=== PATIENT | male | born 1965 | race Caucasian/White ===

== ENCOUNTER 2017-04-30 08:36 | Emergency (ER) | payer BC ==
[2017-04-30] MEDS ORDERED: HYDROmorphone 0.5 MG/0.5 ML SYRINGE IVP STA ×2 (09:04→11:17)
[2017-04-30] MEDS ORDERED: ONDANSETRON 4 MG/2 ML VIAL IVP STA (09:04)
[2017-04-30] MEDS ORDERED: SODIUM CHLORIDE 0.9% 2,000 ML IV STA (09:04)
[2017-04-30] MEDS ORDERED: ACETAMINOPHEN TAB 500 MG TAB PO STA (09:30)
--- NOTE | 2017-04-30 09:31 | ED ---
Abdominal Pain HPI - General Chief Complaint: Abdominal Pain Stated Complaint: Abd Pain, Headache, Weak Time Seen by Provider: 04/30/17 08:49 Source: patient, RN notes reviewed Mode of arrival: wheelchair Limitations: no limitations - History of Present Illness Initial Comments: This a 52-year-old male presents emergency Department chief complaint abdominal pain. Patient states the pressure yesterday as worsen. He states it's in his right lower quadrant states that he's been having nausea, diarrhea throughout the night. Patient states that he just does not feel well he states he aches all over does states that he took ibuprofen for seizure last night. Patient denies any dysuria or hematuria. Patient had a prior hernia repairs no other abdominal surgeries. Patient has no history of diverticulitis, colitis. Patient denies chest pain or shortness of breath denies any URI symptoms. Denies sick contacts no recent traveling - Related Data Home Medications Medication Instructions Recorded Confirmed Ibuprofen [Motrin] 400 - 800 mg PO Q6HR PRN 04/30/17 04/30/17 Previous Rx's Medication Instructions Recorded Dicyclomine [Bentyl] 20 mg PO TID #30 tablet 04/30/17 Ondansetron Odt [Zofran Odt] 4 mg PO Q8HR PRN #10 tab 04/30/17 Allergies Allergy/AdvReac Type Severity Reaction Status Date / Time No Known Allergies Allergy Verified 04/30/17 09:04 Review of Systems ROS Statement: Those systems with pertinent positive or pertinent negative responses have been documented in the HPI. ROS Other: All systems not noted in ROS Statement are negative. Past Medical History Past Medical History: No Reported History History of Any Multi-Drug Resistant Organisms: None Reported Past Surgical History: Adenoidectomy, Hernia Repair, Orthopedic Surgery, Tonsillectomy Additional Past Surgical History / Comment(s): rotator cuff/bicep muscle cyst removed Past Psychological History: No Psychological Hx Reported Smoking Status: Never smoker Past Alcohol Use History: Rare Past Drug Use History: None Reported General Exam Limitations: no limitations General appearance: alert, in no apparent distress Head exam: Present: atraumatic, normocephalic, normal inspection Respiratory exam: Present: normal lung sounds bilaterally. Absent: respiratory distress, wheezes, rales, rhonchi, stridor Cardiovascular Exam: Present: normal rhythm, tachycardia, normal heart sounds. Absent: systolic murmur, diastolic murmur, rubs, gallop, clicks GI/Abdominal exam: Present: soft, tenderness (Mild tenderness right lower quadrant), normal bowel sounds. Absent: distended, guarding, rebound, rigid Back exam: Present: CVA tenderness (R). Absent: CVA tenderness (L) Skin exam: Present: warm, dry, intact, normal color. Absent: rash Course Vital Signs 04/30/17 04/30/17 08:36 11:14 Temperature 100.7 F H 101.2 F H Pulse Rate 107 H 95 Respiratory 18 20 Rate Blood Pressure 113/69 107/74 O2 Sat by Pulse 100 98 Oximetry Medical Decision Making - Medical Decision Making This a 52-year-old male presents emergency Department chief complaint of diarrhea, abdominal pain. Patient has blood work was reviewed shows mild elevation of white count, otherwise within normal limits. Patient CT is is consistent with gastroenteritis. Patient we discharged with denies medication, Bentyl and close follow-up with primary care physician. We discussed controlling fever Tylenol Motrin. - Lab Data Result diagrams: 04/30/17 09:00 04/30/17 09:00 Lab Results 04/30/17 04/30/17 04/30/17 Range/Units 09:00 09:00 09:00 WBC 15.4 H (3.8-10.6) k/uL RBC 5.18 (4.30-5.90) m/uL Hgb 14.7 (13.0-17.5) gm/dL Hct 44.6 (39.0-53.0) % MCV 86.0 (80.0-100.0) fL MCH 28.4 (25.0-35.0) pg MCHC 33.0 (31.0-37.0) g/dL RDW 14.3 (11.5-15.5) % Plt Count 281 (150-450) k/uL Neutrophils % 86 % Lymphocytes % 7 % Monocytes % 5 % Eosinophils % 0 % Basophils % 0 % Neutrophils # 13.3 H (1.3-7.7) k/uL Lymphocytes # 1.1 (1.0-4.8) k/uL Monocytes # 0.8 (0-1.0) k/uL Eosinophils # 0.0 (0-0.7) k/uL Basophils # 0.1 (0-0.2) k/uL PT (9.0-12.0) sec INR (<1.2) APTT (22.0-30.0) sec Sodium 134 L (137-145) mmol/L Potassium 4.4 (3.5-5.1) mmol/L Chloride 99 (98-107) mmol/L Carbon Dioxide 24 (22-30) mmol/L Anion Gap 11 mmol/L BUN 21 H (9-20) mg/dL Creatinine 1.12 (0.66-1.25) mg/dL Est GFR (MDRD) Af Amer >60 (>60 ml/min/1.73 sqM) Est GFR (MDRD) Non-Af >60 (>60 ml/min/1.73 sqM) Glucose 105 H (74-99) mg/dL Plasma Lactic Acid J Luis 2.0 (0.7-2.0) mmol/L Calcium 9.5 (8.4-10.2) mg/dL Total Bilirubin 0.7 (0.2-1.3) mg/dL AST 39 (17-59) U/L ALT 67 (21-72) U/L Alkaline Phosphatase 48 (38-126) U/L Total Protein 7.2 (6.3-8.2) g/dL Albumin 4.5 (3.5-5.0) g/dL Amylase 35 (30-110) U/L Lipase 65 (23-300) U/L Urine Color Urine Appearance (Clear) Urine pH (5.0-8.0) Ur Specific [place] (1.001-1.035) Urine Protein (Negative) Urine Glucose (UA) (Negative) Urine Ketones (Negative) Urine Blood (Negative) Urine Nitrite (Negative) Urine Bilirubin (Negative) Urine Urobilinogen (<2.0) mg/dL Ur Leukocyte Esterase (Negative) 04/30/17 04/30/17 Range/Units 09:00 09:00 WBC (3.8-10.6) k/uL RBC (4.30-5.90) m/uL Hgb (13.0-17.5) gm/dL Hct (39.0-53.0) % MCV (80.0-100.0) fL MCH (25.0-35.0) pg MCHC (31.0-37.0) g/dL RDW (11.5-15.5) % Plt Count (150-450) k/uL Neutrophils % % Lymphocytes % % Monocytes % % Eosinophils % % Basophils % % Neutrophils # (1.3-7.7) k/uL Lymphocytes # (1.0-4.8) k/uL Monocytes # (0-1.0) k/uL Eosinophils # (0-0.7) k/uL Basophils # (0-0.2) k/uL PT 11.1 (9.0-12.0) sec INR 1.1 (<1.2) APTT 25.1 (22.0-30.0) sec Sodium (137-145) mmol/L Potassium (3.5-5.1) mmol/L Chloride (98-107) mmol/L Carbon Dioxide (22-30) mmol/L Anion Gap mmol/L BUN (9-20) mg/dL Creatinine (0.66-1.25) mg/dL Est GFR (MDRD) Af Amer (>60 ml/min/1.73 sqM) Est GFR (MDRD) Non-Af (>60 ml/min/1.73 sqM) Glucose (74-99) mg/dL Plasma Lactic Acid J Luis (0.7-2.0) mmol/L Calcium (8.4-10.2) mg/dL Total Bilirubin (0.2-1.3) mg/dL AST (17-59) U/L ALT (21-72) U/L Alkaline Phosphatase (38-126) U/L Total Protein (6.3-8.2) g/dL Albumin (3.5-5.0) g/dL Amylase (30-110) U/L Lipase (23-300) U/L Urine Color Yellow Urine Appearance Clear (Clear) Urine pH 6.5 (5.0-8.0) Ur Specific [place] 1.017 (1.001-1.035) Urine Protein Negative (Negative) Urine Glucose (UA) Negative (Negative) Urine Ketones Negative (Negative) Urine Blood Negative (Negative) Urine Nitrite Negative (Negative) Urine Bilirubin Negative (Negative) Urine Urobilinogen <2.0 (<2.0) mg/dL Ur Leukocyte Esterase Negative (Negative) Disposition Clinical Impression: Abdominal pain, Gastroenteritis Disposition: HOME SELF-CARE Condition: Stable Instructions: Gastroenteritis (ED) Additional Instructions: Please return to the Emergency Department if symptoms worsen or any other concerns. Prescriptions: Dicyclomine [Bentyl] 20 mg PO TID #30 tablet Ondansetron Odt [Zofran Odt] 4 mg PO Q8HR PRN #10 tab PRN Reason: Nausea Referrals: Armando Smith MD [STAFF PHYSICIAN] - 1-2 days Time of Disposition: 11:18
[2017-04-30 09:52] LABS: Appearance,Urine Clear (Clear); Bilirubin,Urine Negative (Negative); Glucose,Urine (UA) Negative (Negative); Ketones,Urine Negative (Negative); Leukocyte Esterase,Urine Negative (Negative); Nitrite,Urine Negative (Negative); PH, Urine 6.5 (5.0-8.0); Protein,Urine Negative (Negative); Specific Gravity,Urine 1.017 (1.001-1.035); UA Billing (MACRO vs. MICRO) CHEM; Urobilinogen,Urine <2.0 mg/dL (<2.0)
[2017-04-30 09:55] LABS: INR 1.1 (<1.2); Partial Thromboplastin Time 25.1 sec (22.0-30.0); Prothrombin Time 11.1 sec (9.0-12.0)
[2017-04-30 10:03] LABS: ALT 67 U/L (21-72); AST 39 U/L (17-59); Alkaline Phosphatase 48 U/L (38-126); Amylase 35 U/L (30-110); Anion Gap 11 mmol/L; Blood Urea Nitrogen 21 mg/dL (9-20); Calcium 9.5 mg/dL (8.4-10.2); Carbon Dioxide 24 mmol/L (22-30); Chloride 99 mmol/L (98-107); Glucose 105 mg/dL (74-99); Non-African American GFR(MDRD) >60 (>60 ml/min/1.73 sqM); Potassium 4.4 mmol/L (3.5-5.1); Sodium 134 mmol/L (137-145); Total Bilirubin 0.7 mg/dL (0.2-1.3); Total Protein 7.2 g/dL (6.3-8.2)
[2017-04-30] MEDS ORDERED: RX INFO: IV CONTRAST WAS GIVEN 1 EACH MISC MISCELLANE PRN (10:05)
[2017-04-30 10:13] LABS: Basophils # (A) 0.1 k/uL (0-0.2); Basophils % (A) 0 %; CH 28.8; CHCM 33.6; Eosinophils % (A) 0 %; HCT 44.6 % (39.0-53.0); HDW 2.33; HGB 14.7 gm/dL (13.0-17.5); Luc # (Auto) 0.11; Luc % (Auto) 1; Lymphocytes # (A) 1.1 k/uL (1.0-4.8); Lymphocytes % (A) 7 %; MCH 28.4 pg (25.0-35.0); Mean Platelet Volume 8.2; Monocytes # (A) 0.8 k/uL (0-1.0); Monocytes % (A) 5 %; Neutrophils # (A) 13.3 k/uL (1.3-7.7); Neutrophils % (A) 86 %; RBC 5.18 m/uL (4.30-5.90); RDW 14.3 % (11.5-15.5); WBC 15.4 k/uL (3.8-10.6); WBC (Perox) 15.02
--- NOTE | 2017-04-30 11:15 | CT ---
EXAMINATION TYPE: CT abdomen pelvis w con DATE OF EXAM: 04/30/2017 COMPARISON: NONE HISTORY: Abd pain CT DLP: 1263.2 mGycm CONTRAST: CT scan of the abdomen and pelvis is performed without Oral Contrast and with IV Contrast, patient in jected with 100 mL of Omnipaque 300. FINDINGS: LUNG BASES-: No visible nodule. No infiltrate. LIVER/GB: No calcified gallstones. Hepatic steatosis noted. No space occupying hepatic lesion. Wenceslao iary tree is of normal caliber. PANCREAS: No inflammation. No distinct mass. SPLEEN: No splenic enlargement. No lesion seen. ADRENALS: No nodule. No thickening. KIDNEYS/BLADDER: No hydronephrosis. No nephrolithiasis. No disctinct renal mass. Urinary bladder g rossly unremarkable. BOWEL: Normal appendix. Fluid distended small and large bowel may reflect gastroenteritis. Correlate clinically. GENITAL ORGANS: No gross abnormality. LYMPH NODES: No greater than 1cm abdominal or pelvic lymph nodes are appreciated. AORTA: No significant abnormality. OSSEOUS STRUCTURES: No significant abnormality is seen. OTHER: No significant additional abnormality is seen. IMPRESSION: 1. Correlate for gastroenteritis. 2. Normal appendix.
[2017-04-30 11:43] VITALS: RESP 18; TEMP 100.7
[2017-04-30 12:18] VITALS: BP 115/60; PULSE 79
== END 2017-04-30 12:16 | disposition home or self-care (01) ==
LOC: EC 08:36
DX: K52.9 Noninfective gastroenteritis and colitis, unspecified (principal); D72.829 Elevated white blood cell count, unspecified; R00.0 Tachycardia, unspecified
CPT/HCPCS: 36415; 74177; 80053; 81003; 82150; 83605; 83690; 85025; 85610; 85730; 87040; 96361; 96374; 96375; 96376; 99284

== ENCOUNTER → 2017-05-23 | Day surgery (SDC) | payer BC ==
[2017-05-22 09:33] VITALS: BMI 32.3
[~2017-05-23] MED LIST: LACTATED RINGERS 1,000 ML IV ONE; LACTATED RINGERS 1,000 ML IV SCH; LIDOCAINE 1% 20 ML VIAL (10MG/ML) FOR IV START INTRADERMA PRN; LIDOCAINE 1% INJ 10MG/ML (20 ML MDV) ONE; PROPOFOL 10 MG/ML 20 ML VIAL IV ONE
[2017-05-23 22:07] VITALS: BP 128/79; PULSE 58; RESP 18; TEMP 98
--- NOTE | 2017-05-23 22:55 | PCN ---
PROCEDURE NOTE REQUESTING PHYSICIAN: None. BRIEF HISTORY: Patient is a 52-year-old pleasant white male scheduled for a colonoscopy as part of evaluation of abdominal pain and change in bowel habits. He had an episode of severe lower abdominal pain followed by diarrhea and fever for 5 days, went to the emergency room, had a CT of the abdomen done that showed thickening of the right colon. He was treated with antibiotics for 10 days. He still had persistent symptoms. He was given a 2nd course of antibiotics. He is doing much better, but still has some lower abdominal pain and occasional diarrhea. He was then scheduled for a colonoscopy to evaluate further. PROCEDURE PERFORMED: Colonoscopy with snare polypectomy and biopsy. PREOPERATIVE DIAGNOSIS: Lower abdominal pain and diarrhea. IV SEDATION: By anesthesia. PROCEDURE: After informed consent was obtained from the patient, he was brought to the endoscopy unit. IV conscious sedation was administered by Anesthesia under continuous monitoring. Initial digital examination was normal. The Olympus GI 190 video colonoscope was advanced into the rectum and gradually advanced to the cecum without any difficulty. Careful examination was performed as the scope was carefully being withdrawn. The ileocecal valve and appendiceal orifice were visualized and appeared normal. mucosa of the cecum, ascending colon appeared normal. In the ascending colon, there was a 1-cm polyp that was removed by snare polypectomy. The rest of the ascending colon, transverse colon, descending colon, sigmoid colon, and rectum appeared normal. In the rectum, retroflexion was performed. No lesions were noted. Random biopsies were done from the transverse colon and descending colon and the patient tolerated the procedure well. IMPRESSION: 1. 1-cm ascending colon polyp, status post snare polypectomy. 2. Rest of the colon appeared normal. RECOMMENDATIONS: Findings of this examination were discussed with the patient as well as his family. He was advised to follow up wet the biopsy results. If the biopsy shows a tubular adenoma, he can have a repeat colonoscopy in 5 years. MMODL / IJN: [id number] /
== END ==
LOC: ORWHC2ENDO 10:03
PROVIDERS: ATTEND Internal Medicine Gastroenterology
DX: D12.2 Benign neoplasm of ascending colon (principal); R10.30 Lower abdominal pain, unspecified; R19.7 Diarrhea, unspecified; Z79.899 Other long term (current) drug therapy
CPT/HCPCS: 88305; 45380; 45385; J2001; J2704

== ENCOUNTER 2017-08-08 15:27 | Emergency (ER) | payer BC ==
[2017-08-08 15:42] VITALS: TEMP 97.1
--- NOTE | 2017-08-08 16:14 | XR ---
EXAMINATION TYPE: XR chest 2V DATE OF EXAM: 08/08/2017 COMPARISON: 07/07/2014 TECHNIQUE: PA and lateral views submitted. HISTORY: Pain FINDINGS: The lungs are clear and there is no pneumothorax, pleural effusion, or focal pneumonia. Chronic rib cage deformity in the left. The lungs are clear. Hypertrophic and degenerative change of the spine. IMPRESSION: 1. No acute process.
[2017-08-08] MEDS ORDERED: KETOROLAC 30 MG/ML 1 ML VIAL IVP STA (17:20)
[2017-08-08] MEDS ORDERED: RX INFO: IV CONTRAST WAS GIVEN 1 EACH MISC MISCELLANE PRN (17:20)
[2017-08-08] MEDS ORDERED: ONDANSETRON 4 MG/2 ML VIAL IVP STA (17:20)
[2017-08-08] MEDS ORDERED: MORPHINE SULFATE 4 MG/ML SYRINGE IVP STA (17:20)
--- NOTE | 2017-08-08 17:34 | ED ---
General Adult HPI - General Chief complaint: Recheck/Abnormal Lab/Rx Stated complaint: Side pain Time Seen by Provider: 08/08/17 16:57 Source: patient Mode of arrival: wheelchair Limitations: no limitations - History of Present Illness Initial comments: Patient is a 52-year-old male presents with chief complaint of left lower back/ flank pain. The patient states this started about 2 hours ago when he sneezed at home. Patient stays immediately had intense pain to the back. Patient states it's sharp and stabbing in nature. It is aggravated with movement, bending, twisting. Bleeding factors are sitting still. Patient has never had pain like this before. Timing is constant. - Related Data Home Medications Medication Instructions Recorded Confirmed Acetaminophen [Tylenol Extra 1,000 mg PO Q6H PRN 08/08/17 08/08/17 Strength] Previous Rx's Medication Instructions Recorded Acetaminophen Tab [Tylenol Tab] 1,000 mg PO Q6HR #30 tablet 08/08/17 Diazepam [Valium] 5 mg PO TID #10 tab 08/08/17 Ibuprofen [Motrin] 800 mg PO Q8H #20 tab 08/08/17 Allergies Allergy/AdvReac Type Severity Reaction Status Date / Time No Known Allergies Allergy Verified 08/08/17 16:59 Review of Systems ROS Statement: Those systems with pertinent positive or pertinent negative responses have been documented in the HPI. ROS Other: All systems not noted in ROS Statement are negative. Gastrointestinal: Reports: nausea Musculoskeletal: Reports: back pain Past Medical History Past Medical History: No Reported History History of Any Multi-Drug Resistant Organisms: None Reported Past Surgical History: Adenoidectomy, Hernia Repair, Orthopedic Surgery, Tonsillectomy Additional Past Surgical History / Comment(s): rotator cuff/bicep muscle cyst removed Past Anesthesia/Blood Transfusion Reactions: No Reported Reaction Past Psychological History: No Psychological Hx Reported Smoking Status: Never smoker - Past Family History Mother Family Medical History: Cancer General Exam Limitations: no limitations General appearance: alert, in no apparent distress Head exam: Present: atraumatic, normocephalic Eye exam: Present: normal appearance ENT exam: Present: mucous membranes moist Respiratory exam: Present: normal lung sounds bilaterally. Absent: respiratory distress, wheezes Cardiovascular Exam: Present: regular rate, normal rhythm GI/Abdominal exam: Present: soft. Absent: distended, tenderness Rectal exam: Present: deferred Back exam: Present: tenderness, CVA tenderness (L), muscle spasm. Absent: CVA tenderness (R) Neurological exam: Present: alert, oriented X3 Psychiatric exam: Present: normal affect, normal mood Skin exam: Present: warm, dry, intact Course Vital Signs 08/08/17 08/08/17 15:39 18:56 Temperature 97.1 F L Pulse Rate 87 56 L Respiratory 17 16 Rate Blood Pressure 136/77 113/71 O2 Sat by Pulse 97 97 Oximetry Medical Decision Making - Medical Decision Making Patient is a 52-year-old male presents with a chief complaint of left lower back and flank pain after sneezing. Initial evaluation shows stable vital signs , patient is in no acute distress. Patient has significant pain with movement. Patient was given a dose pain medication, he'll be evaluated basic labs and a computed tomography scan of the abdomen and pelvis with contrast. 7:57 PM Lab evaluation of this patient is unremarkable. Computed tomography scan of the abdomen and pelvis with contrast does not show any acute abnormality. Of note, there is colonic diverticula however there is no evidence of diverticulitis. Patient was informed of these findings. At this time, patient' s pain is likely musculoskeletal in nature. Patient was instructed to follow- up with his primary care doctor in 1-2 days or return to the emergency department for reevaluation if symptoms worsen or change. Patient was instructed to take Motrin, Tylenol, and as needed Valium for pain. - Lab Data Result diagrams: 08/08/17 17:35 08/08/17 17:35 Lab Results 08/08/17 08/08/17 08/08/17 Range/Units 17:35 17:35 18:38 WBC 8.8 (3.8-10.6) k/uL RBC 5.22 (4.30-5.90) m/uL Hgb 15.0 (13.0-17.5) gm/dL Hct 44.4 (39.0-53.0) % MCV 85.0 (80.0-100.0) fL MCH 28.7 (25.0-35.0) pg MCHC 33.8 (31.0-37.0) g/dL RDW 13.1 (11.5-15.5) % Plt Count 298 (150-450) k/uL Neutrophils % 57 % Lymphocytes % 29 % Monocytes % 7 % Eosinophils % 3 % Basophils % 1 % Neutrophils # 5.0 (1.3-7.7) k/uL Lymphocytes # 2.6 (1.0-4.8) k/uL Monocytes # 0.7 (0-1.0) k/uL Eosinophils # 0.3 (0-0.7) k/uL Basophils # 0.1 (0-0.2) k/uL Sodium 137 (137-145) mmol/L Potassium 4.7 (3.5-5.1) mmol/L Chloride 102 (98-107) mmol/L Carbon Dioxide 26 (22-30) mmol/L Anion Gap 9 mmol/L BUN 24 H (9-20) mg/dL Creatinine 0.97 (0.66-1.25) mg/dL Est GFR (CKD-EPI)AfAm >90 (>60 ml/min/1.73 sqM) Est GFR (CKD-EPI)NonAf >90 (>60 ml/min/1.73 sqM) Glucose 88 (74-99) mg/dL Calcium 9.7 (8.4-10.2) mg/dL Urine Color Yellow Urine Appearance Clear (Clear) Urine pH 5.5 (5.0-8.0) Ur Specific [place] 1.024 (1.001-1.035) Urine Protein Negative (Negative) Urine Glucose (UA) Negative (Negative) Urine Ketones Negative (Negative) Urine Blood Negative (Negative) Urine Nitrite Negative (Negative) Urine Bilirubin Negative (Negative) Urine Urobilinogen <2.0 (<2.0) mg/dL Ur Leukocyte Esterase Negative (Negative) Disposition Clinical Impression: Low back pain Disposition: HOME SELF-CARE Condition: Good Prescriptions: Acetaminophen Tab [Tylenol Tab] 1,000 mg PO Q6HR #30 tablet Diazepam [Valium] 5 mg PO TID #10 tab Ibuprofen [Motrin] 800 mg PO Q8H #20 tab Referrals: None,Stated [Primary Care Provider] - 1-2 days
[2017-08-08 18:11] LABS: Basophils # (A) 0.1 k/uL (0-0.2); Basophils % (A) 1 %; Eosinophils # (A) 0.3 k/uL (0-0.7); Eosinophils % (A) 3 %; HCT 44.4 % (39.0-53.0); Lymphocytes # (A) 2.6 k/uL (1.0-4.8); Lymphocytes % (A) 29 %; MCH 28.7 pg (25.0-35.0); MCHC 33.8 g/dL (31.0-37.0); Mean Platelet Volume 7.3; Monocytes # (A) 0.7 k/uL (0-1.0); Monocytes % (A) 7 %; Neutrophils % (A) 57 %; Platelet Count 298 k/uL (150-450); RBC 5.22 m/uL (4.30-5.90); RDW 13.1 % (11.5-15.5); WBC 8.8 k/uL (3.8-10.6)
[2017-08-08 18:20] LABS: Anion Gap 9 mmol/L; Blood Urea Nitrogen 24 mg/dL (9-20); Calcium 9.7 mg/dL (8.4-10.2); Carbon Dioxide 26 mmol/L (22-30); Chloride 102 mmol/L (98-107); Glucose 88 mg/dL (74-99); Potassium 4.7 mmol/L (3.5-5.1); Sodium 137 mmol/L (137-145)
[2017-08-08 18:57] VITALS: RESP 16
[2017-08-08 18:57] LABS: Appearance,Urine Clear (Clear); Bilirubin,Urine Negative (Negative); Blood,Urine Negative (Negative); Color,Urine Yellow; Glucose,Urine (UA) Negative (Negative); Ketones,Urine Negative (Negative); Leukocyte Esterase,Urine Negative (Negative); Nitrite,Urine Negative (Negative); PH, Urine 5.5 (5.0-8.0); Protein,Urine Negative (Negative); Specific Gravity,Urine 1.024 (1.001-1.035); Urobilinogen,Urine <2.0 mg/dL (<2.0)
--- NOTE | 2017-08-08 19:06 | CT ---
EXAMINATION TYPE: CT abdomen pelvis w con DATE OF EXAM: 08/08/2017 COMPARISON: 04/30/2017 HISTORY: Right sided pain after sneezing CT DLP: 1112 mGycm Automated exposure control for dose reduction was used. TECHNIQUE: Helical acquisition of images was performed from the lung bases through the pelvis. CONTRAST: Performed without Oral Contrast and with IV Contrast, patient injected with 100 mL of Omnipaque 300. FINDINGS: Lung bases are clear. There is no pleural effusion. Heart size is normal. The liver spleen pancreas gallbladder appear normal. Bile ducts are not dilated. There is no adrenal mass. Kidneys show satisfactory contrast opacification. There is no hydronephrosi s. There is no retroperitoneal adenopathy. Ureters are not dilated. There is no ascites. I see no intestinal wall thickening. There are no dilated loops. Appendix appear s normal. Bladder distends smoothly. There is no sign of a pelvic mass. There is no ascites. There is no sign of free air. There are a few sigmoid diverticula. There is no sign of diverticulitis. I see no bony destructive process. Lumbar spine is intact. IMPRESSION: THERE ARE A FEW SIGMOID DIVERTICULA. OTHERWISE NEGATIVE CT SCAN OF THE ABDOMEN AND PELVIS.
[2017-08-08 20:12] VITALS: BP 117/59; PULSE 59
== END 2017-08-08 20:11 | disposition home or self-care (01) ==
LOC: EC 15:27
DX: M54.5 Low back pain (principal); K57.32 Diverticulitis of large intestine without perforation or abscess without bleeding; R10.9 Unspecified abdominal pain; R06.7 Sneezing
CPT/HCPCS: 96375 ×3; 96374 ×2; 99284 ×2; 36415; 80048; 85025; 81003; 71046; 74177; J2270; J2405; J1885; Q9967

== ENCOUNTER 2018-01-27 17:51 | Observation (INO) | payer BC ==
[2018-01-27] MEDS ORDERED: SODIUM CHLORIDE 0.9% 1,000 ML IV STA (18:23)
[2018-01-27] MEDS ORDERED: MECLIZINE 12.5 MG TAB PO STA (18:24)
[2018-01-27] MEDS ORDERED: METOCLOPRAMIDE 5 MG/ML 2 ML VIAL IVP STA (18:24)
--- NOTE | 2018-01-27 18:27 | ED ---
General Adult HPI - General Chief complaint: Dizziness Stated complaint: Dizzy Time Seen by Provider: 01/27/18 18:18 Source: patient, family, RN notes reviewed Mode of arrival: wheelchair Limitations: no limitations - History of Present Illness Initial comments: Patient is a pleasant 52-year-old male presenting to emergency department with dizziness. Onset was a few hours ago. Fairly sudden onset. Patient feels lightheaded and dizzy. Dizziness is further described as a spinning type sensation. Dizziness is worse with upright position and movement. Dizziness improved with lying down and closing his eyes. No headache at this time. No headache today. Patient has had occasional headaches over the past couple of weeks. Patient has felt nauseated without vomiting. Patient felt if symptoms worsen he could pass out. No confusion or speech problems. No weakness. - Related Data Home Medications Medication Instructions Recorded Confirmed Phentermine HCl [Adipex-P] 37.5 mg PO DAILY 01/27/18 01/27/18 Allergies Allergy/AdvReac Type Severity Reaction Status Date / Time metoclopramide [From Reglan] AdvReac Dyspnea Verified 01/27/18 18:52 Review of Systems ROS Statement: Those systems with pertinent positive or pertinent negative responses have been documented in the HPI. ROS Other: All systems not noted in ROS Statement are negative. Constitutional: Denies: fever Eyes: Denies: eye pain ENT: Denies: ear pain Respiratory: Denies: cough Cardiovascular: Denies: chest pain Endocrine: Denies: fatigue Gastrointestinal: Denies: abdominal pain Genitourinary: Denies: dysuria Musculoskeletal: Denies: back pain Skin: Denies: rash Neurological: Reports: vertigo. Denies: weakness, confusion Past Medical History Past Medical History: No Reported History History of Any Multi-Drug Resistant Organisms: None Reported Past Surgical History: Adenoidectomy, Hernia Repair, Orthopedic Surgery, Tonsillectomy Additional Past Surgical History / Comment(s): rotator cuff/bicep muscle cyst removed Past Anesthesia/Blood Transfusion Reactions: No Reported Reaction Past Psychological History: No Psychological Hx Reported Smoking Status: Never smoker Past Alcohol Use History: None Reported Past Drug Use History: None Reported - Past Family History Mother Family Medical History: Cancer General Exam Limitations: no limitations General appearance: alert, in no apparent distress Head exam: Present: atraumatic Eye exam: Present: normal appearance, PERRL, EOMI. Absent: nystagmus ENT exam: Present: normal oropharynx, TM's normal bilaterally Neck exam: Present: normal inspection Respiratory exam: Present: normal lung sounds bilaterally Cardiovascular Exam: Present: regular rate, normal rhythm GI/Abdominal exam: Present: soft. Absent: tenderness Extremities exam: Present: normal inspection. Absent: pedal edema, calf tenderness Neurological exam: Present: alert, oriented X3, CN II-XII intact. Absent: motor sensory deficit Expanded Neurological exam: Present: protecting the airway Patient oriented to: Present: person, place, time Speech: Present: fluid speech Cranial nerves: EOM's Intact: Normal, Facial Sensation: Normal Cerebellar function: Finger to Nose: Normal Sensory exam: Upper Extremity Light Touch: Normal, Lower Extremity Light Touch: Normal Motor strength exam: RUE: 5, LUE: 5, RLE: 5, LLE: 5 Eye Response: (4) open spontaneously Motor Response: (6) obeys commands Verbal Response: (5) oriented Psychiatric exam: Present: normal affect, normal mood Skin exam: Present: normal color Course Vital Signs 01/27/18 01/27/18 01/27/18 17:53 18:37 18:45 Temperature 97.7 F Pulse Rate 77 64 78 Respiratory 18 18 20 Rate Blood Pressure 127/77 117/70 120/62 O2 Sat by Pulse 95 97 98 Oximetry 01/27/18 01/27/18 19:45 21:34 Temperature Pulse Rate 75 55 L Respiratory 20 18 Rate Blood Pressure 122/58 138/69 O2 Sat by Pulse 96 96 Oximetry EKG Findings - EKG Comments: EKG Findings:: Normal sinus rhythm 63. W[place] 128. QRS 104. QT 382. QTC 390. Normal axis. Normal QRS. No acute ST change. Medical Decision Making - Medical Decision Making Patient reevaluated and is somewhat improved. Patient had difficulty getting up and ambulating. Patient and family updated on results and plan. Case was discussed in detail with Dr. elizalde, who will admit for Dr. bardales. Patient did earlier have restlessness associated following Reglan. Patient was given several medications with only some improvement of the restlessness. - Lab Data Result diagrams: 01/27/18 18:06 01/27/18 18:06 Lab Results 01/27/18 01/27/18 01/27/18 Range/Units 18:06 18:06 18:06 WBC 8.2 (3.8-10.6) k/uL RBC 5.15 (4.30-5.90) m/uL Hgb 14.8 (13.0-17.5) gm/dL Hct 44.7 (39.0-53.0) % MCV 86.8 (80.0-100.0) fL MCH 28.8 (25.0-35.0) pg MCHC 33.2 (31.0-37.0) g/dL RDW 13.2 (11.5-15.5) % Plt Count 278 (150-450) k/uL Neutrophils % 58 % Lymphocytes % 31 % Monocytes % 6 % Eosinophils % 3 % Basophils % 1 % Neutrophils # 4.7 (1.3-7.7) k/uL Lymphocytes # 2.5 (1.0-4.8) k/uL Monocytes # 0.5 (0-1.0) k/uL Eosinophils # 0.3 (0-0.7) k/uL Basophils # 0.1 (0-0.2) k/uL PT 10.2 (9.0-12.0) sec INR 1.0 (<1.2) APTT 24.3 (22.0-30.0) sec Sodium 140 (137-145) mmol/L Potassium 4.2 (3.5-5.1) mmol/L Chloride 105 (98-107) mmol/L Carbon Dioxide 25 (22-30) mmol/L Anion Gap 10 mmol/L BUN 19 (9-20) mg/dL Creatinine 1.12 (0.66-1.25) mg/dL Est GFR (CKD-EPI)AfAm 88 (>60 ml/min/1.73 sqM) Est GFR (CKD-EPI)NonAf 77 (>60 ml/min/1.73 sqM) Glucose 111 H (74-99) mg/dL Calcium 9.5 (8.4-10.2) mg/dL Total Bilirubin 0.5 (0.2-1.3) mg/dL AST 37 (17-59) U/L ALT 59 (21-72) U/L Alkaline Phosphatase 46 (38-126) U/L Total Protein 6.9 (6.3-8.2) g/dL Albumin 4.3 (3.5-5.0) g/dL - Radiology Data Radiology results: report reviewed (Computed tomography scan of the brain shows no acute intercranial abnormality. CT angiogram head and neck shows no large vessel occlusion or aneurysm change. No stenosis.) Disposition Clinical Impression: Vertigo Disposition: ADMITTED IP TO THIS HOSP Is patient prescribed a controlled substance at d/c from ED?: No Referrals: Armando Smith MD [Primary Care Provider] - 1-2 days Decision Time: 22:55
[2018-01-27 18:33] LABS: Basophils # (A) 0.1 k/uL (0-0.2); Basophils % (A) 1 %; Eosinophils # (A) 0.3 k/uL (0-0.7); Eosinophils % (A) 3 %; HCT 44.7 % (39.0-53.0); HGB 14.8 gm/dL (13.0-17.5); Lymphocytes # (A) 2.5 k/uL (1.0-4.8); Lymphocytes % (A) 31 %; MCH 28.8 pg (25.0-35.0); MCHC 33.2 g/dL (31.0-37.0); MCV 86.8 fL (80.0-100.0); Monocytes # (A) 0.5 k/uL (0-1.0); Monocytes % (A) 6 %; Neutrophils # (A) 4.7 k/uL (1.3-7.7); Neutrophils % (A) 58 %; Platelet Count 278 k/uL (150-450); RBC 5.15 m/uL (4.30-5.90); RDW 13.2 % (11.5-15.5); WBC 8.2 k/uL (3.8-10.6)
[2018-01-27 18:42] LABS: Partial Thromboplastin Time 24.3 sec (22.0-30.0); Prothrombin Time 10.2 sec (9.0-12.0)
[2018-01-27 18:44] LABS: Albumin 4.3 g/dL (3.5-5.0); Calcium 9.5 mg/dL (8.4-10.2); Potassium 4.2 mmol/L (3.5-5.1); Total Bilirubin 0.5 mg/dL (0.2-1.3); Total Protein 6.9 g/dL (6.3-8.2)
[2018-01-27] MEDS ORDERED: diphenhydrAMINE 50 MG/ML 1 ML VIAL IVP STA ×2 (18:48→18:54)
[2018-01-27] MEDS ORDERED: LORazepam 2 MG/ML INJ IV STA ×2 (19:11→19:48)
--- NOTE | 2018-01-27 20:32 | CT ---
EXAMINATION TYPE: CT brain wo con DATE OF EXAM: 01/27/2018 COMPARISON: 09/04/2014 HISTORY: 52-year-old male vertical, Dizziness. TECHNIQUE: Examination was done in axial plane without intravenous contrast. Coronal and sagittal r econstructions performed. CT DLP: 1128.48 mGycm Automated exposure control for dose reduction was used. FINDINGS: Prominent calvarial artifact. Within this limitation, there is no convincing evidence of acute intra cranial hemorrhage, acute ischemic changes, mass, mass-effect, or extra-axial fluid collection. Ther e is no effacement of cerebral sulci or basal subarachnoid cisterns. There is no hydrocephalus. The re is no midline shift. Diehl-white matter distinction is preserved. IMPRESSION: Allowing for limitations from prominent calvarial artifact, no acute intracranial abnormality seen.
[2018-01-27] MEDS ORDERED: DIAZEPAM 5 MG/ML 2 ML INJ IVP STA (20:36)
--- NOTE | 2018-01-27 20:43 | CT ---
EXAMINATION TYPE: CT angio head neck DATE OF EXAM: 01/27/2018 COMPARISON: CT brain same date HISTORY: 52-year-old male with vertigo, Dizziness. TECHNIQUE: Contiguous axial scanning of the head and neck performed with IV Contrast, patient injecte d with 65 mL of Isovue 370. Coronal/sagittal MIP reconstructions performed. 3-D reconstructions gener ated on a dedicated independent workstation. CT DLP: 483.64 mGycm Automated exposure control for dose reduction was used. FINDINGS: Brain: The vertebral, basilar, and internal carotid arteries remain patent without significant stenosis or o cclusion. No aneurysmal change is identified. Dural venous sinuses are patent and there is persistent origin of the right posterior cerebral artery incidentally noted. NECK: Conventional arch vessel branching anatomy. The common carotid arteries are patent. The bifurcations appear normal and the internal carotid arter ies are patent without any significant stenosis. Vertebral arteries show normal course and caliber IMPRESSION: 1. HEAD: NO LARGE VESSEL INTRACRANIAL OCCLUSION OR ANEURYSMAL CHANGE. 2. NECK: NO HEMODYNAMICALLY SIGNIFICANT STENOSIS APPRECIATED IN EITHER INTERNAL CAROTID ARTERY.
[2018-01-27] MEDS ORDERED: SODIUM CHLORIDE 0.9% 500 ML IV STA (21:09)
[2018-01-27] MEDS ORDERED: NALOXONE 0.4 MG/ML 1 ML VIAL IV PRN (22:55)
[2018-01-27] MEDS ORDERED: MECLIZINE 25 MG TAB PO PRN (22:56)
[2018-01-27] MEDS ORDERED: SODIUM CHLORIDE 0.9% 1,000 ML IV SCH (23:00)
[2018-01-28] MEDS: ONDANSETRON 4 MG/2 ML VIAL IVP PRN (13:01)
[2018-01-28] MEDS ORDERED: PATIENT'S OWN MED (Phentermine Hcl [Adipex-P] 37.5 MG) PO SCH (13:15)
[2018-01-28] MEDS ORDERED: ACETAMINOPHEN TAB 325 MG TAB PO PRN (15:45)
[2018-01-28] MEDS: ACETAMINOPHEN TAB 325 MG TAB PO PRN (16:18)
[2018-01-28 21:24] LABS: Amylase 45 U/L (30-110); C Reactive Protein <5.0 mg/L (<10.0); Lipase 87 U/L (23-300)
[2018-01-28] MEDS: ENOXAPARIN 40 MG/0.4 ML SYRINGE SQ SCH (21:40)
[2018-01-28] MEDS: IOPAMIDOL-300 CONTRAST 30 ML VIAL (ORAL USE) PO PRN ×2 (22:09→22:58)
[2018-01-28] MEDS: LACTATED RINGERS 1,000 ML IV SCH (22:10)
--- NOTE | 2018-01-28 22:12 | HP ---
HISTORY AND PHYSICAL DATE OF SERVICE: 01/28/2018 PRESENTING COMPLAINT: Dizziness. HISTORY OF PRESENTING COMPLAINT: This is a 52-year-old patient of Dr. Smith out of [place]. History was obtained from the patient and his at the bedside. Patient's chronic stable medical conditions include asthma, hyperlipidemia, irritable bowel syndrome. Patient's symptoms started about a month ago, as patient was becoming more and more tired, sometimes lethargic, dizzy; things were spinning around. Occasional nausea. Symptoms have been becoming more progressive in the last 2 or 3 days. Patient denies any skin rash. [place], but there has been no obvious insect bite. There were 3 kittens they had found. They also have some cats and dogs that are all neutered, with proper immunization. One of their dogs did get sick and was taken to the vet yesterday. Doing well as per the . 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 Patient does feel tired and rundown. The patient was somewhat lethargic after receiving some pain medications and Antivert when I was interviewing the patient. 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 The patient's sleep has been rather disturbed for quite some time and he is oftentimes tired. There is no obvious fever reported. No chills. Patient denies any use of recreational drugs. REVIEW OF SYSTEMS: CONSTITUTIONAL: Tired. No weight loss or loss of appetite. HEENT: None. RESPIRATORY: None. CARDIOVASCULAR: None. GASTROINTESTINAL: One episode of diarrhea yesterday. GENITOURINARY: None. MUSCULOSKELETAL: None. DERMATOLOGICAL: None. HEMATOLOGICAL: None. LYMPHATICS: None. PSYCHIATRY: None. NEUROLOGICAL: thought there may be a bit of slurring of speech. No focal weakness. PAST MEDICAL HISTORY: 1. Asthma. 2. Hyperlipidemia. 3. Irritable bowel syndrome. PAST SURGICAL HISTORY: 1. Adenoidectomy. 2. Hernia repair. 3. Orthopedic surgery. 4. Tonsillectomy. 5. Rotator cuff. 6. Biceps muscle cyst. SOCIAL HISTORY: No smoking. No alcohol. Denies use of recreational drugs. . 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 FAMILY HISTORY: Cancer. HOME MEDICATIONS: Adipex-P 37.5 p.o. daily. ALLERGIES: REGLAN. PHYSICAL EXAMINATION: Temperature 97.7, pulse 97, respiration 18, blood pressure 127/77, pulse ox 95% on room air. GENERAL APPEARANCE: Well built, muscular. Lying in bed. BMI 33.9. Somewhat tired- appearing. EYES: Pupils equal. Conjunctivae normal. HEENT: External appearance of nose and ears normal. Oral cavity normal. NECK: JVD not raised. Mass not palpable. RESPIRATORY: Effort normal. Lungs are clear. CARDIOVASCULAR: First and second sounds normal. No edema. ABDOMEN: Soft, non-tender. Liver and spleen not palpable. LYMPHATIC: No lymph node palpable in neck or axillae. PSYCHIATRY: Patient is somewhat tired but able to answer questions. NEUROLOGICAL: Pupils equal. No facial asymmetry. Power and sensation grossly intact. Slight slurring of the speech. INVESTIGATIONS: White count 8.2, hemoglobin 14.8. No left shift. Potassium 4.2. BUN and creatinine are normal. Liver panels all are normal. CT scan of the brain negative. CT angio of the brain negative. EKG tracing interpreted by me shows normal sinus rhythm. ASSESSMENT: 1. This is a patient who for about a month has been progressively getting more tired, occasionally dizzy, lightheaded. There has been no obvious reported fever, no outward insect bites. Patient's dog did get sick, but that only happened 2 or 3 days ago. He was excessively de-wormed, as per the . Patient has no white count, no left shift. Patient did have abdominal pain yesterday; none today. At this point there is no obvious source for his presentation. Of course, a low-grade encephalitis may present like this. Also patient is significantly sleep-deprived with severely altered sleep cycle and patient is rather exhausted, both working a night job and also attending school at the same time. This itself could explain most of his symptoms. 2. Intermittent asthma, stable. 3. Hyperlipidemia. 4. Irritable bowel syndrome. PLAN: Neurology was consulted from the ER and ordered an EEG. I will also order a CRP to check for further infection, though there is no white count or fever. We will also get an infectious disease opinion. Will also send off a UA. Given abdominal pain yesterday that was somewhat significant, we will also do a CT scan of the abdomen and pelvis with contrast. MRI of the brain will be done with gadolinium. Care was discussed with the patient and his . Questions were answered. MMFRANCISCOL / IJN: [id number] /
--- NOTE | 2018-01-29 00:13 | CT ---
EXAMINATION TYPE: CT abdomen pelvis w con DATE OF EXAM: 01/29/2018 COMPARISON: 08/08/2017 HISTORY: RLQ Pain CT DLP: 1418 mGycm Automated exposure control for dose reduction was used. TECHNIQUE: Helical acquisition of images was performed from the lung bases through the pelvis. CONTRAST: Performed with Oral Contrast and with IV Contrast, patient injected with 100 mL of Isovue 300. FINDINGS: Lung bases are clear. There is no pleural effusion. Heart size is normal. Liver spleen pancreas appear normal. Gallbladder appears normal. Bile ducts are not dilated. There is no adrenal mass. Kidneys show satisfactory contrast opacification. There is [address] on the anterior left kidney. There is no retroperitoneal adenopathy. There is no ascites. Bladder distends smoothly. There is no pelvic mass. Appendix appears normal. There is no intestinal wall thic kening. There are no dilated loops. Lumbar spine is intact. There is no sign of free air. IMPRESSION: NEGATIVE CT SCAN OF THE ABDOMEN AND PELVIS. NORMAL APPENDIX. STABLE LEFT RENAL CORTICAL CYST.
[2018-01-29] MEDS: ONDANSETRON 4 MG/2 ML VIAL IVP PRN (00:17)
[2018-01-29 00:33] LABS: Appearance,Urine Clear (Clear); Bilirubin,Urine Negative (Negative); Blood,Urine Negative (Negative); Color,Urine Yellow; Glucose,Urine (UA) Negative (Negative); Ketones,Urine Negative (Negative); Leukocyte Esterase,Urine Negative (Negative); Nitrite,Urine Negative (Negative); PH, Urine 6.5 (5.0-8.0); Protein,Urine Negative (Negative); Specific Gravity,Urine 1.014 (1.001-1.035); Urobilinogen,Urine <2.0 mg/dL (<2.0)
[2018-01-29] MEDS: ACETAMINOPHEN TAB 325 MG TAB PO PRN (04:49)
[2018-01-29] MEDS: LACTATED RINGERS 1,000 ML IV SCH ×3 (08:01→20:20)
[2018-01-29 08:40] LABS: Basophils # (A) 0.1 k/uL (0-0.2); Basophils % (A) 1 %; Eosinophils # (A) 0.3 k/uL (0-0.7); Eosinophils % (A) 4 %; HCT 46.1 % (39.0-53.0); HGB 14.6 gm/dL (13.0-17.5); Lymphocytes % (A) 42 %; MCHC 31.6 g/dL (31.0-37.0); MCV 88.7 fL (80.0-100.0); Mean Platelet Volume 7.1; Monocytes # (A) 0.5 k/uL (0-1.0); Monocytes % (A) 7 %; Neutrophils % (A) 43 %; Platelet Count 260 k/uL (150-450); RDW 13.2 % (11.5-15.5)
[2018-01-29 08:49] LABS: Albumin 3.7 g/dL (3.5-5.0); Calcium 9.4 mg/dL (8.4-10.2); Potassium 4.6 mmol/L (3.5-5.1); Total Bilirubin 0.5 mg/dL (0.2-1.3); Total Protein 6.3 g/dL (6.3-8.2)
--- NOTE | 2018-01-29 10:22 | CONS ---
CONSULTATION DATE OF CONSULTATION: 01/28/2018 CHIEF COMPLAINT: Vertigo. HISTORY OF PRESENT ILLNESS: Mr. Gleason is a pleasant 52-year-old, male, who is being evaluated today on 01/28/2018 by the Neurology Service per the request of Dr. Moore for vertigo. The patient was brought into [facility] Emergency Room after he had a sudden onset of vertigo and nausea. He states that he has had episodes of lightheadedness in the past but does not recall having any vertigo symptoms. His vertigo was exacerbated by movements, especially going to an upward position and improves when he lied down and closed his eyes. He does report occasional headaches over the past couple of weeks, but denies any fevers or head injury. He denies any lateralizing weakness or numbness. In the emergency room, a CT scan of the brain was done which showed no acute intracranial abnormalities. He did have a CT angiogram of the brain and neck, both of which were normal. His CBC and comprehensive metabolic profile were normal. He was given Antivert and admitted for further workup and management. At the time of my evaluation, he is lying in his bed and appears to be in no acute distress. He is slightly drowsy from the Antivert, but denies any vertigo at this time. PAST MEDICAL HISTORY: None. PAST SURGICAL HISTORY: Appendectomy, tonsillectomy, orthopedic surgeries, hernia repair. SOCIAL HISTORY: He denies any tobacco, alcohol or drug use. FAMILY HISTORY: Positive for cancer. HOME MEDICATIONS: Adipex. ALLERGIES: RAGLAN. REVIEW OF SYSTEM: As mentioned above and otherwise negative. PHYSICAL EXAM: Vital signs show a temperature of 98.7, pulse 64, respirations 16, blood pressure 113/57. GENERAL APPEARANCE: The patient is a well-developed male, who appears to be in no acute distress. HEENT: Normocephalic, atraumatic, no facial asymmetry is seen, no nystagmus is noticed on extraocular muscle testing. NECK: Supple with no masses felt. CARDIOVASCULAR: Regular rate and rhythm. ABDOMEN: Nontender. nondistended. Extremities showed no edema or clubbing. NEUROLOGICAL EXAM: The patient is awake and oriented x3. Speech and language are normal. Strength is full in all 4 extremities. Sensory exam was normal to light touch in all 4 extremities. No pronator drift is seen. Imogxi-eoxa-ycpgiy testing showed no dysmetria. No facial asymmetry is noticed on cranial nerve testing. IMPRESSION: Vertigo, resolved. RECOMMENDATION: The patient did have a sudden onset of vertigo with associated nausea. His symptoms have resolved with the meclizine. His CT scan of the brain was reviewed and it showed no acute intracranial abnormalities. His neurological examination was completely normal. An EEG has been ordered. I doubt any neurological etiology for his vertigo. I do recommend an ENT consultation if symptoms recur. The patient was recently started on Adipex to try to lose weight, this may have contributed to his symptoms. He will follow up with Dr. Smith for this. No further inpatient neurological workup is needed other than what is mentioned above. I will continue to follow with you as needed. Thank you for allowing me to participate in the care of your patient. If you have any questions, please feel free to contact me. MERRITT / KYRA: [id number] /
--- NOTE | 2018-01-29 15:19 | CONS ---
CONSULTATION DATE OF SERVICE: 01/29/2018 REASON FOR CONSULTATION: Rule out infection, dizziness. HISTORY OF PRESENT ILLNESS: The patient is a 52-year-old male presenting to the ER at [facility] on 01/27/2018 with chief complaints of worsening dizziness and vertigo. The patient apparently say his symptom has been going on for about a month being noticed by the that patient is getting a little bit more slower, feeling weak and dizzy. Patient denies significant headache. No photophobia. No pain in the ear, some minimal sore throat, but no other URI symptoms. No chest pain, shortness of breath or cough. He also had some lower abdominal pain yesterday, seemed to have resolved. No diarrhea, no burning or frequency of urine. No joint swelling. No rash. With these symptoms, the patient has been evaluated by the ER physician and patient did have a brain CT that did not show any acute changes. CT abdominal, pelvis was negative for any acute abnormality. Patient with no fever during this admission. His white count has been normal. CRP was less than 5. UA has been negative. Infectious Disease was consulted to rule out any infectious etiology and a question of possible encephalitis. The patient has been evaluated by Neurology and currently an MRI of the brain is pending as well as EEG. REVIEW OF SYSTEMS: CONSTITUTIONAL: Positive for weakness but no fever, EYES: No complaint. ENT: No complaint. RESPIRATORY: No complaint. CARDIOVASCULAR: No complaint. GENITOURINARY No complaint: GASTROINTESTINAL: As per HPI. MUSCULOSKELETAL: No complaint. INTEGUMENTARY: No complaint. PSYCHOLOGICAL: No complaint. ENDOCRINE: No complaint. NEUROLOGICAL: As per HPI. PAST MEDICAL HISTORY: Positive for asthma, hyperlipidemia, irritable bowel syndrome. PAST SURGICAL HISTORY: Rotator cuff repair, tonsillectomy, hernia repair, appendectomy and biceps muscle cyst removal. SOCIAL HISTORY: The patient is . 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 Denies smoking, drinking, or any drug use. FAMILY HISTORY: No pertinent findings noticed. ALLERGIES: To METOCLOPRAMIDE. MEDICATIONS: The patient is currently on Tylenol, Lovenox, lactated Ringer's, Narcan and Zofran. PHYSICAL EXAMINATION: Blood pressure is 113/57 with a pulse of 49, temperature 97.7, he is 97% on room air. General description is a middle-aged male, up in the chair in no distress. No tachypnea or accessory muscle for respiration use. HEENT: Shows no pallor or scleral icterus. Oral mucosa is moist. No pharyngeal erythema or thrush. NECK: Trachea central, no thyromegaly. LUNGS: Unlabored breathing, clear to auscultation anteriorly. No wheeze or crackle. HEART: S1, S2. Regular rate and rhythm. ABDOMEN: Soft, no tenderness. No guarding or rigidity. EXTREMITIES: No edema of the feet. SKIN EXAMINATION: No rash or mass palpable. NEUROLOGICAL: Patient is awake, alert, oriented and affect normal. LABS: Hemoglobin is 14.5, white count of 7, BUN of 11, creatinine 1.17. UA has been negative. CRP was less than 5. Amylase, lipase has been normal. no acute abnormality. DIAGNOSTIC IMPRESSION AND PLAN: Patient admitted to the hospital with vertigo, dizziness, questionable central versus peripheral, clinically doubt secondary infectious etiology. The patient currently with no pain in the ear area or any drainage from them. The patient with no fever or elevated white count. CRP is normal. Clinically doubt encephalitis. PLAN: 1. Clinically doubt any of his symptoms related to any infection whether bacterial or viral. 2. Await further workup by Neurology. There is no need for any systemic antibiotic or antibiotic therapy at this point. MMODL / IJN: [id number] /
[2018-01-29 15:24] VITALS: RESP 18
--- NOTE | 2018-01-29 16:06 | MR ---
EXAMINATION TYPE: MR brain wo/w con DATE OF EXAM: 01/29/2018 COMPARISON: Correlation CT 01/27/2018 HISTORY: 52-year-old male with lethargic, Episode of vertigo, slurred speech TECHNIQUE: Multiplanar, multisequence images of the brain and brainstem were acquired before and aft er administration of 9.5 mL IV Gadavist. Diffusion weighted imaging is performed. FINDINGS: No evidence for acute infarction, hemorrhage, mass, mass effect, midline shift, herniation, effacemen t of basal cisterns, or extra-axial fluid collection. The ventricles and sulci are age-appropriate. Major intracranial flow voids are intact. T2/FLAIR weighted sequences show no white matter signal abnormality. Midline structures demonstrate normal morphology. The craniocervical junction is normal. Post contrast images demonstrate no evidence of pathologic enhancement. Dural venous sinuses are pat ent. Trace mucosal thickening anterior ethmoid air cells. Globes are intact. IMPRESSION: No intracranial abnormality seen.
--- NOTE | 2018-01-29 18:55 | EEG ---
ELECTROENCEPHALOGRAM REPORT DATE OF SERVICE: 01/29/2018 REASON FOR TESTING: Vertigo. DESCRIPTION OF THE PROCEDURE: This EEG was performed using a 21-channel digital electroencephalograph, following international 10-20 system. DESCRIPTION OF THE RECORDING: From the beginning of the tracing, and with the patient's eyes closed, the background rhythm was mostly consisting of 9-10 Hz alpha frequency in the posterior occipital lead. No obvious asymmetry is seen. Photic stimulation was performed with a good driving response seen. No pathological waves were elicited. Hyperventilation was not performed. Later in the tracing, the patient does reach stage II of sleep, and occasional sleep spindles are seen. Rare movement artifacts are seen. No epileptiform discharges were seen. His EKG lead showed a regular rate and rhythm. INTERPRETATION: This asleep and awake EEG can be considered within normal limits. There was no asymmetry seen. No epileptiform discharges were noticed. The absence of epileptiform discharges does not rule out the diagnosis of epilepsy; therefore clinical correlation is recommended. MERRITT / CHANON: [id number] /
[2018-01-29] MEDS: ENOXAPARIN 40 MG/0.4 ML SYRINGE SQ SCH (20:20)
[2018-01-30] MEDS: LACTATED RINGERS 1,000 ML IV SCH ×2 (04:55→13:54)
--- NOTE | 2018-01-30 07:44 | PN ---
PROGRESS NOTE DATE OF SERVICE: 01/29/2018 PRESENTING COMPLAINT: Dizziness. INTERVAL HISTORY: This patient is seen by me yesterday on 01/29/2018. The patient had come in with multitude of symptoms feeling tired and run down. The patient's neurological and infectious all workup is coming back negative. The patient seems to have a diagnosis of severe exhaustion and severe sleep deprivation due to his very hectic schedule. Later this evening, patient's EEG also came back negative. REVIEW OF SYSTEMS: Done for constitutional, cardiovascular, GI, pulmonary; relevant findings as above. CURRENT MEDICATIONS: Current medications are reviewed that include IV fluids. PHYSICAL EXAMINATION: On examination, temperature 97.6, pulse 51, respiration 18, blood pressure 119/64, pulse ox 94% on room air. GENERAL APPEARANCE: Lying in bed, comfortable. EYES: Pupils equal. Conjunctivae normal. HENT: External appearance of nose and ears normal. Oral cavity normal. NECK: JVD not raised. Mass not palpable. RESPIRATORY: Effort Lungs are clear. CARDIOVASCULAR: First and second sounds normal. No edema. ABDOMEN: Soft, nontender. Liver and spleen not palpable. PSYCHIATRY: Alert and oriented x3. Mood and affect normal. INVESTIGATIONS: White count normal. Platelets normal. UA negative. EEG unremarkable. Brain MRI unremarkable. CT scan of abdomen and pelvis negative. ASSESSMENT: 1. Acute mental status changes probably from severe exhaustion and sleep deprivation. The patient's neurological and infectious all workup was coming back negative. 2. Intermittent asthma, stable. 3. Hyperlipidemia. 4. Irritable bowel syndrome. PLAN: Will watch the patient overnight. If remains stable, hopefully can be discharged if okay with both Neurology and ID. MMODL / IJN: [id number] /
[2018-01-30 11:35] VITALS: PULSE 87; TEMP 97.4
--- NOTE | 2018-01-30 13:47 | PN ---
PROGRESS NOTE DATE OF SERVICE: 01/30/2018 REASON FOR FOLLOWUP: Vertigo and a question of possible infection. INTERVAL HISTORY: The patient is afebrile. He is feeling better today. No further dizziness or vertigo has been noticed. Denies any headache. No urinary symptoms. No chest pain, shortness of breath, cough. No abdominal pain, no diarrhea. PHYSICAL EXAMINATION: Blood pressure 122/84 with a pulse of 87, temperature 97.4. He is 97% on room air. General description is a middle-aged male, lying in bed in no distress. RESPIRATORY SYSTEM: Unlabored breathing, clear to auscultation anteriorly. HEART: S1, S2. Regular rate and rhythm. ABDOMEN: Soft, no tenderness. EXTREMITIES: No edema of the feet. LABS: No new lab has been obtained today. DIAGNOSTIC IMPRESSION/PLAN: Patient admitted to the hospital with dizziness and vertigo. Clinically doubt any infectious etiology especially bacteria in a patient with no fever, no white count and normal CRP. Patient seemed to have improved with rest and no specific antibiotic or any antiviral. Hence, no need for any antibiotic on discharge. Plan of care discussed with the patient, as well as with the attending physician. MMODL / IJN: [id number] /
--- NOTE | 2018-01-31 22:27 | DS ---
DISCHARGE SUMMARY DATE OF ADMISSION: 01/27/2018 DATE OF DISCHARGE: January 30, 2018. FINAL DIAGNOSES: 1. Acute severe exhaustion/metabolic encephalopathy from severe sleep deprivation and exhaustion. 2. Intermittent asthma, stable. 3. Hyperlipidemia. 4. Irritable bowel syndrome. 5. Altered sleep cycle. HOSPITAL COURSE: This patient presented with weak, tired and exhausted, dizziness, lightheadedness. The patient had an extensive workup done including CT scan of brain was negative. Angio CT brain was negative. CT scan abdomen and pelvis was negative. MRI of the brain was negative. EEG was negative for seizure activity. 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 Barely gets time to sleep. It was felt that patient was completely exhausted and this was resulting in his symptoms. The patient has no fever, no white count. The patient's CRP was negative. UA was negative. After patient slept in the hospital, the patient recovered rather well. The day of discharge, this was discussed at length with the patient and the after the 2nd session did describe how sleep deprivation and exhaustion can affect people's functioning. PHYSICAL EXAMINATION: Temperature 97.4, blood pressure 122/84. LUNGS: Clear. Cardiovascular: 1st and 2nd sounds normal. CONSULTATIONS: Dr. Kiser from Infectious Disease, Dr. Cunningham from Neurology. Discharge, GA planning more than 35 minutes. DISCHARGE MEDICATIONS: Adipex P 37.5 p.o. daily. FOLLOWUP: Follow up with Dr. Armando Smith in [place] on February 05 2018. MMODL / IJN: [id number] /
== END 2018-01-30 14:09 | disposition home or self-care (01) ==
LOC: EC 17:51 → 4MS4W 22:55
PROVIDERS: ADMIT Hospitalist; ATTEND Hospitalist
DX: R53.83 Other fatigue (principal); G93.41 Metabolic encephalopathy; R10.30 Lower abdominal pain, unspecified; Z72.820 Sleep deprivation; R45.1 Restlessness and agitation; Z79.899 Other long term (current) drug therapy; J45.20 Mild intermittent asthma, uncomplicated; K58.9 Irritable bowel syndrome, unspecified; E78.5 Hyperlipidemia, unspecified; Z88.8 Allergy status to other drugs, medicaments and biological substances; Z80.9 Family history of malignant neoplasm, unspecified; T45.0X5A Adverse effect of antiallergic and antiemetic drugs, initial encounter; Z68.33 Body mass index [BMI] 33.0-33.9, adult
CPT/HCPCS: 99285; 96374 ×2; 96361 ×6; 96375 ×5; 96376 ×4; 96372 ×2; 36415; 95819; 93005; 80053 ×2; 82150; 83690; 85025 ×2; 85610; 85730; 86140; 81003; 70496; 70450; 70498; 74177; 70553; G0378 ×4; J2060; J1200; J2765; J3360; J2405 ×2; J1650 ×2; A9581; Q9967 ×2

== ENCOUNTER 2018-07-21 12:06 | Emergency (ER) | payer BC ==
[2018-07-21 12:10] VITALS: RESP 18
[2018-07-21] MEDS ORDERED: ACETAMINOPHEN IV (For NPO) 1,000 MG in EMPTY BAG 1 BAG IVPB STA (12:22)
[2018-07-21] MEDS ORDERED: ONDANSETRON 4 MG/2 ML VIAL IVP STA (12:22)
--- NOTE | 2018-07-21 12:32 | ED ---
General Adult HPI - General Chief complaint: Abdominal Pain Stated complaint: abdominal pain Time Seen by Provider: 07/21/18 12:14 Source: patient, RN notes reviewed Mode of arrival: ambulatory Limitations: no limitations - History of Present Illness Initial comments: Patient 53-year-old male presented to the emergency room today with a chief complaint of abdominal pain over the last few weeks. Patient does admit that he 's been experiencing a cramping type pain in the lower abdomen both right and left side. Patient states that it seems to come and go. He states that he thought he was constipated to go to the bathroom. States had bowel movements sometimes with relief of the symptoms. States pain seems to be getting worse and increasing. Patient's states last bowel movement was 2 days ago. States that today his dog jumped up and hit him on the abdomen which caused him to double over in pain. Patient currently rates pain 6/10. Patient does admit to feeling nauseated with the pain increases. Patient denies any other complaints or symptoms. Patient denies any recent fever, chills, shortness of breath, chest pain, back pain, testicular pain, swelling, numbness or tingling, dysuria or hematuria, headaches or visual changes, or any other complaints. - Related Data Home Medications Medication Instructions Recorded Confirmed No Known Home Medications 07/21/18 07/21/18 Allergies Allergy/AdvReac Type Severity Reaction Status Date / Time metoclopramide [From Reglan] AdvReac Dyspnea Verified 07/21/18 12:35 Review of Systems ROS Statement: Those systems with pertinent positive or pertinent negative responses have been documented in the HPI. ROS Other: All systems not noted in ROS Statement are negative. Past Medical History Past Medical History: Asthma, Hyperlipidemia Additional Past Medical History / Comment(s): IBS History of Any Multi-Drug Resistant Organisms: None Reported Past Surgical History: Adenoidectomy, Hernia Repair, Orthopedic Surgery, Tonsillectomy Additional Past Surgical History / Comment(s): rotator cuff/bicep muscle cyst removed Past Anesthesia/Blood Transfusion Reactions: Previous Problems w/ Anesthesia Additional Past Anesthesia/Blood Transfusion Reaction / Comment(s): slow to wake Past Psychological History: No Psychological Hx Reported Smoking Status: Never smoker Past Alcohol Use History: None Reported Past Drug Use History: None Reported - Past Family History Mother Family Medical History: Cancer General Exam - General Exam Comments Initial Comments: General: The patient is awake and alert, in no distress, and does not appear acutely ill. Eye: No nystagmus. There is normal conjunctiva bilaterally. No signs of icterus. Ears, nose, mouth and throat: There are moist mucous membranes and no oral lesions. Neck: The neck is supple, there is no tenderness or JVD. Cardiovascular: There is a regular rate and rhythm. No murmur, rub or gallop is appreciated. Respiratory: Lungs are clear to auscultation, respirations are non-labored, breath sounds are equal. No wheezes, stridor, rales, or rhonchi. Gastrointestinal: Abdomen soft on palpation. Patient does have tenderness greatest in left lower quadrant. No rebound, guarding or CVA tenderness. Musculoskeletal: Normal ROM, no tenderness. Neurological: A&O x 3. CN II-XII intact, There are no obvious motor or sensory deficits. Coordination appears grossly intact. Speech is normal. Skin: Skin is warm and dry and no rashes or lesions are noted. Psychiatric: Cooperative, appropriate mood & affect, normal judgment. Limitations: no limitations Course Vital Signs 07/21/18 12:07 Temperature 97.7 F Pulse Rate 65 Respiratory 18 Rate Blood Pressure 137/83 O2 Sat by Pulse 99 Oximetry Medical Decision Making - Medical Decision Making Patient's labs been reviewed. No elevated white count. Patient has no fever here in emergency room. His abdomen is soft on palpation. He does admit to cramping type pain is been off and on over the last few weeks. Patient does admit that he was feeling somewhat constipated. Patient CT the abdomen shows no acute changes no acute findings. Discussed appear to be a stable renal cyst. Results were discussed with the patient in detail. Patient will be given reasons citrate here in the emergency room. Is advised to drink a large glass water with this. Advised that he can use stool softener and laxative over -the-counter if symptoms persist. Is advised follow-up with his family doctor over the next 2 days return here to the emergency room for any other concerns. - Lab Data Result diagrams: 07/21/18 13:12 07/21/18 13:12 Lab Results 07/21/18 07/21/18 07/21/18 Range/Units 13:12 13:12 15:00 WBC 10.9 H (3.8-10.6) k/uL RBC 5.52 (4.30-5.90) m/uL Hgb 15.9 (13.0-17.5) gm/dL Hct 48.5 (39.0-53.0) % MCV 87.9 (80.0-100.0) fL MCH 28.8 (25.0-35.0) pg MCHC 32.8 (31.0-37.0) g/dL RDW 13.5 (11.5-15.5) % Plt Count 296 (150-450) k/uL Neutrophils % 64 % Lymphocytes % 27 % Monocytes % 6 % Eosinophils % 2 % Basophils % 1 % Neutrophils # 6.9 (1.3-7.7) k/uL Lymphocytes # 2.9 (1.0-4.8) k/uL Monocytes # 0.6 (0-1.0) k/uL Eosinophils # 0.2 (0-0.7) k/uL Basophils # 0.1 (0-0.2) k/uL Sodium 139 (137-145) mmol/L Potassium 4.5 (3.5-5.1) mmol/L Chloride 105 (98-107) mmol/L Carbon Dioxide 28 (22-30) mmol/L Anion Gap 6 mmol/L BUN 20 (9-20) mg/dL Creatinine 1.08 (0.66-1.25) mg/dL Est GFR (CKD-EPI)AfAm >90 (>60 ml/min/1.73 sqM) Est GFR (CKD-EPI)NonAf 79 (>60 ml/min/1.73 sqM) Glucose 95 (74-99) mg/dL Calcium 9.8 (8.4-10.2) mg/dL Total Bilirubin 0.8 (0.2-1.3) mg/dL AST 34 (17-59) U/L ALT 63 (21-72) U/L Alkaline Phosphatase 53 (38-126) U/L Total Protein 7.2 (6.3-8.2) g/dL Albumin 4.4 (3.5-5.0) g/dL Amylase 34 (30-110) U/L Lipase 59 (23-300) U/L Urine Color Yellow Urine Appearance Clear (Clear) Urine pH 5.5 (5.0-8.0) Ur Specific [place] 1.043 H (1.001-1.035) Urine Protein Negative (Negative) Urine Glucose (UA) Negative (Negative) Urine Ketones Negative (Negative) Urine Blood Negative (Negative) Urine Nitrite Negative (Negative) Urine Bilirubin Negative (Negative) Urine Urobilinogen <2.0 (<2.0) mg/dL Ur Leukocyte Esterase Negative (Negative) Disposition Clinical Impression: Abdominal pain Disposition: HOME SELF-CARE Condition: Good Instructions (If sedation given, give patient instructions): Abdominal Pain (ED ) Additional Instructions: Please use medication as discussed. Please follow-up with family doctor in the next 2 days of symptoms have not improved. Please return to emergency room if the symptoms increase or worsen or for any other concerns. Is patient prescribed a controlled substance at d/c from ED?: No Referrals: Armando Smith MD [Primary Care Provider] - 1-2 days Time of Disposition: 15:22
[2018-07-21 13:45] LABS: Basophils # (A) 0.1 k/uL (0-0.2); Basophils % (A) 1 %; Eosinophils # (A) 0.2 k/uL (0-0.7); Eosinophils % (A) 2 %; HCT 48.5 % (39.0-53.0); HGB 15.9 gm/dL (13.0-17.5); Lymphocytes # (A) 2.9 k/uL (1.0-4.8); Lymphocytes % (A) 27 %; MCH 28.8 pg (25.0-35.0); MCHC 32.8 g/dL (31.0-37.0); MCV 87.9 fL (80.0-100.0); Mean Platelet Volume 7.2; Monocytes # (A) 0.6 k/uL (0-1.0); Monocytes % (A) 6 %; Neutrophils # (A) 6.9 k/uL (1.3-7.7); Neutrophils % (A) 64 %; Platelet Count 296 k/uL (150-450); RBC 5.52 m/uL (4.30-5.90); RDW 13.5 % (11.5-15.5); WBC 10.9 k/uL (3.8-10.6)
[2018-07-21 13:51] LABS: ALT 63 U/L (21-72); AST 34 U/L (17-59); Albumin 4.4 g/dL (3.5-5.0); Alkaline Phosphatase 53 U/L (38-126); Amylase 34 U/L (30-110); Anion Gap 6 mmol/L; Blood Urea Nitrogen 20 mg/dL (9-20); Calcium 9.8 mg/dL (8.4-10.2); Carbon Dioxide 28 mmol/L (22-30); Chloride 105 mmol/L (98-107); Glucose 95 mg/dL (74-99); Lipase 59 U/L (23-300); Potassium 4.5 mmol/L (3.5-5.1); Sodium 139 mmol/L (137-145); Total Bilirubin 0.8 mg/dL (0.2-1.3); Total Protein 7.2 g/dL (6.3-8.2)
--- NOTE | 2018-07-21 14:35 | CT ---
EXAMINATION TYPE: CT abdomen pelvis w con DATE OF EXAM: 07/21/2018 COMPARISON: 04/30/2017 HISTORY: Abdominal pain CT DLP: 1094.3 mGycm Automated exposure control for dose reduction was used. TECHNIQUE: Helical acquisition of images was performed from the lung bases through the pelvis. CONTRAST: Performed without Oral Contrast and with IV Contrast, patient injected with 100 ml mL of Isovue 300. FINDINGS: LUNG BASES: No significant abnormality is appreciated. LIVER/GB: Hepatic parenchyma is diffusely hypoattenuated in comparison to that of the spleen, most co mmonly seen in hepatic steatosis. This finding limits evaluation for hepatic masses. No gross evidenc e of hepatic mass is seen. No intrahepatic biliary ductal dilatation. No cholelithiasis. PANCREAS: No significant abnormality is seen. SPLEEN: No significant abnormality is seen. ADRENALS: No significant abnormality is seen. KIDNEYS: Approximately 1.0 cm left renal lesion although is not compatible with a simple cyst on toda y's examination appears overall unchanged from the prior of 04/30/2017 and therefore may represent a cyst with pseudoenhancement. No hydronephrosis of either kidney. FREE AIR: No free air is visualized. REPRODUCTIVE ORGANS: Heterogenous prostate gland is noted. Finding is nonspecific on CT. URINARY BLADDER: No significant abnormality is seen. ADENOPATHY: No greater than 1 cm short axis lymph node in the abdomen or pelvis. OSSEOUS STRUCTURES: No significant abnormality is seen. BOWEL: Scattered colonic diverticula are noted without pericolonic fat stranding. Moderate amount re tained colonic stool is seen, somewhat limiting evaluation of the bowel. Appendix is within normal li mits of size. No inflammatory fat stranding surrounds bowel focally. Terminal ileum is decompressed. IMPRESSION: 1. NO ACUTE INTRA-ABDOMINAL PROCESS IDENTIFIED. 2. STABLE POSSIBLE LEFT CORTICAL RENAL CYST WITH PSEUDOENHANCEMENT DATING BACK TO 2016, HEPATIC STEAT OSIS, AND COLONIC DIVERTICULOSIS WITHOUT EVIDENCE OF ACUTE DIVERTICULITIS.
[2018-07-21 15:15] LABS: Appearance,Urine Clear (Clear); Bilirubin,Urine Negative (Negative); Blood,Urine Negative (Negative); Color,Urine Yellow; Glucose,Urine (UA) Negative (Negative); Ketones,Urine Negative (Negative); Leukocyte Esterase,Urine Negative (Negative); Nitrite,Urine Negative (Negative); PH, Urine 5.5 (5.0-8.0); Protein,Urine Negative (Negative); Specific Gravity,Urine 1.043 (1.001-1.035); Urobilinogen,Urine <2.0 mg/dL (<2.0)
[2018-07-21] MEDS ORDERED: MAGNESIUM CITRATE 296 ML BOTTLE PO ONE (15:22)
[2018-07-21 15:45] VITALS: BP 128/74; PULSE 56; TEMP 97
== END 2018-07-21 15:37 | disposition home or self-care (01) ==
LOC: EC 12:06
DX: K59.00 Constipation, unspecified (principal); R11.0 Nausea; Z87.19 Personal history of other diseases of the digestive system; Z88.8 Allergy status to other drugs, medicaments and biological substances; W54.1XXA Struck by dog, initial encounter
CPT/HCPCS: 36415; 80053; 82150; 83690; 85025; 81003; 74177; 99284; 96374; 96375; J2405; J0131; Q9967

== ENCOUNTER 2018-11-18 22:04 | Emergency (ER) | payer BC ==
[2018-11-18 22:22] VITALS: RESP 20
[2018-11-18] MEDS ORDERED: MORPHINE SULFATE 4 MG/ML SYRINGE IVP STA (22:34)
[2018-11-18] MEDS ORDERED: DIAZEPAM 5 MG/ML 2 ML INJ IVP STA (22:34)
[2018-11-18 23:01] LABS: Basophils # (A) 0.1 k/uL (0-0.2); Basophils % (A) 1 %; Eosinophils # (A) 0.2 k/uL (0-0.7); Eosinophils % (A) 3 %; HCT 43.2 % (39.0-53.0); HGB 14.6 gm/dL (13.0-17.5); Lymphocytes # (A) 2.9 k/uL (1.0-4.8); Lymphocytes % (A) 34 %; MCH 28.6 pg (25.0-35.0); MCHC 33.9 g/dL (31.0-37.0); MCV 84.3 fL (80.0-100.0); Mean Platelet Volume 7.4; Monocytes # (A) 0.6 k/uL (0-1.0); Monocytes % (A) 7 %; Neutrophils # (A) 4.4 k/uL (1.3-7.7); Neutrophils % (A) 51 %; Platelet Count 296 k/uL (150-450); RBC 5.12 m/uL (4.30-5.90); RDW 13.7 % (11.5-15.5); WBC 8.5 k/uL (3.8-10.6)
[2018-11-18 23:14] LABS: Partial Thromboplastin Time 25.3 sec (22.0-30.0); Prothrombin Time 10.3 sec (9.0-12.0)
[2018-11-18 23:15] LABS: ALT 52 U/L (21-72); AST 36 U/L (17-59); African American GFR (CKD) >90 (>60 ml/min/1.73 sqM); Albumin 4.1 g/dL (3.5-5.0); Alcohol <10 mg/dL; Alkaline Phosphatase 44 U/L (38-126); Anion Gap 6 mmol/L; Blood Urea Nitrogen 21 mg/dL (9-20); Calcium 9.3 mg/dL (8.4-10.2); Carbon Dioxide 25 mmol/L (22-30); Chloride 105 mmol/L (98-107); Glucose 111 mg/dL (74-99); Potassium 3.6 mmol/L (3.5-5.1); Sodium 136 mmol/L (137-145); Total Bilirubin 0.4 mg/dL (0.2-1.3); Total Protein 6.6 g/dL (6.3-8.2)
[2018-11-18 23:16] LABS: D-Dimer <0.17 mg/L FEU (<0.60)
--- NOTE | 2018-11-19 00:03 | XR ---
EXAM: XR Right Ribs and AP Chest, 3 or More Views CLINICAL HISTORY: ITS.REASON XR Reason: Pain TECHNIQUE: Frontal and oblique views of the right ribs and frontal view of the chest. COMPARISON: Chest radiograph on 08/18/2017 FINDINGS: Hardware: None. Lungs/pleura: Normal. No focal consolidation. No pleural effusion or pneumothorax. Heart/mediastinum: Normal. No cardiomegaly. Soft tissues: Unremarkable. Bones: No displaced fracture. Upper abdomen: Normal. IMPRESSION: 1. No acute cardiopulmonary abnormality identified. 2. No displaced fracture identified.
--- NOTE | 2018-11-19 00:07 | ED ---
General Adult HPI - General Chief complaint: Back Pain/Injury Stated complaint: right side pain Time Seen by Provider: 11/18/18 22:25 Source: patient, family, RN notes reviewed, old records reviewed Mode of arrival: ambulatory Limitations: no limitations - History of Present Illness Initial comments: 53-year-old male with right-sided posterior rib pain which has been present throughout the day today. Patient was wrestling with his son this morning, he had pain in his back predominantly right upper back. He went to sleep, and when he awoke he had worsening right upper back pain. He states the pain is worse with deep inspiration. Worse with movement. He did go to a chiropractor this afternoon with minimal improvement in his symptoms. Denies central chest pain. Denies abdominal pain nausea vomiting. Denies any lower extremity pain or numb ness. - Related Data Previous Rx's Medication Instructions Recorded Ibuprofen [Motrin] 600 mg PO Q8HR PRN #24 tab 11/19/18 Allergies Allergy/AdvReac Type Severity Reaction Status Date / Time metoclopramide [From Reglan] AdvReac Dyspnea Verified 11/18/18 22:39 Review of Systems ROS Statement: Those systems with pertinent positive or pertinent negative responses have been documented in the HPI. ROS Other: All systems not noted in ROS Statement are negative. Past Medical History Past Medical History: Asthma, Hyperlipidemia Additional Past Medical History / Comment(s): IBS History of Any Multi-Drug Resistant Organisms: None Reported Past Surgical History: Adenoidectomy, Hernia Repair, Orthopedic Surgery, Tonsillectomy Additional Past Surgical History / Comment(s): rotator cuff/bicep muscle cyst removed Past Anesthesia/Blood Transfusion Reactions: Previous Problems w/ Anesthesia Additional Past Anesthesia/Blood Transfusion Reaction / Comment(s): slow to wake Past Psychological History: No Psychological Hx Reported Smoking Status: Never smoker Past Alcohol Use History: None Reported Past Drug Use History: None Reported - Past Family History Mother Family Medical History: Cancer General Exam Limitations: no limitations General appearance: alert, in no apparent distress Head exam: Present: atraumatic, normocephalic Eye exam: Present: normal appearance, PERRL ENT exam: Present: normal exam Neck exam: Present: normal inspection. Absent: tenderness, meningismus Respiratory exam: Present: normal lung sounds bilaterally, accessory muscle use (Posterior right chest wall tenderness). Absent: respiratory distress, wheezes Cardiovascular Exam: Present: regular rate, normal rhythm GI/Abdominal exam: Present: soft. Absent: distended, tenderness, guarding Extremities exam: Present: normal inspection, normal capillary refill, other (Pedal pulses 2+). Absent: pedal edema, calf tenderness Back exam: Present: normal inspection, full ROM, paraspinal tenderness. Absent: vertebral tenderness Neurological exam: Present: alert, oriented X3, CN II-XII intact. Absent: motor sensory deficit Psychiatric exam: Present: normal affect, normal mood Skin exam: Present: warm, dry, intact. Absent: cyanosis, diaphoretic Course Vital Signs 11/18/18 11/19/18 22:17 00:21 Temperature 97.6 F Pulse Rate 62 56 L Respiratory 20 20 Rate Blood Pressure 147/88 128/73 O2 Sat by Pulse 98 98 Oximetry Medical Decision Making - Medical Decision Making 53-year-old male with right-sided posterior rib pain after wrestling with his son. No external signs of trauma. Patient has normal vitals, bilateral breath sounds. He is tenderness over the right posterior rib cage. X-rays obtained, negative for displaced fracture, no pneumothorax, no acute cardiopulmonary process. Patient has normal CBC, normal CMP, negative troponin, negative d- dimer. He is feeling better after Toradol, morphine, Valium. He will rest, he will follow-up with his primary care physician. He is given anti-inflammatories. - Lab Data Result diagrams: 11/18/18 22:47 11/18/18 22:47 Lab Results 11/18/18 11/18/18 11/18/18 Range/Units 22:47 22:47 22:47 WBC 8.5 (3.8-10.6) k/uL RBC 5.12 (4.30-5.90) m/uL Hgb 14.6 (13.0-17.5) gm/dL Hct 43.2 (39.0-53.0) % MCV 84.3 (80.0-100.0) fL MCH 28.6 (25.0-35.0) pg MCHC 33.9 (31.0-37.0) g/dL RDW 13.7 (11.5-15.5) % Plt Count 296 (150-450) k/uL Neutrophils % 51 % Lymphocytes % 34 % Monocytes % 7 % Eosinophils % 3 % Basophils % 1 % Neutrophils # 4.4 (1.3-7.7) k/uL Lymphocytes # 2.9 (1.0-4.8) k/uL Monocytes # 0.6 (0-1.0) k/uL Eosinophils # 0.2 (0-0.7) k/uL Basophils # 0.1 (0-0.2) k/uL PT 10.3 (9.0-12.0) sec INR 1.0 (<1.2) APTT 25.3 (22.0-30.0) sec D-Dimer <0.17 (<0.60) mg/L FEU Sodium 136 L (137-145) mmol/L Potassium 3.6 (3.5-5.1) mmol/L Chloride 105 (98-107) mmol/L Carbon Dioxide 25 (22-30) mmol/L Anion Gap 6 mmol/L BUN 21 H (9-20) mg/dL Creatinine 0.90 (0.66-1.25) mg/dL Est GFR (CKD-EPI)AfAm >90 (>60 ml/min/1.73 sqM) Est GFR (CKD-EPI)NonAf >90 (>60 ml/min/1.73 sqM) Glucose 111 H (74-99) mg/dL Calcium 9.3 (8.4-10.2) mg/dL Total Bilirubin 0.4 (0.2-1.3) mg/dL AST 36 (17-59) U/L ALT 52 (21-72) U/L Alkaline Phosphatase 44 (38-126) U/L Troponin I (0.000-0.034) ng/mL Total Protein 6.6 (6.3-8.2) g/dL Albumin 4.1 (3.5-5.0) g/dL Serum Alcohol <10 mg/dL 11/18/18 Range/Units 22:47 WBC (3.8-10.6) k/uL RBC (4.30-5.90) m/uL Hgb (13.0-17.5) gm/dL Hct (39.0-53.0) % MCV (80.0-100.0) fL MCH (25.0-35.0) pg MCHC (31.0-37.0) g/dL RDW (11.5-15.5) % Plt Count (150-450) k/uL Neutrophils % % Lymphocytes % % Monocytes % % Eosinophils % % Basophils % % Neutrophils # (1.3-7.7) k/uL Lymphocytes # (1.0-4.8) k/uL Monocytes # (0-1.0) k/uL Eosinophils # (0-0.7) k/uL Basophils # (0-0.2) k/uL PT (9.0-12.0) sec INR (<1.2) APTT (22.0-30.0) sec D-Dimer (<0.60) mg/L FEU Sodium (137-145) mmol/L Potassium (3.5-5.1) mmol/L Chloride (98-107) mmol/L Carbon Dioxide (22-30) mmol/L Anion Gap mmol/L BUN (9-20) mg/dL Creatinine (0.66-1.25) mg/dL Est GFR (CKD-EPI)AfAm (>60 ml/min/1.73 sqM) Est GFR (CKD-EPI)NonAf (>60 ml/min/1.73 sqM) Glucose (74-99) mg/dL Calcium (8.4-10.2) mg/dL Total Bilirubin (0.2-1.3) mg/dL AST (17-59) U/L ALT (21-72) U/L Alkaline Phosphatase (38-126) U/L Troponin I <0.012 (0.000-0.034) ng/mL Total Protein (6.3-8.2) g/dL Albumin (3.5-5.0) g/dL Serum Alcohol mg/dL Disposition Clinical Impression: Mechanical back pain, Chest wall contusion Disposition: ADMITTED IP TO THIS [facility] Condition: Stable Instructions (If sedation given, give patient instructions): Rib Contusion (ED) Prescriptions: Ibuprofen [Motrin] 600 mg PO Q8HR PRN #24 tab PRN Reason: Pain Is patient prescribed a controlled substance at d/c from ED?: No Referrals: Kaila Engle DO [Primary Care Provider] - 1-2 days Time of Disposition: 00:18
[2018-11-19] MEDS ORDERED: KETOROLAC 30 MG/ML 1 ML VIAL IVP STA (00:12)
[2018-11-19 00:22] VITALS: BP 128/73; PULSE 56
[2018-11-19 00:47] VITALS: TEMP 97.7
== END 2018-11-19 00:46 | disposition other institution (70) ==
LOC: EC 22:04
DX: S20.211A Contusion of right front wall of thorax, initial encounter (principal); Z88.8 Allergy status to other drugs, medicaments and biological substances; X58.XXXA Exposure to other specified factors, initial encounter; Y93.72 Activity, wrestling
CPT/HCPCS: 99285; 96374; 96375 ×2; 36415; 85379; 80053; 84484; 85025; 85610; 85730; 80320; 71101; J2270; J3360; J1885

== ENCOUNTER → 2019-02-02 | Outpatient (CLI) | payer BC ==
--- NOTE | 2019-02-02 23:27 | CONS ---
CONSULTATION REASON FOR CONSULTATION: This is a consultation note for sleep apnea and hypersomnia. HISTORY OF PRESENT ILLNESS: 53-year-old male patient who is coming to see me again for issues related to hypersomnia and sleepiness. I evaluated this patient many years back. Specifically he was seen in my office here in January of 2011. At that time, the patient was referred to me for a 2nd opinion regarding his obstructive sleep apnea. Apparently his earlier sleep evaluation was done at [facility]. He was diagnosed having severe LEIGH and was treated with CPAP at a pressure of 6 cm of water. Unfortunately he did not see any significant improvement. He remained uncomfortable feeling sleepy even while being on the CPAP. He ultimately was given Nuvigil by his primary care physician Dr. Primo Guerrero. His sleep pattern indicated that the patient was having insufficient sleep syndrome. At the same time, no reported history of any parasomnias. No sleep paralysis. No hallucinations. No cataplexy. Back then, he used to weigh around 195 pounds. I repeat this patient's polysomnogram here at the [facility]. The patient was found to have mild LEIGH with an AHI of 5.2, he had moderate to severe periodic limb movements which was causing significant sleep fragmentation arousals. Based on this, I recommended to stop CPAP therapy at that point, and extend sleep hours to an average of 7 half to 8 hours of sleep per night. I also asked him to undergo a workup for restless legs syndrome. Periodic limb movements. Check iron levels and start on Mirapex. None of these interventions were done. Over the years, the patient gained significant amount of weight and currently is up to 220 pounds. 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 He is having significant tiredness and sleepiness during the day. He is arriving home early in the morning. At around 7 o'clock. He goes to bed around 8 o'clock, and he gets out of bed somewhere between 1 and 2 pm. BMP remains tired and sleepy during the day. He may take another nap prior to going to work again. His Raymond score is currently at 19. Along with the weight gain, is stopping breathing he quits he snores and he has a witnessed apneas as reported by his and he continues to have restlessness in lower extremities bilaterally. No history of smoking. No history of alcoholism. No history of substance abuse. No head trauma. No other new complaints otherwise for now. PAST MEDICAL HISTORY: 1. Obstructive sleep apnea. 2. Excessive periodic limb movements. 3. Insufficient sleep syndrome. 4. Degenerative arthritis. PAST SURGICAL HISTORY: Includes hernia repair x3. Tonsillectomy the lobectomy and sore shoulder surgery. DRUG ALLERGIES: Not known. MEDICATIONS ARE: Ibuprofen on a p.r.n. basis. [place] for p.r.n. basis. SOCIAL HISTORY: Nonsmoker no alcohol. No history of IV drugs. FAMILY HISTORY: Family history is negative for sleep apnea. Positive for heart disease and hypertension and CVA. REVIEW OF SYSTEMS: Fourteen-point review of system was done. 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 He has not fallen asleep while driving his car. He should drive short distances. He is not cause any ladders at work. He does not fall asleep at his work environment. No history of grinding of the teeth. No sleepwalking. No anxiety or panic attacks. No palpitations. No heartburn. No chest pain. No shortness of breath. Most of the positive findings was mentioned above in 14-point review of system was done. No history of any depression at this point in time. PHYSICAL EXAMINATION: BP is 133/72, pulse 68, respirations 16, temperature 97.9, saturation 96% on room air. Weight is 220, height is 5 feet 5 inches and BMI 36.6. Neck size 17 0.5 inches. General appearance: Calm and comfortable. HEENT: Head is atraumatic, normocephalic. NECK: Supple. There is no JVD. No goiter or neck masses. Mallampati class IV. LUNGS: Clear to auscultation. HEART: Sounds are regular rate and rhythm. Normal S1, S2. No S3. No murmurs. ABDOMEN: Soft, nontender. No organomegaly. EXTREMITIES: No edema. No cyanosis or clubbing. NEUROLOGICALLY: He is alert x3. There are no focal neurological deficits. PSYCHIATRIC: Negative for anxiety or depression. IMPRESSION: 1. Chronic hypersomnia multifactorial. Based on the previous sleep study, the patient had an insufficient sleep syndrome in addition to excessive periodic limb movements with sleep fragmentation rated to PLMS. The sleep apnea component was mild. Never the less, over the past 7 years, the patient has gained significant amount of weight in the order of 25 pounds. 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 A home sleep study was done on outpatient basis. He was told to have significant amount of sleep apnea and the results are not available to me at this point. He was given an APAP and yet again he is felt to show compliancy and the machine was returned back. The patient is coming in for further advice. 2. Insufficient sleep syndrome. 3. Periodic limb movement possible component of restless legs syndrome. 4. Chronic hypersomnia Raymond score of 19. 5. Loud snoring. 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 PLAN: 1. I am going to extend his sleep hours to an average of 7 half to 8 hours per night per morning if possible. 2. Light breakfast in the internal audit manager hours. 3. Coming to bed early and avoiding light exposure in the more internal audit manager hours to promote sleep. 4. Weight loss. 5. Do a CPAP titration on this patient and this will be a good opportunity to evaluate extent of sleep fragmentation while on CPAP. 6. We will also re-evaluate the severity of his periodic limb movements. 7. Implement good sleep hygiene measures. 8. We will continue to follow the patient. 9. We will see him back after he undergoes his CPAP titration. I am going to retrieve his home sleep study that was done through an outside sleep center also. MERRITT / KYRA: [id number] /
== END ==
LOC: SLEEP 15:31
PROVIDERS: ATTEND Internal Medicine Critical Care Medicine
DX: G47.10 Hypersomnia, unspecified (principal); G47.61 Periodic limb movement disorder
CPT/HCPCS: 99211

== ENCOUNTER 2019-02-08 06:50 | Day surgery (SDC) | payer BC ==
[2019-02-05 08:58] VITALS: BMI 35.3
[~2019-02-08 06:50] MED LIST changes: +DEXAMETHASONE SOD PHOSPHATE 10 MG/ML 1 ML VIAL IV ONE; +HEPARIN SODIUM,PORCINE 5,000 UNIT/ML 1 ML VIAL SQ ONE; -LACTATED RINGERS 1,000 ML IV ONE; -LACTATED RINGERS 1,000 ML IV SCH; -LIDOCAINE 1% 20 ML VIAL (10MG/ML) FOR IV START INTRADERMA PRN; -LIDOCAINE 1% INJ 10MG/ML (20 ML MDV) ONE; +MIDAZOLAM 2 MG/2 ML VIAL IV PRN; +ONDANSETRON 4 MG/2 ML VIAL IVP ONE; -PROPOFOL 10 MG/ML 20 ML VIAL IV ONE; +SCOPOLAMINE 1.5MG/72HR PATCH TRANSDERM ONE
[2019-02-08] MEDS: LACTATED RINGERS 1,000 ML IV SCH ×2 (07:13→10:45)
[2019-02-08] MEDS ORDERED: BUPIVACAIN-EPI 0.25%-1:200,000 30 ML VIAL SQ ONE ×2 (07:37→08:22)
[2019-02-08] MEDS ORDERED: HYDROmorphone (PF) 1 MG/ML ONE (07:56)
[2019-02-08] MEDS ORDERED: SUCCINYLCHOLINE CHLORIDE 100 MG/5 ML SYR IV ONE (07:56)
[2019-02-08] MEDS ORDERED: NEOSTIGMINE 1 MG/ML 10 ML VIAL ONE (07:56)
[2019-02-08] MEDS ORDERED: GLYCOPYRROLATE 0.2 MG/ML 2 ML VIAL ONE (07:56)
[2019-02-08] MEDS ORDERED: PROPOFOL 10 MG/ML 20 ML VIAL IV ONE (07:56)
[2019-02-08] MEDS ORDERED: ROCURONIUM BROMIDE 10 MG/ML 10 ML VIAL IV ONE (07:56)
[2019-02-08] MEDS ORDERED: fentaNYL (PF) 50 MCG/ML 2 ML AMP ONE (07:56)
[2019-02-08] MEDS ORDERED: MIDAZOLAM 2 MG/2 ML VIAL ONE (07:56)
[2019-02-08] MEDS ORDERED: LIDOCAINE 1% INJ 10MG/ML (20 ML MDV) ONE (07:56)
[2019-02-08] MEDS ORDERED: KETOROLAC 30 MG/ML 1 ML VIAL ONE (07:56)
--- NOTE | 2019-02-08 08:06 | P.GSHP ---
History of Present Illness H&P Date: 02/08/19 Chief Complaint: Right quadrant pain This a 53-year-old male who's had issues were quadrant pain. Patient's found have gallstones on ultrasound. He presents today for laparoscopic cholecystectomy. Past Medical History Past Medical History: Hyperlipidemia Additional Past Medical History / Comment(s): asthma (child), RLS, back pain - sees chiropractor, cysts on kidneys., states he will be retested for sleep apnea., abdominal pain History of Any Multi-Drug Resistant Organisms: None Reported Past Surgical History: Adenoidectomy, Hernia Repair, Orthopedic Surgery, Tonsillectomy Additional Past Surgical History / Comment(s): rotator cuff/bicep muscle cyst removed Past Anesthesia/Blood Transfusion Reactions: Previous Problems w/ Anesthesia Additional Past Anesthesia/Blood Transfusion Reaction / Comment(s): slow to wake Past Psychological History: No Psychological Hx Reported Smoking Status: Never smoker Past Alcohol Use History: Rare Past Drug Use History: None Reported - Past Family History Mother Family Medical History: Cancer Medications and Allergies Home Medications Medication Instructions Recorded Confirmed Type Ibuprofen [Motrin] 600 mg PO Q8HR PRN #24 tab 11/19/18 02/05/19 Rx HYDROcodone/APAP 5-325MG [[place] 1 tab PO Q6HR PRN 02/05/19 02/08/19 History 5-325] Harrison-3 Fatty Acids/Fish Oil [Fish 1 each PO DAILY 02/05/19 02/05/19 History Oil 1,000 mg Softgel] Allergies Allergy/AdvReac Type Severity Reaction Status Date / Time metoclopramide [From Reglan] AdvReac Dyspnea Verified 02/08/19 07:01 Surgical - Exam Vital Signs Temp Pulse Resp BP Pulse Ox 97.3 F L 58 L 16 152/96 97 02/08/19 07:03 02/08/19 07:03 02/08/19 07:03 02/08/19 07:03 02/08/19 07:03 - General well developed, well nourished, no distress - Eyes PERRL - ENT normal pinna - Neck no masses - Respiratory normal expansion - Cardiovascular Rhythm: regular - Abdomen Abdomen: soft, non tender Assessment and Plan Assessment: Cholecystitis Cholelithiasis We'll perform laparoscopic cholecystectomy.
[2019-02-08 09:01] VITALS: TEMP 97
--- NOTE | 2019-02-08 09:04 | P.OP ---
Date of Procedure: 02/08/19 Preoperative Diagnosis: Cholecystitis Postoperative Diagnosis: Cholecystitis Adhesions Procedure(s) Performed: Laparoscopic cholecystectomy Laparoscopic lysis of adhesions Anesthesia: DAMARI Surgeon: Max German Estimated Blood Loss (ml): 5 Pathology: other (Gallbladder) Condition: stable Disposition: PACU Description of Procedure: The patient was placed on the operating table. The patient received a general endotracheal tube anesthesia. The patients abdomen was prepped and draped in the usual sterile fashion. Through an infraumbilical stab incision, the fascia of the anterior abdominal wall was grasped with a pair of Kochers and then the Veress needle was placed in the peritoneal cavity. Position of the Veress needle was confirmed with positive drop test. The abdomen was then insufflated. After adequate insufflation, the 10 mm trocar was placed in the peritoneal cavity. Following this the laparoscope was placed in the peritoneal cavity. The patient was placed in the head-up, right side up position and then a 5 mm trocar was placed in the right lateral and right subcostal position under direct visualization. A 8 mm trocar was placed in the epigastric position. The patient had a significant amount of adhesions related to previous umbilical hernia repair at the umbilicus. Using the Harmonic scissors the adhesions were lysed. Care was taken to identify and preserve the bowel wall. The gallbladder was grasped in the fundus and infundibulum. Traction on the gallbladder was placed in the lateral and the cephalad positions. The triangle of Calot was visualized.. The cystic duct was bluntly dissected until the union of the cystic duct and common bile duct was seen. A critical view of safety was achieved. The cystic duct was then divided and sealed with the Harmonic scissors. A PDS Endoloop was then placed throughout the cystic duct stump. The cystic artery divided and sealed with the Harmonic scissors. The gallbladder was then removed from the liver bed using Harmonic scissors. The gallbladder was then extracted through the epigastric port site. Operative field was checked for any bleeding spots and Harmonic scissors was used to coagulate the liver bed. The abdomen was irrigated. The trocars were removed. The skin was closed using interrupted 3-0 Vicryl suture. Dermabond dressing were applied. The patient tolerated the procedure well.
[2019-02-08] MEDS: HYDROmorphone 0.5 MG/0.5 ML SYRINGE IVP PRN ×2 (09:31→09:52)
[2019-02-08] MEDS ORDERED: MEPERIDINE 50 MG/ML SYRINGE IVP ONE (10:01)
[2019-02-08] MEDS ORDERED: HYDROcodone/APAP 5-325MG 1 EACH TAB PO ONE (11:13)
[2019-02-08 14:00] VITALS: RESP 18
[2019-02-08 14:45] VITALS: BP 106/65; PULSE 65
[2019-02-08] MEDS ORDERED: IBUPROFEN 200 MG TAB PO ONE (15:00)
== END 2019-02-08 15:35 | disposition home or self-care (01) ==
LOC: OR 06:50
PROVIDERS: ATTEND Surgery
DX: K80.10 Calculus of gallbladder with chronic cholecystitis without obstruction (principal); K66.0 Peritoneal adhesions (postprocedural) (postinfection); E78.5 Hyperlipidemia, unspecified; J45.909 Unspecified asthma, uncomplicated; G25.81 Restless legs syndrome; G47.30 Sleep apnea, unspecified; G89.29 Other chronic pain; M54.9 Dorsalgia, unspecified; Z87.448 Personal history of other diseases of urinary system; Z90.89 Acquired absence of other organs; Z87.19 Personal history of other diseases of the digestive system; Z98.890 Other specified postprocedural states; Z80.9 Family history of malignant neoplasm, unspecified; Z88.8 Allergy status to other drugs, medicaments and biological substances; Z79.899 Other long term (current) drug therapy; Z79.1 Long term (current) use of non-steroidal anti-inflammatories (NSAID); Z79.891 Long term (current) use of opiate analgesic
CPT/HCPCS: 88304; 47562; J2250; J1644; J1100; J2710; J2175; J0690; J2405; J2001; J3010; J1885; J1170 ×2; J0330; J2704

== ENCOUNTER 2019-02-21 11:14 | Emergency (ER) | payer BC ==
[2019-02-21 11:33] VITALS: RESP 16; TEMP 97.6
[2019-02-21] MEDS ORDERED: SODIUM CHLORIDE 0.9% 2,000 ML IV STA (11:53)
[2019-02-21] MEDS ORDERED: KETOROLAC 30 MG/ML 1 ML VIAL IVP STA (11:53)
[2019-02-21] MEDS ORDERED: SIMETHICONE 80 MG CHEWABLE PO STA (11:54)
[2019-02-21] MEDS ORDERED: ONDANSETRON 4 MG/2 ML VIAL IVP STA (11:54)
[2019-02-21 12:30] LABS: Basophils # (A) 0.1 k/uL (0-0.2); Basophils % (A) 1 %; Eosinophils # (A) 0.2 k/uL (0-0.7); Eosinophils % (A) 3 %; HCT 42.6 % (39.0-53.0); HGB 14.4 gm/dL (13.0-17.5); Lymphocytes # (A) 2.3 k/uL (1.0-4.8); Lymphocytes % (A) 32 %; MCH 28.6 pg (25.0-35.0); MCHC 33.9 g/dL (31.0-37.0); MCV 84.3 fL (80.0-100.0); Mean Platelet Volume 7.1; Monocytes # (A) 0.4 k/uL (0-1.0); Monocytes % (A) 6 %; Neutrophils # (A) 3.9 k/uL (1.3-7.7); Neutrophils % (A) 54 %; Platelet Count 285 k/uL (150-450); RBC 5.05 m/uL (4.30-5.90); RDW 13.2 % (11.5-15.5); WBC 7.1 k/uL (3.8-10.6)
[2019-02-21 12:38] LABS: ALT 43 U/L (21-72); AST 30 U/L (17-59); African American GFR (CKD) >90 (>60 ml/min/1.73 sqM); Albumin 4.2 g/dL (3.5-5.0); Alkaline Phosphatase 44 U/L (38-126); Anion Gap 8 mmol/L; Blood Urea Nitrogen 17 mg/dL (9-20); Calcium 9.5 mg/dL (8.4-10.2); Carbon Dioxide 26 mmol/L (22-30); Chloride 105 mmol/L (98-107); Glucose 89 mg/dL (74-99); Potassium 4.4 mmol/L (3.5-5.1); Sodium 139 mmol/L (137-145); Total Bilirubin 0.5 mg/dL (0.2-1.3); Total Protein 6.8 g/dL (6.3-8.2)
--- NOTE | 2019-02-21 12:48 | XR ---
EXAMINATION TYPE: XR KUB , 2 VIEWS DATE OF EXAM ORDERED: 02/21/2019 HISTORY: abdominal pain. COMPARISON: None. FINDINGS: The lung bases are clear. Within the abdomen, the abdominal gas pattern is normal. There is no evidence of obstruction or free air. There are phleboliths within the pelvis. IMPRESSION: NO ACUTE INTRA-ABDOMINAL ABNORMALITY.
--- NOTE | 2019-02-21 12:57 | ED ---
Abdominal Pain HPI - General Chief Complaint: Abdominal Pain Stated Complaint: Nausea, abd pain-Post op Time Seen by Provider: 02/21/19 11:41 Source: patient, RN notes reviewed Mode of arrival: ambulatory Limitations: no limitations - History of Present Illness Initial Comments: This a 53-year-old male presents emergency Department chief complaint persistent abdominal pain. Patient states that he status post cholecystectomy by Dr. German 13 days ago. Patient states that he has followed up several times for this and advised to increase going to normal healing process. Patient has no localized pain. He states he just feels gassy. Patient states his reading of intermittent 30 may have some complication. He reports no noted fevers he states he had some chills earlier today. Denies any current chest pain or shortness breath. He has no change in bowel habits states she's having daily TIME. Denies any melena or hematochezia no dysuria no hematuria. Patient states she just feels very gassy, distended. - Related Data Home Medications Medication Instructions Recorded Confirmed HYDROcodone/APAP 5-325MG [[place] 1 tab PO Q6HR PRN 02/05/19 02/21/19 5-325] Previous Rx's Medication Instructions Recorded Ibuprofen [Motrin] 600 mg PO Q8HR PRN #24 tab 11/19/18 Allergies Allergy/AdvReac Type Severity Reaction Status Date / Time metoclopramide [From Reglan] AdvReac Dyspnea Verified 02/21/19 11:58 Review of Systems ROS Statement: Those systems with pertinent positive or pertinent negative responses have been documented in the HPI. ROS Other: All systems not noted in ROS Statement are negative. Past Medical History Past Medical History: Hyperlipidemia Additional Past Medical History / Comment(s): asthma (child), RLS, back pain - sees chiropractor, cysts on kidneys., states he will be retested for sleep apnea., abdominal pain History of Any Multi-Drug Resistant Organisms: None Reported Past Surgical History: Adenoidectomy, Cholecystectomy, Hernia Repair, Orthopedic Surgery, Tonsillectomy Additional Past Surgical History / Comment(s): rotator cuff/bicep muscle cyst removed Past Anesthesia/Blood Transfusion Reactions: Previous Problems w/ Anesthesia Additional Past Anesthesia/Blood Transfusion Reaction / Comment(s): slow to wake Past Psychological History: No Psychological Hx Reported Smoking Status: Never smoker Past Alcohol Use History: Rare Past Drug Use History: None Reported - Past Family History Mother Family Medical History: Cancer General Exam Limitations: no limitations General appearance: alert, in no apparent distress Head exam: Present: atraumatic, normocephalic, normal inspection Eye exam: Present: normal appearance, PERRL, EOMI. Absent: scleral icterus, conjunctival injection, periorbital swelling ENT exam: Present: normal exam, normal oropharynx, mucous membranes moist Neck exam: Present: normal inspection, full ROM. Absent: tenderness, meningismus, lymphadenopathy Respiratory exam: Present: normal lung sounds bilaterally. Absent: respiratory distress, wheezes, rales, rhonchi, stridor Cardiovascular Exam: Present: regular rate, normal rhythm, normal heart sounds. Absent: systolic murmur, diastolic murmur, rubs, gallop, clicks GI/Abdominal exam: Present: soft, tenderness (Minimal diffuse), normal bowel sounds. Absent: distended, guarding, rebound, rigid Back exam: Absent: CVA tenderness (R), CVA tenderness (L) Neurological exam: Present: alert Skin exam: Present: warm, dry, intact, normal color. Absent: rash Course Vital Signs 02/21/19 11:30 Temperature 97.6 F Pulse Rate 88 Respiratory 16 Rate Blood Pressure 134/90 O2 Sat by Pulse 97 Oximetry Medical Decision Making - Medical Decision Making 53-year-old presented for abdominal discomfort gas issues after postcholecystectomy. Patient's labs unremarkable x-ray unremarkable. Patient discharged advised follow-up with surgeon. Return parameters were discussed. - Lab Data Result diagrams: 02/21/19 12:19 02/21/19 12:19 Lab Results 02/21/19 02/21/19 02/21/19 Range/Units 12:19 12:19 12:19 WBC 7.1 (3.8-10.6) k/uL RBC 5.05 (4.30-5.90) m/uL Hgb 14.4 (13.0-17.5) gm/dL Hct 42.6 (39.0-53.0) % MCV 84.3 (80.0-100.0) fL MCH 28.6 (25.0-35.0) pg MCHC 33.9 (31.0-37.0) g/dL RDW 13.2 (11.5-15.5) % Plt Count 285 (150-450) k/uL Neutrophils % 54 % Lymphocytes % 32 % Monocytes % 6 % Eosinophils % 3 % Basophils % 1 % Neutrophils # 3.9 (1.3-7.7) k/uL Lymphocytes # 2.3 (1.0-4.8) k/uL Monocytes # 0.4 (0-1.0) k/uL Eosinophils # 0.2 (0-0.7) k/uL Basophils # 0.1 (0-0.2) k/uL Sodium 139 (137-145) mmol/L Potassium 4.4 (3.5-5.1) mmol/L Chloride 105 (98-107) mmol/L Carbon Dioxide 26 (22-30) mmol/L Anion Gap 8 mmol/L BUN 17 (9-20) mg/dL Creatinine 0.94 (0.66-1.25) mg/dL Est GFR (CKD-EPI)AfAm >90 (>60 ml/min/1.73 sqM) Est GFR (CKD-EPI)NonAf >90 (>60 ml/min/1.73 sqM) Glucose 89 (74-99) mg/dL Plasma Lactic Acid J Luis 1.6 (0.7-2.0) mmol/L Calcium 9.5 (8.4-10.2) mg/dL Total Bilirubin 0.5 (0.2-1.3) mg/dL AST 30 (17-59) U/L ALT 43 (21-72) U/L Alkaline Phosphatase 44 (38-126) U/L Total Protein 6.8 (6.3-8.2) g/dL Albumin 4.2 (3.5-5.0) g/dL Lipase 43 (23-300) U/L Urine Color Urine Appearance (Clear) Urine pH (5.0-8.0) Ur Specific [place] (1.001-1.035) Urine Protein (Negative) Urine Glucose (UA) (Negative) Urine Ketones (Negative) Urine Blood (Negative) Urine Nitrite (Negative) Urine Bilirubin (Negative) Urine Urobilinogen (<2.0) mg/dL Ur Leukocyte Esterase (Negative) 02/21/19 Range/Units 13:30 WBC (3.8-10.6) k/uL RBC (4.30-5.90) m/uL Hgb (13.0-17.5) gm/dL Hct (39.0-53.0) % MCV (80.0-100.0) fL MCH (25.0-35.0) pg MCHC (31.0-37.0) g/dL RDW (11.5-15.5) % Plt Count (150-450) k/uL Neutrophils % % Lymphocytes % % Monocytes % % Eosinophils % % Basophils % % Neutrophils # (1.3-7.7) k/uL Lymphocytes # (1.0-4.8) k/uL Monocytes # (0-1.0) k/uL Eosinophils # (0-0.7) k/uL Basophils # (0-0.2) k/uL Sodium (137-145) mmol/L Potassium (3.5-5.1) mmol/L Chloride (98-107) mmol/L Carbon Dioxide (22-30) mmol/L Anion Gap mmol/L BUN (9-20) mg/dL Creatinine (0.66-1.25) mg/dL Est GFR (CKD-EPI)AfAm (>60 ml/min/1.73 sqM) Est GFR (CKD-EPI)NonAf (>60 ml/min/1.73 sqM) Glucose (74-99) mg/dL Plasma Lactic Acid J Luis (0.7-2.0) mmol/L Calcium (8.4-10.2) mg/dL Total Bilirubin (0.2-1.3) mg/dL AST (17-59) U/L ALT (21-72) U/L Alkaline Phosphatase (38-126) U/L Total Protein (6.3-8.2) g/dL Albumin (3.5-5.0) g/dL Lipase (23-300) U/L Urine Color Yellow Urine Appearance Clear (Clear) Urine pH 6.0 (5.0-8.0) Ur Specific [place] 1.021 (1.001-1.035) Urine Protein Negative (Negative) Urine Glucose (UA) Negative (Negative) Urine Ketones Negative (Negative) Urine Blood Negative (Negative) Urine Nitrite Negative (Negative) Urine Bilirubin Negative (Negative) Urine Urobilinogen <2.0 (<2.0) mg/dL Ur Leukocyte Esterase Negative (Negative) Disposition Clinical Impression: Abdominal pain Disposition: HOME SELF-CARE Condition: Stable Instructions (If sedation given, give patient instructions): Abdominal Pain (ED) Additional Instructions: Please return to the Emergency Department if symptoms worsen or any other concerns. Is patient prescribed a controlled substance at d/c from ED?: No Referrals: Kaila Engle DO [Primary Care Provider] - 1-2 days Time of Disposition: 14:36
[2019-02-21 13:40] LABS: Appearance,Urine Clear (Clear); Bilirubin,Urine Negative (Negative); Blood,Urine Negative (Negative); Color,Urine Yellow; Glucose,Urine (UA) Negative (Negative); Ketones,Urine Negative (Negative); Leukocyte Esterase,Urine Negative (Negative); Nitrite,Urine Negative (Negative); Protein,Urine Negative (Negative); Specific Gravity,Urine 1.021 (1.001-1.035); Urobilinogen,Urine <2.0 mg/dL (<2.0)
[2019-02-21] MEDS ORDERED: DICYCLOMINE 20 MG TAB PO STA (14:41)
[2019-02-21 14:55] VITALS: BP 130/81; PULSE 67
== END 2019-02-21 14:51 | disposition home or self-care (01) ==
LOC: EC 11:14
DX: R10.9 Unspecified abdominal pain (principal); R11.0 Nausea; G89.18 Other acute postprocedural pain; R10.817 Generalized abdominal tenderness; Z88.8 Allergy status to other drugs, medicaments and biological substances; Z90.49 Acquired absence of other specified parts of digestive tract
CPT/HCPCS: 36415; 80053; 83605; 83690; 85025; 81003; 74018; 99284; 96374; 96375; 96361 ×2; J2405; J1885

== ENCOUNTER → 2019-03-15 | Outpatient (CLI) | payer BC ==
--- NOTE | 2019-03-15 16:57 | CT ---
EXAMINATION TYPE: CT sinus wo con DATE OF EXAM: 03/15/2019 COMPARISON: None HISTORY: Sinus infections CT DLP: 618.1 mGycm CONTRAST: None The paranasal sinuses are examined in the axial plane at 2 mm thick sections. Reconstructed images i n the coronal plane were obtained. There is dental amalgam scatter artifact Right maxillary sinus may have some minimal mucosal thickening along the orbital floor approaching th e hiatus; naris. Left maxillary sinus is patent. The ethmoid air cells are clear. The sphenoid sinu ses are clear. The frontal sinuses are clear. The septum is evaluated. There is septal deviation to the right. The ostiomeatal units are patent. There is some mucosal thickening along the right orbital floor with out obstruction of the ostiomeatal unit. IMPRESSIONS: 1. Mild mucosal thickening within the right maxillary sinus. 2. Ostiomeatal units are patent. 3. Right septal deviation
== END | disposition home or self-care (01) ==
LOC: RADCTMAIN 15:35
PROVIDERS: ATTEND Otolaryngology
DX: J34.2 Deviated nasal septum (principal); J34.89 Other specified disorders of nose and nasal sinuses
CPT/HCPCS: 70486

== ENCOUNTER → 2019-04-30 | Outpatient (CLI) | payer BC ==
[2019-04-30 18:05] LABS: African American GFR (CKD) >90 (>60 ml/min/1.73 sqM); Anion Gap 8 mmol/L; Blood Urea Nitrogen 19 mg/dL (9-20); Calcium 9.8 mg/dL (8.4-10.2); Carbon Dioxide 29 mmol/L (22-30); Chloride 101 mmol/L (98-107); Glucose 91 mg/dL (74-99); Non-African American GFR(CKD) 80 (>60 ml/min/1.73 sqM); Potassium 4.3 mmol/L (3.5-5.1); Sodium 138 mmol/L (137-145)
--- NOTE | 2019-04-30 21:05 | CT ---
EXAMINATION TYPE: CT abdomen pelvis wo/w con DATE OF EXAM: 04/30/2019 COMPARISON: CT abdomen and pelvis July 21, 2018 in the older studies back to April 30, 2017.. HISTORY: Kidney cysts, abdominal pain CT DLP: 2314 mGycm, Automated Exposure Control for Dose Reduction was Utilized. CONTRAST: CT scan of the abdomen and pelvis is performed with oral and without and with IV Contrast, patient in jected with 100 mL of Isovue 300. FINDINGS: LUNG BASES: No significant abnormality is appreciated. LIVER/GB: Liver is diffusely low dense relative to spleen on noncontrast CT consistent with diffuse f atty infiltration. PANCREAS: No significant abnormality is seen. SPLEEN: No significant abnormality is seen. ADRENALS: No significant abnormality is seen. KIDNEYS: No renal calculi identified on noncontrast CT. There is symmetric cortical medullary uptake and excretion from both kidneys without hydronephrosis seen bilaterally. There is persistent exophyt ic low dense lesion anteriorly midpole of the left kidney measuring 1.1 cm on current study with prog ressive slight interval progression in size from 2017. Hounsfield units average between 26 and 20 wit hout postcontrast enhancement suggesting proteinaceous cyst. No new solid or cystic masses are presen t. BOWEL: Oral contrast reaches level of the terminal ileum. No suspicious small or large bowel dilatati on. A few scattered diverticula in the sigmoid colon. No CT evidence for acute diverticulitis. PROSTATE/SEMINAL VESICLES: Prostate gland is mildly enlarged bulging on bladder base, correlate for u nderlying BPH. LYMPH NODES: No greater than 1cm abdominal or pelvic lymph nodes are appreciated. OSSEOUS STRUCTURES: No significant abnormality is seen. OTHER: Small fat-containing umbilical hernia axial image 50 redemonstrated. IMPRESSION: Slightly enlarging left renal lesion without enhancement favors a Bosniak 2 lesion or pro teinaceous cyst. No new renal lesions are evident.
== END | disposition home or self-care (01) ==
LOC: RADCTMAIN 15:39
PROVIDERS: ATTEND Urology
DX: N28.1 Cyst of kidney, acquired (principal)
CPT/HCPCS: 36415; 74178; 80048

== ENCOUNTER → 2019-05-06 | Outpatient (CLI) | payer BC ==
--- NOTE | 2019-05-06 12:52 | XR ---
EXAMINATION TYPE: XR chest 2V DATE OF EXAM: 05/06/2019 COMPARISON: 08/08/2017 TECHNIQUE: PA and lateral views submitted. HISTORY: Cough FINDINGS: Chronic appearing deformity of the left thoracic cage stable. No acute infiltrate or pleural effusion . No pneumothorax. Heart size normal. Hypertrophic and degenerative change of the spine. IMPRESSION: 1. No acute infiltrate.
== END | disposition home or self-care (01) ==
LOC: RADXRMAIN 12:31
PROVIDERS: ATTEND Otolaryngology
DX: R05 Cough (principal)
CPT/HCPCS: 71046

== ENCOUNTER 2019-06-09 08:29 | Outpatient (CLI) | payer BC ==
--- NOTE | 2019-06-16 05:25 | SLS ---
SLEEP STUDY POLYSOMNOGRAM DATE OF SERVICE: 06/09/2019. This patient has chronic hypersomnia. He has had a previous sleep evaluation in the past and the patient was found to have mild obstructive sleep apnea, insufficient sleep syndrome and excessive periodic limb movement activity. He has gained significant amount of weight and he came in for reevaluation. 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 Based on his previous sleep evaluation, the patient was given an APAP and the patient failed to show adequate compliance to the machine and the machine was returned back. He is coming in for reevaluation. For now he is suspected to have insufficient sleep syndrome. In addition, the periodic limb movement activity, possible restless leg syndrome. 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 PERTINENT PHYSICAL FINDINGS: Height is 5 feet 5 inches. Weight 220 pounds and BMI 36.7. TECHNICAL DESCRIPTION: The sleep evaluation of the patient consisted of clinical polysomnography, nocturnal respiratory battery, left and right anterior tibialis surface electromyography. The standard montage for the clinical polysomnography included the EEG, EOG, EMG, and EKG. Respiratory battery included measurements of nasal/buccal airflow, thoracic, and/or abdominal effort and intercostal surface EMG. Nocturnal oxyhemoglobin saturations were obtained by finger oximetry. Digital video and audio monitoring were done throughout the entire night to check or parasomnias. Note: This is a day time study. STUDY OVERVIEW: Total time in bed 6 hours and 9 minutes. Total sleep time is 3 hours and 24 minutes. Sleep efficiency was 55.3%. Latency to sleep onset was 7.9 minutes. Latency to REM sleep is 224.5 minutes. The sleep architecture was characterized by 27.1% stage I, 56.7% stage II, 7.1% stage III, and 9% REM sleep. SLEEP CONTINUITY SUMMARY: A total of 124 arousals, index of 36.4. RESPIRATORY SUMMARY: There were a total of 4 obstructive apneas, 3 mixed apneas, 37 central apneas, and 15 obstructive hypopneas resulting apnea-hypopnea index was 15.7, worse in the supine body position. Note that the predominant respiratory events were central majority occurring in non-REM sleep. OXYGENATION ANALYSIS: The patient has a total of 48 oxygen desaturations with a minimum pulse ox of 86%. He spent approximately 1-1/2 minutes of sleep time with a pulse of less than 90%. CARDIAC SUMMARY: Average heart rate was 56. Minimum heart rate was 42. Maximum heart rate was 86. Rhythm was sinus. PERIODIC LIMB MOVEMENT ACTIVITY: Total of 322 periodic limb movements with an index of 94.5. There were 23 periodic limb movement activity with arousals with an index of 6.7. IMPRESSION: 1. Sleep apnea moderately severe AHI of 17.3, predominantly central with some obstructive events. 2. Mild nocturnal oxygen desaturation. 3. Excessive sleep fragmentation. 4. Diminished sleep efficiency with difficulties in sleep maintenance. Overall sleep efficiency was 55%. Overall latency to sleep onset was quite short less than 10 minutes. 5. Excessive periodic limb movements with a PLMS index of 94, not causing any significant sleep fragmentation. PLAN: As mentioned earlier, this patient's hypersomnia is multifactorial. 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 He also has a moderate component of sleep apnea which is a combination of obstructive and central. He has periodic limb movement activity in addition to poor sleep hygiene and insufficient sleep syndrome. He may be considered for CPAP therapy if he is willing to undertake the treatment. He needs optimize sleep hygiene measures. For increase functionality at his working hours, he may benefit from a stimulant such as modafinil. All of these instructions were given to him at length during his last evaluation. The patient will be coming in to undergo a CPAP titration to see if there is going to be any benefit in improving sleep quality with CPAP. I am going to bring him in for a CPAP titration. Will make further recommendations based on his progress. I think his treatment is going to be CPAP in addition to improving sleep hygiene measures and extending sleep hours and stimulant at night time during working hours. MMODL / IJN: [id number] /
== END 2019-06-09 17:30 | disposition home or self-care (01) ==
LOC: SLEEP 08:29
PROVIDERS: ATTEND Internal Medicine Critical Care Medicine
DX: G47.33 Obstructive sleep apnea (adult) (pediatric) (principal); G47.61 Periodic limb movement disorder; G47.19 Other hypersomnia; G47.8 Other sleep disorders
CPT/HCPCS: 95810

== ENCOUNTER → 2019-08-13 | Outpatient (CLI) | payer BC ==
--- NOTE | 2019-08-13 20:15 | MR ---
EXAMINATION TYPE: MR shoulder RT wo con DATE OF EXAM: 08/13/2019 COMPARISON: X-ray 08/10/2019 HISTORY: Rt shoulder pain, hx surgery TECHNIQUE: Multiplanar, multisequence imaging of the right shoulder is performed without contrast. FINDINGS: Rotator Cuff: There is diffuse abnormal signal involving the conjoined portion of the supraspinatus a nd infraspinatus tendons measuring approximately 1.5 cm. Extends a length of 2 cm to the insertion co mpatible with diffuse tendinopathy and partial tears. No through thickness tear or retraction. Subsca pularis tendon is intact. Acromioclavicular Joint: Hypertrophic change of the AC joint is noted. There is edema signal within t he AC joint. There is no elevation clavicle. Glenohumeral Joint: No sizable joint effusion. Small spur along the lower margin of humeral head. Gle nohumeral joints are intact. Labrum: Poor definition of the anterior labrum suspicious for tear. Biceps Tendon: The long head of biceps is in normal location within bicipital groove. However, the bi ceps tendon is not seen within the rotator interval. Bone marrow signal: Nonspecific marrow signal involving the humeral head with benign cystic appearing changes. Other: No additional significant abnormality is appreciated. IMPRESSION: 1. Diffuse tendinopathy of the distal 2 cm of the supraspinatus and infraspinatus tendons involving t he conjoined portion of the tendon to the level of insertion. Partial intrasubstance tears involving both tendons with no through thickness tear or retraction. 2. Nonvisualization of the biceps tendon and the biceps interval. Bicipital tendon tear is in the dif ferential diagnosis correlate clinically. 3. Anterior labral tear suspected 4. Edema within the AC joint which demonstrates arthropathy. There is no elevation of the clavicle. C orrelate for AC ligament strain.
== END | disposition home or self-care (01) ==
LOC: RADMRIMAIN 18:25
PROVIDERS: ATTEND Orthopaedic Surgery
DX: S46.911A Strain of unspecified muscle, fascia and tendon at shoulder and upper arm level, right arm, initial encounter (principal); M12.811 Other specific arthropathies, not elsewhere classified, right shoulder; M75.81 Other shoulder lesions, right shoulder

== ENCOUNTER 2019-08-23 10:05 | Emergency (ER) | payer BC ==
[2019-08-23 10:13] VITALS: BP 144/89; PULSE 54; RESP 18; TEMP 97.4
[2019-08-23] MEDS ORDERED: ONDANSETRON ODT 4 MG TAB PO STA (10:41)
[2019-08-23] MEDS ORDERED: HYDROmorphone 1 MG/ML 1 ML SYRINGE IM STA (10:41)
--- NOTE | 2019-08-23 10:45 | ED ---
Back Pain HPI - General Chief Complaint: Back Pain/Injury Stated Complaint: Back Pain Time Seen by Provider: 08/23/19 10:26 Source: patient, RN notes reviewed Limitations: no limitations - History of Present Illness Initial Comments: This a 54-year-old male presents emergency Department chief complaint of low back pain. Patient states she's lifting some boxes and felt a pop in his low back. He states that the pain has been unbearable. He states never had pain to this extent in his low back. Denies any bowel, bladder incontinence or retention. Denies any abdominal pain. He states it hurts with any movement. Patient has no dysuria no hematuria. Patient states that he took some meds from for exam with extension no relief. Patient offers no other complaints. - Related Data Home Medications Medication Instructions Recorded Confirmed Cholecalciferol (Vitamin D3) 2,000 unit PO DAILY 04/12/19 [Vitamin D3] Cyanocobalamin (Vitamin B-12) 1,000 mcg PO DAILY 04/12/19 [Vitamin B-12] Previous Rx's Medication Instructions Recorded Cyclobenzaprine [Flexeril] 10 mg PO TID PRN #15 tab 08/23/19 Ibuprofen [Motrin] 600 mg PO Q8HR PRN #30 tab 08/23/19 Allergies Allergy/AdvReac Type Severity Reaction Status Date / Time metoclopramide [From Reglan] AdvReac Dyspnea Verified 08/23/19 10:10 Review of Systems ROS Statement: Those systems with pertinent positive or pertinent negative responses have been documented in the HPI. ROS Other: All systems not noted in ROS Statement are negative. Past Medical History Past Medical History: Hyperlipidemia Additional Past Medical History / Comment(s): asthma (child), RLS, back pain - sees chiropractor, cysts on kidneys., states he will be retested for sleep apnea., abdominal pain History of Any Multi-Drug Resistant Organisms: None Reported Past Surgical History: Adenoidectomy, Cholecystectomy, Hernia Repair, Orthopedic Surgery, Tonsillectomy Additional Past Surgical History / Comment(s): rotator cuff/bicep muscle cyst removed Past Anesthesia/Blood Transfusion Reactions: Previous Problems w/ Anesthesia Additional Past Anesthesia/Blood Transfusion Reaction / Comment(s): slow to wake Past Psychological History: No Psychological Hx Reported Smoking Status: Never smoker Past Alcohol Use History: Rare Past Drug Use History: None Reported - Past Family History Mother Family Medical History: Cancer General Exam Limitations: no limitations General appearance: alert, in no apparent distress Head exam: Present: atraumatic, normocephalic, normal inspection Neck exam: Present: normal inspection. Absent: tenderness, meningismus, lymphadenopathy Respiratory exam: Present: normal lung sounds bilaterally. Absent: respiratory distress, wheezes, rales, rhonchi, stridor Cardiovascular Exam: Present: regular rate, normal rhythm, normal heart sounds. Absent: systolic murmur, diastolic murmur, rubs, gallop, clicks GI/Abdominal exam: Present: soft, normal bowel sounds. Absent: distended, tenderness, guarding, rebound, rigid Extremities exam: Present: other (Lower extremity strength equal bilaterally, equal color equal warmth neurovascular intact) Back exam: Present: full ROM, tenderness, muscle spasm, paraspinal tenderness. Absent: CVA tenderness (R), CVA tenderness (L), vertebral tenderness Neurological exam: Present: alert, oriented X3, CN II-XII intact, reflexes normal. Absent: motor sensory deficit Skin exam: Present: warm, dry, intact, normal color. Absent: rash Course Vital Signs 08/23/19 10:10 Temperature 97.4 F L Pulse Rate 54 L Respiratory 18 Rate Blood Pressure 144/89 O2 Sat by Pulse 98 Oximetry Medical Decision Making - Medical Decision Making X-ray shows some slight curvature may be related to muscle spasm. Patient has a lumbar strain with no red flag symptoms we discharged in stable condition return parameters were discussed. Disposition Clinical Impression: Lumbar strain Disposition: HOME SELF-CARE Condition: Stable Instructions (If sedation given, give patient instructions): Acute Low Back Pain (ED) Additional Instructions: Please return to the Emergency Department if symptoms worsen or any other concerns. Prescriptions: Cyclobenzaprine [Flexeril] 10 mg PO TID PRN #15 tab PRN Reason: Muscle Spasm Ibuprofen [Motrin] 600 mg PO Q8HR PRN #30 tab PRN Reason: Pain Is patient prescribed a controlled substance at d/c from ED?: No Referrals: Kaila Engle DO [Primary Care Provider] - 1-2 days Time of Disposition: 11:17
--- NOTE | 2019-08-23 11:01 | XR ---
EXAMINATION TYPE: XR lumbosacral spine min 4V DATE OF EXAM: 08/23/2019 COMPARISON: NONE HISTORY: 54-year-old male low back pain going down the right leg. TECHNIQUE: 5 views FINDINGS: Leftward truncal shift may be positional or due to muscle spasm. 5 lumbar type vertebral bodies. Mild facet arthropathy lower lumbar spine. Mild disc space narrowing L4-L5 and L5-S1. Vertebral body heig hts are preserved and alignment is maintained. IMPRESSION: 1. Leftward truncal shift may be positional or due to muscle spasm. 2. Mild facet arthropathy and degenerative disc disease lower lumbar spine. 3. No vertebral compression collapse or malalignment.
[2019-08-23] MEDS ORDERED: ACET/COD 300 MG/30 MG STARTER PACK 6 TAB BTL PO STA (11:17)
== END 2019-08-23 11:29 | disposition home or self-care (01) ==
LOC: EC 10:05
DX: S39.012A Strain of muscle, fascia and tendon of lower back, initial encounter (principal); X50.0XXA Overexertion from strenuous movement or load, initial encounter; Z88.8 Allergy status to other drugs, medicaments and biological substances; Y93.89 Activity, other specified
CPT/HCPCS: 72110; 99283; 96372; J1170

== ENCOUNTER 2019-09-15 13:47 | Observation (INO) | payer BC ==
--- NOTE | 2019-09-15 14:38 | XR ---
EXAMINATION TYPE: XR chest 1V portable DATE OF EXAM: 09/15/2019 CLINICAL HISTORY: Chest pain TECHNIQUE: Single frontal view of the chest is obtained. COMPARISON: 05/06/2019 FINDINGS: There is no focal air space opacity, pleural effusion, or pneumothorax seen. The cardiac silhouette size is within normal limits. The osseous structures are intact. IMPRESSION: No acute process.
[2019-09-15] MEDS ORDERED: ACETAMINOPHEN TAB 500 MG TAB PO STA (14:51)
[2019-09-15] MEDS ORDERED: SODIUM CHLORIDE 0.9% 1,000 ML IV STA (14:51)
[2019-09-15] MEDS ORDERED: ASPIRIN 81 MG PO STA (14:51)
[2019-09-15] MEDS ORDERED: ONDANSETRON 4 MG/2 ML VIAL IVP STA (14:51)
[2019-09-15] MEDS ORDERED: diphenhydrAMINE 50 MG/ML 1 ML VIAL IVP STA (14:51)
--- NOTE | 2019-09-15 14:55 | ED ---
General Adult HPI - General Source: patient Mode of arrival: ambulatory Limitations: no limitations <Howard Hamilton Fitz - Last Filed: 09/15/19 15:19> <Indu Appiah Leno - Last Filed: 09/18/19 13:08> - General Chief complaint: Chest Pain Stated complaint: chest pain,headache Time Seen by Provider: 09/15/19 13:54 - History of Present Illness Initial comments: Dictation was produced using [employer] dictation software. please excuse any grammatical, word or spelling errors. This patient was cared for during a federal and state declared state of emergency secondary to Covid 19 Chief Complaint: 54-year-old male presents with headache and chest pain. History of Present Illness: 84-year-old male he has past medical history of dyslipidemia. He states that since yesterday's been having chest pain. Patient states that his symptom is to his left anterior chest. He states it's a crushing sensation. He does report some paresthesias to the perioral area. No associated diaphoresis.. At approximately 11 AM he also began having severe headache. She states that he has history of headaches. He states that his headaches. However however this was more severe than usual. Patient has family history of aneurysms. He also has family history of coronary artery disease. Patient is here today because he believes that the chest pain and headache are related. It has a fever, chills or night sweats. No cough. Pain does not radiate to the back. The ROS documented in this emergency department record has been reviewed and confirmed by me. Those systems with pertinent positive or negative responses have been documented in the HPI. All other systems are other negative and/or noncontributory. PHYSICAL EXAM: General Impression: Alert and oriented x3, acute distress secondary to pain HEENT: Normocephalic atraumatic, extra-ocular movements intact, pupils equal and reactive to light bilaterally, mucous membranes moist. Cardiovascular: Heart regular rate and rhythm Chest: Able to complete full sentences, no retractions, no tachypnea Abdomen: Bowel sounds present, abdomen soft, non-tender, non-distended, no organomegaly Musculoskeletal: Pulses present and equal in all extremities, no peripheral edema Motor: no focal deficits noted Neurological: CN II-XII grossly intact, no focal motor or sensory deficits noted Skin: Intact with no visualized rashes Psych: Normal affect and mood ED course: 54-year-old male past medical history dyslipidemia presents with chest pain and headache. His upon arrival are within acceptable limits. Patient's family history of coronary artery disease and intracranial aneurysms. He does say yes when asked if this is the most severe headache he's ever had and thunderclap in nature. Concerning the patient's symptoms began approximately 4 hours prior to arrival. CT will be ordered to rule out bleeding intracranial aneurysm. Patient is signed out to Dr. Appiah EKG interpretation: Ventricular rate 66, normal sinus rhythm, NY interval. No NY prolongation, no QTC prolongation no old EKG for comparison T-wave inversions and ST depressions in lead 3 and slightly and aVF. Overall, this EKG is nonspecific. (Howard Hamilton) - Related Data Home Medications Medication Instructions Recorded Confirmed Acetaminophen Tab [Tylenol] 650 mg PO Q4H PRN 09/15/19 09/15/19 Ibuprofen [Motrin Ib] 400 mg PO Q6H PRN 09/15/19 09/15/19 Allergies Allergy/AdvReac Type Severity Reaction Status Date / Time metoclopramide [From Reglan] AdvReac Dyspnea/anx Verified 09/15/19 14:43 iety Review of Systems ROS Other: All systems not noted in ROS Statement are negative. <Howard Hamilton - Last Filed: 09/15/19 15:19> ROS Other: All systems not noted in ROS Statement are negative. <Indu Appiah - Last Filed: 09/18/19 13:08> ROS Statement: Those systems with pertinent positive or pertinent negative responses have been documented in the HPI. Past Medical History Past Medical History: Hyperlipidemia Additional Past Medical History / Comment(s): asthma (child), RLS, back pain - sees chiropractor, cysts on kidneys., states he will be retested for sleep apnea., abdominal pain, History of Any Multi-Drug Resistant Organisms: None Reported Past Surgical History: Adenoidectomy, Cholecystectomy, Hernia Repair, Orthopedic Surgery, Tonsillectomy Additional Past Surgical History / Comment(s): rotator cuff/bicep muscle cyst removed, Past Anesthesia/Blood Transfusion Reactions: Previous Problems w/ Anesthesia Additional Past Anesthesia/Blood Transfusion Reaction / Comment(s): slow to wake Past Psychological History: No Psychological Hx Reported Smoking Status: Never smoker Past Alcohol Use History: Rare Past Drug Use History: None Reported - Past Family History Mother Family Medical History: Cancer <Howard Hamilton - Last Filed: 09/15/19 15:19> General Exam Limitations: no limitations <Howard Hamilton - Last Filed: 09/15/19 15:19> Course Vital Signs 09/15/19 09/15/19 09/15/19 13:50 14:53 17:31 Temperature 97.6 F Pulse Rate 62 65 Pulse Rate [ 75 Optical Effects Line Up Person ] Respiratory 18 18 Rate Blood Pressure 160/88 116/57 O2 Sat by Pulse 96 98 Oximetry EKG Findings - EKG Comments: EKG Findings:: EKG demonstrates a normal sinus rhythm with a ventricular rate of 61. [place] interval 140. QRS 92. QTC of 392. Inverted T-wave in lead 3. No acute ST segment elevations <Indu Appiah - Last Filed: 09/18/19 13:08> Medical Decision Making - Lab Data Result diagrams: 09/15/19 15:12 09/15/19 15:12 <Indu Appiah - Last Filed: 09/18/19 13:08> - Medical Decision Making The patient was signed out to me from Dr. hamilton. I did review his laboratory studies. First troponin is negative. Chest x-ray demonstrates no acute process. CT of the patient's brain demonstrates age-related atrophic and chronic small vessel ischemic change without acute intracranial process. I reevaluated the patient any reports that his headache has markedly improved. Chest pain is gone at this time. I discussed the diagnosis, differential and treatment options. The patient has not previously had a cardiac evaluation. Because of his concerning history did recommend admission for which the patient did agree. I discussed the case with Dr. Almanza who accepted admission for the patient. I will consult cardiology and trend his troponins. The patient was transferred to floor in stable condition (Indu Appiah) - Lab Data Lab Results 09/15/19 09/15/19 09/15/19 Range/Units 15:12 15:12 15:12 WBC 11.7 H (3.8-10.6) k/uL RBC 5.16 (4.30-5.90) m/uL Hgb 15.0 (13.0-17.5) gm/dL Hct 44.5 (39.0-53.0) % MCV 86.3 (80.0-100.0) fL MCH 29.0 (25.0-35.0) pg MCHC 33.6 (31.0-37.0) g/dL RDW 12.9 (11.5-15.5) % Plt Count 293 (150-450) k/uL Neutrophils % 61 % Lymphocytes % 26 % Monocytes % 7 % Eosinophils % 2 % Basophils % 1 % Neutrophils # 7.2 (1.3-7.7) k/uL Lymphocytes # 3.1 (1.0-4.8) k/uL Monocytes # 0.8 (0-1.0) k/uL Eosinophils # 0.3 (0-0.7) k/uL Basophils # 0.1 (0-0.2) k/uL PT 9.8 (9.0-12.0) sec INR 0.9 (<1.2) APTT 24.2 (22.0-30.0) sec Sodium 136 L (137-145) mmol/L Potassium 3.8 (3.5-5.1) mmol/L Chloride 105 (98-107) mmol/L Carbon Dioxide 26 (22-30) mmol/L Anion Gap 5 mmol/L BUN 25 H (9-20) mg/dL Creatinine 0.87 (0.66-1.25) mg/dL Est GFR (CKD-EPI)AfAm >90 (>60 ml/min/1.73 sqM) Est GFR (CKD-EPI)NonAf >90 (>60 ml/min/1.73 sqM) Glucose 100 H (74-99) mg/dL Calcium 9.1 (8.4-10.2) mg/dL Magnesium 2.4 H (1.6-2.3) mg/dL Total Bilirubin 0.3 (0.2-1.3) mg/dL AST 39 (17-59) U/L ALT 41 (4-49) U/L Alkaline Phosphatase 53 (38-126) U/L Troponin I (0.000-0.034) ng/mL Total Protein 6.8 (6.3-8.2) g/dL Albumin 4.2 (3.5-5.0) g/dL 04/15/20 Range/Units 15:12 WBC (3.8-10.6) k/uL RBC (4.30-5.90) m/uL Hgb (13.0-17.5) gm/dL Hct (39.0-53.0) % MCV (80.0-100.0) fL MCH (25.0-35.0) pg MCHC (31.0-37.0) g/dL RDW (11.5-15.5) % Plt Count (150-450) k/uL Neutrophils % % Lymphocytes % % Monocytes % % Eosinophils % % Basophils % % Neutrophils # (1.3-7.7) k/uL Lymphocytes # (1.0-4.8) k/uL Monocytes # (0-1.0) k/uL Eosinophils # (0-0.7) k/uL Basophils # (0-0.2) k/uL PT (9.0-12.0) sec INR (<1.2) APTT (22.0-30.0) sec Sodium (137-145) mmol/L Potassium (3.5-5.1) mmol/L Chloride (98-107) mmol/L Carbon Dioxide (22-30) mmol/L Anion Gap mmol/L BUN (9-20) mg/dL Creatinine (0.66-1.25) mg/dL Est GFR (CKD-EPI)AfAm (>60 ml/min/1.73 sqM) Est GFR (CKD-EPI)NonAf (>60 ml/min/1.73 sqM) Glucose (74-99) mg/dL Calcium (8.4-10.2) mg/dL Magnesium (1.6-2.3) mg/dL Total Bilirubin (0.2-1.3) mg/dL AST (17-59) U/L ALT (4-49) U/L Alkaline Phosphatase (38-126) U/L Troponin I <0.012 (0.000-0.034) ng/mL Total Protein (6.3-8.2) g/dL Albumin (3.5-5.0) g/dL Disposition <Howard Hamilton - Last Filed: 09/15/19 15:19> Is patient prescribed a controlled substance at d/c from ED?: No Decision to Admit Reason: Admit from EC Decision Date: 09/15/19 Decision Time: 16:35 <Indu Appiah - Last Filed: 09/18/19 13:08> Clinical Impression: Headache, Chest pain Disposition: ADMITTED IP TO THIS HOSP Condition: Stable
--- NOTE | 2019-09-15 15:07 | CT ---
EXAMINATION TYPE: CT brain wo con DATE OF EXAM: 09/15/2019 COMPARISON: January 27, 2018 HISTORY: Headache Unenhanced CT of the brain was performed. The ventricles, basal cisterns and sulci overlying the cerebral convexities demonstrate mild enlargem ent. There is no evidence for intracranial hemorrhage or sulcal effacement. There is decreased attenuation about the periventricular white matter and deep white matter of both c erebral hemispheres, compatible with chronic small vessel ischemia. Differential diagnosis does inclu de demyelination. No mass effects are seen.No midline shift. Osseous calvarium is intact. If symptoms persist consider MRI. IMPRESSION: 1. Age related atrophic and chronic small vessel ischemic change without acute intracranial process s een at this time.
[2019-09-15 15:25] LABS: Basophils # (A) 0.1 k/uL (0-0.2); Basophils % (A) 1 %; Eosinophils # (A) 0.3 k/uL (0-0.7); Eosinophils % (A) 2 %; HCT 44.5 % (39.0-53.0); Lymphocytes # (A) 3.1 k/uL (1.0-4.8); Lymphocytes % (A) 26 %; MCHC 33.6 g/dL (31.0-37.0); MCV 86.3 fL (80.0-100.0); Mean Platelet Volume 7.8; Monocytes # (A) 0.8 k/uL (0-1.0); Monocytes % (A) 7 %; Neutrophils # (A) 7.2 k/uL (1.3-7.7); Neutrophils % (A) 61 %; Platelet Count 293 k/uL (150-450); RBC 5.16 m/uL (4.30-5.90); RDW 12.9 % (11.5-15.5); WBC 11.7 k/uL (3.8-10.6)
[2019-09-15 15:33] LABS: ALT 41 U/L (4-49); AST 39 U/L (17-59); African American GFR (CKD) >90 (>60 ml/min/1.73 sqM); Albumin 4.2 g/dL (3.5-5.0); Alkaline Phosphatase 53 U/L (38-126); Anion Gap 5 mmol/L; Blood Urea Nitrogen 25 mg/dL (9-20); Calcium 9.1 mg/dL (8.4-10.2); Carbon Dioxide 26 mmol/L (22-30); Chloride 105 mmol/L (98-107); Glucose 100 mg/dL (74-99); Magnesium 2.4 mg/dL (1.6-2.3); Non-African American GFR(CKD) >90 (>60 ml/min/1.73 sqM); Potassium 3.8 mmol/L (3.5-5.1); Sodium 136 mmol/L (137-145); Total Bilirubin 0.3 mg/dL (0.2-1.3); Total Protein 6.8 g/dL (6.3-8.2)
[2019-09-15 15:39] LABS: INR 0.9 (<1.2); Partial Thromboplastin Time 24.2 sec (22.0-30.0); Prothrombin Time 9.8 sec (9.0-12.0)
[2019-09-15] MEDS ORDERED: NALOXONE 0.4 MG/ML 1 ML VIAL IV PRN (16:35)
[2019-09-15] MEDS ORDERED: MAGNESIUM SULFATE-D5W PMX 1 GM in DEXTROSE/WATER 1 100ML.BAG IVPB ONE (18:31)
[2019-09-15] MEDS ORDERED: PROCHLORPERAZINE 5 MG TAB PO STA (18:39)
[2019-09-15] MEDS: IBUPROFEN 600 MG TAB PO PRN (19:05)
--- NOTE | 2019-09-16 10:11 | ECHOF ---
Referral Reason:chest pain MEASUREMENTS -------- HEIGHT: 167.6 cm WEIGHT: 98.0 kg BP: 132/45 RVIDd: 3.5 cm (< 3.3) IVSd: 1.3 cm (0.6 - 1.1) LVIDd: 4.4 cm (3.9 - 5.3) LVPWd: 1.2 cm (0.6 - 1.1) IVSs: 2.2 cm LVIDs: 2.6 cm LVPWs: 1.7 cm LA Diam: 3.4 cm (2.7 - 3.8) LAESV Index (A-L): 14.97 ml/m Ao Diam: 3.3 cm (2.0 - 3.7) AV Cusp: 2.0 cm (1.5 - 2.6) MV EXCURSION: 15.279 mm (> 18.000) MV EF SLOPE: 53 mm/s (70 - 150) EPSS: 0.0 cm MV E Gio: 0.74 m/s MV DecT: 254 ms MV A Gio: 0.70 m/s MV E/A Ratio: 1.06 FINDINGS -------- Sinus rhythm. This was a technically adequate study. The left ventricular size is normal. There is mild concentric left ventricular hypertrophy. Overa ll left ventricular systolic function is normal with, an EF between 55 - 60 %. The right ventricle is mildly enlarged. Normal LA size by volume 22+/-6 ml/m2. The right atrial size is normal. Interatrial and interventricular septum intact. The aortic valve is trileaflet, and appears structurally normal. No aortic stenosis or regurgitation. The mitral valve is normal. No mitral regurgitation. Trace tricuspid regurgitation present. The pulmonic valve was not well visualized. There is no pulmonic regurgitation present. The aortic root size is normal. Normal inferior vena cava with normal inspiratory collapse consistent with estimated right atrial pre ssure of 5 mmHg. There is no pericardial effusion. CONCLUSIONS -------- 1. There is mild concentric left ventricular hypertrophy. 2. Overall left ventricular systolic function is normal with, an EF between 55 - 60 %. 3. The right ventricle is mildly enlarged. 4. Normal LA size by volume 22+/-6 ml/m2. 5. The aortic valve is trileaflet, and appears structurally normal. No aortic stenosis or regurgitati on. 6. The mitral valve is normal. 7. Trace tricuspid regurgitation present. CUSTOMER MANAGEMENT SPECIALIST: VALERIE Dueñas
--- NOTE | 2019-09-16 10:41 | ECHOS ---
STRESS ECHOCARDIOGRAM INDICATIONS: Chest pain. MEDICATIONS: BASELINE HEART RATE: 56 BASELINE BLOOD PRESSURE: 132/65 MAXIMUM HEART RATE: 160 MAXIMUM BLOOD PRESSURE: 180/71 85% MPHR: 143 100% MPHR: 168 METS: 11.5 MAXIMUM STAGE REACHED: IV TOTAL EXERCISE TIME: 10 minutes 11 seconds CLINICAL INFORMATION: Baseline rhythm is a sinus mechanism, rate of 56, normal axis, intervals, normal electrocardiogram. Baseline blood pressure 132/65 mmHg. Patient exercise on [place] protocol for all 10 minutes 11 seconds reaching peak rate 160 beats per minute which is equal to 95% maximum predicted heart rate. Peak blood pressure 180/71 mmHg. Test was terminated secondary to fatigue. There was no chest pain. Electrocardiograph monitoring revealed no evidence of diagnostic ischemic ST deviation. Rare PVCs were noted. Baseline echocardiogram revealed normal wall thickening and motion. At peak exercise, there was normal wall motion augmentation with no hypokinesis or dyskinesis. CONCLUSION: 1. Good exercise tolerance with normal electrocardiograph response to exercise. 2. Normal stress echocardiogram with no evidence of stress induced ischemia. MMODL / IJN: [id number] /
--- NOTE | 2019-09-16 11:37 | US ---
EXAMINATION TYPE: US carotid duplex BILAT DATE OF EXAM: 09/16/2019 COMPARISON: NONE CLINICAL HISTORY: facial paresthesia. EXAM MEASUREMENTS: RIGHT: Peak Systolic Velocity (PSV) cm/sec ----- Right CCA: 58.6 ----- Right ICA: 93.2 ----- Right ECA: 95.4 ICA/CCA ratio: 1.6 RIGHT: End Diastole cm/sec ----- Right CCA: 22.2 ----- Right ICA: 43.9 ----- Right ECA: 17.6 LEFT: Peak Systolic Velocity (PSV) cm/sec ----- Left CCA: 67.8 ----- Left ICA: 93.0 ----- Left ECA: 85.1 ICA/CCA ratio: 1.4 LEFT: End Diastole cm/sec ----- Left CCA: 26.2 ----- Left ICA: 45.8 ----- Left ECA: 14.3 VERTEBRALS (direction of flow): Right Vertebral: Antegrade Left Vertebral: Antegrade Rhythm: Normal No elevated velocities, no significant stenosis. IMPRESSION: No evidence for hemodynamically significant stenosis. Criteria for Assigning % of Stenosis / Diameter reduction (Estimation based on the indirect measurements of the internal carotid artery velocities (ICA PSV). 1. Normal (no stenosis)=ICA PSV < 125 cm/s: ratio < 2.0: ICA EDV<40 cm/s. 2. Less than 50% stenosis=ICA PSV < 125 cm/s: ratio < 2.0: ICA EDV<40 cm/s. 3. 50 to 69% stenosis=ICA PSV of 125 to 230 cm/s: ration 2.0 ? 4.0: ICA EDV 40-100 cm/s. 4. Greater than 70% stenosis to near occlusion= ICA PSV > 230 cm/s: ratio > 4.0: ICA EDV > 100 cm/s. 5. Near occlusion= ICA PSV velocities may be low or undetectable: variable ratio and ICA EDV. 6. Total occlusion=unable to detect flow.
[2019-09-16 11:40] VITALS: RESP 18; TEMP 97.7
[2019-09-16] MEDS: IBUPROFEN 600 MG TAB PO PRN (11:44)
--- NOTE | 2019-09-16 12:13 | P.CRDCN ---
History of Present Illness Consult date: 09/16/19 Requesting physician: Marcos Engle Consult reason: chest pain Chief complaint: Chest pain History of present illness: This is a 54-year-old gentleman with no prior documented history of hypertension, no diabetes, hyperlipidemia, he is a nonsmoker. He presents to the hospital with symptoms of chest discomfort, patient also states that he had an episode of numbness and tingling in the left side of his face up into the periorbital area, after that he developed a moderate to severe headache. Because of the symptoms he was advised by his primary care doctor to come to the emergency room for further evaluation and treatment. Laboratory data was reviewed, white blood cell count 11.7, hemoglobin 15, platelet count 293. Sodium 136, potassium 3.8, BUN 25, creatinine 0.8. Troponins were negative 3. Past Medical History Past Medical History: Hyperlipidemia Additional Past Medical History / Comment(s): asthma (child), RLS, back pain - sees chiropractor, cysts on kidneys., states he will be retested for sleep apne a., abdominal pain History of Any Multi-Drug Resistant Organisms: None Reported Past Surgical History: Adenoidectomy, Cholecystectomy, Hernia Repair, Orthopedic Surgery, Tonsillectomy Additional Past Surgical History / Comment(s): rotator cuff/bicep muscle cyst removed, Past Anesthesia/Blood Transfusion Reactions: Previous Problems w/ Anesthesia Additional Past Anesthesia/Blood Transfusion Reaction / Comment(s): slow to wake Past Psychological History: No Psychological Hx Reported Smoking Status: Never smoker Past Alcohol Use History: Rare Past Drug Use History: None Reported - Past Family History Mother Family Medical History: Cancer Father Family Medical History: CVA/TIA Medications and Allergies Home Medications Medication Instructions Recorded Confirmed Type Acetaminophen Tab [Tylenol] 650 mg PO Q4H PRN 09/15/19 09/15/19 History Ibuprofen [Motrin Ib] 400 mg PO Q6H PRN 09/15/19 09/15/19 History Allergies Allergy/AdvReac Type Severity Reaction Status Date / Time metoclopramide [From Reglan] AdvReac Dyspnea/anx Verified 09/15/19 14:43 iety Physical Exam Vitals: Vital Signs Temp Pulse Pulse Resp BP BP Pulse Ox 09/16/19 11:38 97.7 F 61 18 138/83 09/16/19 08:59 97 09/16/19 08:00 55 L 16 09/16/19 07:43 98.2 F 55 L 16 128/73 98 09/16/19 04:00 98.2 F 53 L 18 133/64 98 09/16/19 00:00 98.0 F 61 18 132/77 97 09/15/19 20:00 98.1 F 59 L 16 134/69 96 09/15/19 18:08 59 L 16 09/15/19 17:53 97.9 F 59 L 16 114/68 98 09/15/19 17:31 65 18 116/57 98 09/15/19 14:53 75 09/15/19 13:50 97.6 F 62 18 160/88 96 Intake and Output 09/15/19 09/16/19 09/16/19 22:59 06:59 14:59 Intake Total 780 120 Balance 780 120 Intake: Oral 780 120 Other: # Voids 1 Weight 98.883 kg 98.2 kg 98.2 kg PHYSICAL EXAMINATION: GENERAL: 54-year-old gentleman in no acute distress at the time of my examination HEENT: Head is atraumatic, normocephalic. Pupils equal, round. Sclera anicteric. Conjunctiva are clear. Mucous membranes of the mouth are moist. Neck is supple. There is no elevated jugular venous pressure.No Carotid] bruit is heard. HEART EXAMINATION: Heart S1, S2 normal. No murmur or gallop heard. CHEST EXAMINATION: Lungs are clear to auscultation and precussion. No chest wall tenderness is noted on palpation or with deep breathing. ABDOMEN: Soft, nontender. Bowel sounds are heard. No organomegaly noted. EXTREMITIES: 2+ peripheral pulses with no evidence of peripheral edema and no calf tenderness noted. NEUROLOGIC patient is awake, alert and oriented X3 . Results 09/15/19 15:12 09/15/19 15:12 Cardiac Enzymes 09/15/19 09/15/19 09/15/19 Range/Units 15:12 15:12 20:58 AST 39 (17-59) U/L Troponin I <0.012 <0.012 (0.000-0.034) ng/mL 09/16/19 Range/Units 03:36 AST (17-59) U/L Troponin I <0.012 (0.000-0.034) ng/mL Coagulation 09/15/19 Range/Units 15:12 PT 9.8 (9.0-12.0) sec APTT 24.2 (22.0-30.0) sec CBC 09/15/19 Range/Units 15:12 WBC 11.7 H (3.8-10.6) k/uL RBC 5.16 (4.30-5.90) m/uL Hgb 15.0 (13.0-17.5) gm/dL Hct 44.5 (39.0-53.0) % Plt Count 293 (150-450) k/uL Comprehensive Metabolic Panel 09/15/19 Range/Units 15:12 Sodium 136 L (137-145) mmol/L Potassium 3.8 (3.5-5.1) mmol/L Chloride 105 (98-107) mmol/L Carbon Dioxide 26 (22-30) mmol/L BUN 25 H (9-20) mg/dL Creatinine 0.87 (0.66-1.25) mg/dL Glucose 100 H (74-99) mg/dL Calcium 9.1 (8.4-10.2) mg/dL AST 39 (17-59) U/L ALT 41 (4-49) U/L Alkaline Phosphatase 53 (38-126) U/L Total Protein 6.8 (6.3-8.2) g/dL Albumin 4.2 (3.5-5.0) g/dL Current Medications Generic Name Dose Route Start Last Admin Trade Name Freq PRN Reason Stop Dose Admin Ibuprofen 600 mg 09/15/19 18:32 09/16/19 11:44 Motrin PO 600 mg TID PRN Administration Fever and/ or Pain Naloxone HCl 0.2 mg 09/15/19 16:35 Narcan IV Q2M PRN Opioid Reversal Intake and Output 09/15/19 09/16/19 09/16/19 22:59 06:59 14:59 Intake Total 780 120 Balance 780 120 Intake: Oral 780 120 Other: # Voids 1 Weight 98.883 kg 98.2 kg 98.2 kg Patient Weight 09/17/19 06:59 Weight 98.2 kg 09/15/19 15:12 09/15/19 15:12 EKG Interpretations (text) EKG shows a normal sinus rhythm with no acute changes. Assessment and Plan Plan: Assessment and plan #1 chest pain with atypical features for acute coronary syndrome. Troponins negative 3. EKG shows normal sinus rhythm with no acute changes. #2 hyperlipidemia #3 symptoms of a left facial numbness and tingling with associated headache, neurology consulted Plan We will obtain an echocardiogram with Doppler study as well as a stress echocardiographic study. If the echo and stress echo are normal, then from cardiology's perspective we will follow this patient along with you on an as- needed basis only. Further recommendations to follow. DNP note has been reviewed, I agree with a documented findings and plan of care. Patient was seen and examined.
[2019-09-16 14:59] VITALS: BP 145/70
[2019-09-16 15:03] VITALS: PULSE 75
--- NOTE | 2019-09-19 22:14 | P.HPIM ---
History of Present Illness H&P Date: 09/17/19 Chief Complaint: chest pain Primo Gleason is a 54-year-old gentleman with no significant PMH who presented to the ED complaining of chest discomfort, with an episode of numbness and tingling in the left side of his face up into the periorbital area, after that he developed a moderate to severe headache. Because of the symptoms he was advised by his primary care doctor to come to the emergency room for further evaluation and treatment. On presentation his vitals were stable, WBC 11.7, chemistry wnl, EKG NSR, CXR NAP. He underwent CT head which was wnl. He is a no nsmoker and denies previous history of chest pain or migraine. Past Medical History Past Medical History: Hyperlipidemia Additional Past Medical History / Comment(s): asthma (child), RLS, back pain - sees chiropractor, cysts on kidneys., states he will be retested for sleep apnea., abdominal pain History of Any Multi-Drug Resistant Organisms: None Reported Past Surgical History: Adenoidectomy, Cholecystectomy, Hernia Repair, Orthopedic Surgery, Tonsillectomy Additional Past Surgical History / Comment(s): rotator cuff/bicep muscle cyst removed, Past Anesthesia/Blood Transfusion Reactions: Previous Problems w/ Anesthesia Additional Past Anesthesia/Blood Transfusion Reaction / Comment(s): slow to wake Past Psychological History: No Psychological Hx Reported Smoking Status: Never smoker Past Alcohol Use History: Rare Past Drug Use History: None Reported - Past Family History Mother Family Medical History: Cancer Father Family Medical History: CVA/TIA Medications and Allergies Home Medications Medication Instructions Recorded Confirmed Type Acetaminophen Tab [Tylenol] 650 mg PO Q4H PRN 09/15/19 09/15/19 History Ibuprofen [Motrin Ib] 400 mg PO Q6H PRN 09/15/19 09/15/19 History Allergies Allergy/AdvReac Type Severity Reaction Status Date / Time metoclopramide [From Reglan] AdvReac Dyspnea/anx Verified 09/15/19 14:43 iety Physical Exam General: well nourished, well developed, NAD. Vitals reviewed Eyes: PERRL, EOMI, conjunctiva normal HENT: normocephalic, mucus membranes moist Neck: supple, no JVD Lungs: normal respiratory effort, no wheezes or rales CV: Regular rate and rhythm, no murmur. Peripheral pulses 2+ Abdomen: soft, nondistended, no organomegaly Lymph: no cervical or axillary LAD Skin: warm and dry. Neuro: A&Ox3, normal mood and affect Results CBC & Chem 7: 09/15/19 15:12 09/15/19 15:12 Thrombosis Risk Factor Assmnt - Choose All That Apply Each Factor Represents 1 point: Age 41-60 years Thrombosis Risk Factor Assessment Total Risk Factor Score: 1 Thrombosis Risk Factor Assessment Level: Low Risk Assessment and Plan (1) Migraine headache Status: Acute Code(s): G43.909 - MIGRAINE, UNSP, NOT INTRACTABLE, WITHOUT STATUS MIGRAINOSUS SNOMED Code(s): 44700400 (2) Chest pain Status: Acute Code(s): R07.9 - CHEST PAIN, UNSPECIFIED SNOMED Code(s): 98205297 (3) Headache Status: Acute Code(s): R51 - HEADACHE SNOMED Code(s): 91171671 Plan: 1. Chest pain. ACS ruled out. cardiology consulted, pt for stress echo 2. Headache. Treat with magnesium, tylenol, benadryl
--- NOTE | 2019-09-19 22:15 | P.DS ---
Providers Date of admission: 09/15/19 16:35 Expected date of discharge: 09/17/19 Attending physician: Marcos Engle MD Consults: 09/15/19 16:36 Consult Physician Urgent Consulting Provider: [facility] Consult Reason/Comments: acute chest pain Do you want consulting provider notified?: Yes Primary care physician: Kaila Engle - Discharge Diagnosis(es) (1) Migraine headache Status: Acute (2) Chest pain Status: Acute (3) Headache Status: Acute Hospital Course: Primo Gleason is a 54-year-old gentleman with no significant PMH who presented to the ED complaining of chest discomfort, with an episode of numbness and tingling in the left side of his face up into the periorbital area, after that he developed a moderate to severe headache. Because of the symptoms he was advised by his primary care doctor to come to the emergency room for further evaluation and treatment. On presentation his vitals were stable, WBC 11.7, chemistry wnl, EKG NSR, CXR NAP. He underwent CT head which was wnl. He is a nonsmoker and denies previous history of chest pain or migraine. Pt was admitted to medicine and seen by cardiology. He underwent stress echo which was negative. His migraine resolved after tylenol, magnesium and benadryl. He is discharged in stable condition and recommended to follow up with PCP. Patient Condition at Discharge: Stable Plan - Discharge Summary Discharge Rx Participant: Yes New Discharge Prescriptions: Continue Ibuprofen [Motrin Ib] 400 mg PO Q6H PRN PRN Reason: Headache Acetaminophen Tab [Tylenol] 650 mg PO Q4H PRN PRN Reason: Headache Discharge Medication List Acetaminophen Tab [Tylenol] 650 mg PO Q4H PRN 09/15/19 [History] Ibuprofen [Motrin Ib] 400 mg PO Q6H PRN 09/15/19 [History] Follow up Appointment(s)/Referral(s): Kaila Engle DO [Primary Care Provider] - 3 Days (call for follow up appointment post follow up hospital stay) Patient Instructions/Handouts: Chest Pain (GEN) Activity/Diet/Wound Care/Special Instructions: Confirm cardiology follow-up appointment prior to discharge. Discharge Disposition: HOME SELF-CARE
== END 2019-09-16 17:00 | disposition home or self-care (01) ==
LOC: EC 13:47 → 3SCARD 16:35
PROVIDERS: ADMIT Family Medicine; ATTEND Family Medicine
DX: G43.909 Migraine, unspecified, not intractable, without status migrainosus (principal); R07.89 Other chest pain; E78.5 Hyperlipidemia, unspecified; G25.81 Restless legs syndrome; N28.1 Cyst of kidney, acquired; M54.9 Dorsalgia, unspecified; Z88.8 Allergy status to other drugs, medicaments and biological substances; Z87.09 Personal history of other diseases of the respiratory system; Z90.49 Acquired absence of other specified parts of digestive tract; Z82.3 Family history of stroke; Z82.49 Family history of ischemic heart disease and other diseases of the circulatory system; Z80.9 Family history of malignant neoplasm, unspecified
CPT/HCPCS: 96361; 96374; 96375; 99285; 36415; 93005; 93351; 80053; 83735; 84484 ×2; 85025; 85610; 85730; 71045; 93880; 70450; G0378 ×2; S0183; J1200; J2405; 93306

== ENCOUNTER 2020-02-22 17:12 | Emergency (ER) | payer BC ==
[2020-02-22] MEDS ORDERED: KETOROLAC 15 MG/ML 1 ML VIAL IM STA (17:33)
--- NOTE | 2020-02-22 17:35 | ED ---
General Adult HPI - General Chief complaint: Extremity Problem,Nontraumatic Stated complaint: lt knee pain Time Seen by Provider: 02/22/20 17:29 Source: patient, RN notes reviewed Mode of arrival: wheelchair Limitations: physical limitation - History of Present Illness Initial comments: Patient is a pleasant 54-year-old male presenting to the emergency Department with left knee discomfort. Onset of symptoms was 3 or 4 days ago. Patient states no history of similar symptoms previously. Discomfort is moderate. Discomfort is increased with movement or walking. No trauma. No fever. No redness or swelling. Discomfort is anterior and posterior knee. No other joint is involved. patient did go to chiropractor today without improvement of sympt oms. - Related Data Home Medications Medication Instructions Recorded Confirmed Acetaminophen Tab [Tylenol] 650 mg PO Q4H PRN 09/15/19 09/15/19 Ibuprofen [Motrin Ib] 400 mg PO Q6H PRN 09/15/19 09/15/19 Allergies Allergy/AdvReac Type Severity Reaction Status Date / Time metoclopramide [From Reglan] AdvReac Dyspnea/anx Verified 02/22/20 17:27 iety Review of Systems ROS Statement: Those systems with pertinent positive or pertinent negative responses have been documented in the HPI. ROS Other: All systems not noted in ROS Statement are negative. Constitutional: Denies: fever Eyes: Denies: eye pain ENT: Denies: ear pain Respiratory: Denies: cough, dyspnea Cardiovascular: Denies: chest pain Endocrine: Denies: fatigue Gastrointestinal: Denies: abdominal pain Genitourinary: Denies: dysuria Musculoskeletal: Reports: as per HPI, arthralgia. Denies: back pain Skin: Denies: rash Past Medical History Past Medical History: Hyperlipidemia Additional Past Medical History / Comment(s): asthma (child), RLS, back pain - sees chiropractor, cysts on kidneys History of Any Multi-Drug Resistant Organisms: None Reported Past Surgical History: Adenoidectomy, Cholecystectomy, Hernia Repair, Orthopedic Surgery, Tonsillectomy Additional Past Surgical History / Comment(s): rotator cuff/bicep muscle cyst removed, Past Anesthesia/Blood Transfusion Reactions: Previous Problems w/ Anesthesia Additional Past Anesthesia/Blood Transfusion Reaction / Comment(s): slow to wake Past Psychological History: No Psychological Hx Reported Smoking Status: Never smoker Past Alcohol Use History: None Reported Past Drug Use History: None Reported - Past Family History Mother Family Medical History: Cancer Father Family Medical History: CVA/TIA General Exam Limitations: physical limitation General appearance: alert, in no apparent distress Head exam: Present: normocephalic Eye exam: Present: normal appearance Neck exam: Present: normal inspection Respiratory exam: Present: normal lung sounds bilaterally Cardiovascular Exam: Present: regular rate, normal rhythm GI/Abdominal exam: Present: soft. Absent: tenderness Extremities exam: Present: tenderness (Mild tenderness medial meniscus left knee. There is also some tenderness left popliteal and calf), calf tenderness, other (Knee is stable. No effusion. No erythema or warmth or swelling) Neurological exam: Present: alert Psychiatric exam: Present: normal affect, normal mood Skin exam: Present: normal color Course Vital Signs 02/22/20 02/22/20 17:24 18:20 Temperature 97.8 F Pulse Rate 65 64 Respiratory 17 Rate Blood Pressure 129/81 O2 Sat by Pulse 96 99 Oximetry Medical Decision Making - Medical Decision Making Patient reevaluated and improved following Toradol injection. Patient and family updated on results and need for follow-up. - Radiology Data Radiology results: report reviewed (Ultrasound negative for DVT), image reviewed (Left knee x-ray shows mild osteoarthritis) Disposition Clinical Impression: Arthralgia of left knee Disposition: HOME SELF-CARE Condition: Stable Instructions (If sedation given, give patient instructions): Osteoarthritis (ED), Knee Pain (ED) Additional Instructions: Please follow-up with primary care physician and orthopedics in the next couple of days for recheck. Continue Motrin as needed. Ice to affected area. Return for increased pain, redness, swelling, fever, worsening symptoms or other concerns. Use knee immobilizer. Limit walking on the left knee. Is patient prescribed a controlled substance at d/c from ED?: No Referrals: Kaila Engle DO [Primary Care Provider] - 1-2 days Fernandez Stanford MD [STAFF PHYSICIAN] - 1-2 days Time of Disposition: 19:14
--- NOTE | 2020-02-22 18:13 | XR ---
Left knee HISTORY: Left knee pain 3 views of left knee Bone mineralization, joint spaces and alignment are maintained with some mild joint space loss medial ly. No evident joint effusion. Mild marginal spurring in the medial compartment. IMPRESSION: Mild osteoarthritis.
--- NOTE | 2020-02-22 19:01 | US ---
EXAMINATION TYPE: US venous doppler duplex LE LT DATE OF EXAM: 02/22/2020 5:34 PM COMPARISON: NONE CLINICAL HISTORY: pain. Pain in left knee x 4 days. No hx of DVT. Patient does not take blood thinner s. SIDE PERFORMED: Left TECHNIQUE: The lower extremity deep venous system is examined utilizing real time linear array sonog gabino with graded compression, doppler sonography and color-flow sonography. VESSELS IMAGED: External Iliac Vein (EIV) Common Femoral Vein Deep Femoral Vein Greater Saphenous Vein * Femoral Vein Popliteal Vein Small Saphenous Vein * Proximal Calf Veins (* superficial vessels) Left common femoral, superficial femoral, popliteal veins all compress normally and show no abnormal luminal echoes, venous waveforms are normal Left Leg: No evidence of DVT in veins imaged at this time from prox calf veins to EIV. IMPRESSION: No evident deep venous arthrosis at or above the left knee
[2020-02-22] MEDS ORDERED: ACET/COD 300 MG/30 MG STARTER PACK 6 TAB BTL PO STA (19:11)
[2020-02-22 19:39] VITALS: BP 131/75; PULSE 73; RESP 18; TEMP 98.2
== END 2020-02-22 19:39 | disposition home or self-care (01) ==
LOC: EC 17:12
DX: M25.562 Pain in left knee (principal); Z88.8 Allergy status to other drugs, medicaments and biological substances
CPT/HCPCS: 73562; 93971; 99284; 96372; L1830; J1885

== ENCOUNTER 2020-03-13 09:27 | Emergency (ER) | payer BC ==
[2020-03-13] MEDS ORDERED: MORPHINE SULFATE 4 MG/ML SYRINGE IM STA (09:56)
[2020-03-13] MEDS ORDERED: KETOROLAC 15 MG/ML 1 ML VIAL IM STA (09:56)
--- NOTE | 2020-03-13 10:03 | ED ---
General Adult HPI - General Chief complaint: Extremity Injury, Lower Stated complaint: lt knee pain Time Seen by Provider: 03/13/20 09:39 Source: patient, RN notes reviewed Mode of arrival: wheelchair Limitations: physical limitation - History of Present Illness Initial comments: 54-year-old male presents to the emergency room for left knee pain. Patient reports he has had left knee pain for the past several weeks. He had an MRI performed which showed a meniscus tear. States his pain has been persistent and he is out of his pain medication. Patient is scheduled for surgery in [address] Martínez. Patient reports today he was stepping up into a bathtub and felt a pop in the left knee. States it was painful to bear weight on the left k nee now or to bend it. They state they called orthopedics who recommended they come to the emergency room.Patient has no other complaints at this time including shortness of breath, chest pain, abdominal pain, nausea or vomiting, headache, or visual changes. - Related Data Home Medications Medication Instructions Recorded Confirmed Acetaminophen Tab [Tylenol Tab] 1,000 mg PO Q6HR PRN 03/13/20 03/13/20 HYDROcodone/APAP 5-325MG [[place] 1 tab PO TID PRN 03/13/20 03/13/20 5-325] Previous Rx's Medication Instructions Recorded HYDROcodone/APAP 5-325MG [[place] 1 tab PO Q6HR PRN #10 tab 03/13/20 5-325] Allergies Allergy/AdvReac Type Severity Reaction Status Date / Time metoclopramide [From Reglan] AdvReac Dyspnea/anx Verified 03/13/20 10:10 iety Review of Systems ROS Statement: Those systems with pertinent positive or pertinent negative responses have been documented in the HPI. ROS Other: All systems not noted in ROS Statement are negative. Past Medical History Past Medical History: Hyperlipidemia Additional Past Medical History / Comment(s): asthma (child), RLS, back pain - sees chiropractor, cysts on kidneys History of Any Multi-Drug Resistant Organisms: None Reported Past Surgical History: Adenoidectomy, Cholecystectomy, Hernia Repair, Orthopedic Surgery, Tonsillectomy Additional Past Surgical History / Comment(s): rotator cuff/bicep muscle cyst removed, Past Anesthesia/Blood Transfusion Reactions: Previous Problems w/ Anesthesia Additional Past Anesthesia/Blood Transfusion Reaction / Comment(s): slow to wake Past Psychological History: No Psychological Hx Reported Smoking Status: Never smoker Past Alcohol Use History: None Reported Past Drug Use History: None Reported - Past Family History Mother Family Medical History: Cancer Father Family Medical History: CVA/TIA General Exam Limitations: physical limitation General appearance: alert, in no apparent distress Head exam: Present: atraumatic, normocephalic, normal inspection Eye exam: Present: normal appearance, PERRL, EOMI. Absent: scleral icterus, conjunctival injection, periorbital swelling ENT exam: Present: normal exam, mucous membranes moist Neck exam: Present: normal inspection. Absent: tenderness, meningismus, lymphadenopathy Respiratory exam: Present: normal lung sounds bilaterally. Absent: respiratory distress, wheezes, rales, rhonchi, stridor Cardiovascular Exam: Present: regular rate, normal rhythm, normal heart sounds. Absent: systolic murmur, diastolic murmur, rubs, gallop, clicks Extremities exam: Present: tenderness (Minimal tenderness noted to the anterior aspect of the left knee.), normal capillary refill (Capillary refill less than 2 seconds, DP pulse 2+ in the left lower extremity.). Absent: full ROM (Patient has about 30 flexion of the left knee, full extension.), pedal edema, joint swelling (No appreciable edema of the left knee. No erythema.), calf tenderness (No calf Tenderness, negative Homans sign.), other (Sensation intact left lower extremity.) Course Vital Signs 03/13/20 03/13/20 09:34 12:39 Temperature 97.7 F 97.8 F Pulse Rate 77 62 Respiratory 18 12 Rate Blood Pressure 136/96 107/86 O2 Sat by Pulse 98 96 Oximetry Medical Decision Making - Medical Decision Making Vitals are stable. Patient does have decreased range of motion in the left knee. No erythema or edema. No evidence of infection. Neurovascular status intact. X-ray of the left knee shows mild degenerative spurring without acute osseous abnormality. I did discuss this case with brayan umana who does not recommend any further imaging as they will be doing surgery on regardless. Patient was given several different pain medication. He did have some improvement in pain however continued to have pain with movement of the left knee. Patient refused knee immobilizer. I did write a prescription for crutches. Patient will follow-up on for his surgery and will be given [place] until that time. Disposition Clinical Impression: Knee pain, left Disposition: HOME SELF-CARE Condition: Good Instructions (If sedation given, give patient instructions): Knee Pain (ED) Additional Instructions: Please take [place] for pain. You can take 1 extra strength Tylenol between dosing. Please rest ice and elevate the left knee. Use Gabe wrap. Follow-up with orthopedics for your scheduled surgery on . If pain is worsening he can return to the emergency room. Prescriptions: HYDROcodone/APAP 5-325MG [[place] 5-325] 1 tab PO Q6HR PRN #10 tab PRN Reason: Pain Is patient prescribed a controlled substance at d/c from ED?: No Referrals: Kaila Engle DO [Primary Care Provider] - 1-2 days Time of Disposition: 12:06
[2020-03-13] MEDS ORDERED: HYDROmorphone 0.5 MG/0.5 ML SYRINGE IM STA (10:58)
--- NOTE | 2020-03-13 11:04 | XR ---
EXAMINATION TYPE: XR knee complete LT DATE OF EXAM: 03/13/2020 COMPARISON: 02/22/2020 HISTORY: 54-year-old male pain after fall today TECHNIQUE: 3 views FINDINGS: Mild marginal spurring within the medial and patellofemoral compartments. No acute fracture, subluxat ion, or dislocation. Extensor mechanism is intact. No knee joint effusion or lipohemarthrosis. IMPRESSION: Mild degenerative spurring in the medial and patellofemoral compartments. No acute osseous abnormalit y otherwise seen.
[2020-03-13 12:41] VITALS: BP 107/86; PULSE 62; RESP 12; TEMP 97.8
== END 2020-03-13 12:50 | disposition home or self-care (01) ==
LOC: EC 09:27
DX: S83.207A Unspecified tear of unspecified meniscus, current injury, left knee, initial encounter (principal); M76.892 Other specified enthesopathies of left lower limb, excluding foot; M54.9 Dorsalgia, unspecified; Z88.8 Allergy status to other drugs, medicaments and biological substances; Z98.890 Other specified postprocedural states; X58.XXXA Exposure to other specified factors, initial encounter
CPT/HCPCS: 73562; 99284; 96372 ×3; J2270; J1885; J1170

== ENCOUNTER 2020-03-16 08:00 | Day surgery (SDC) | payer BC ==
[2020-03-14 10:42] VITALS: BMI 35.5
--- NOTE | 2020-03-15 16:08 | CA ---
CARDIOLOGY REPORT DATE OF SURGERY: 03/16/2020 Primo Gleason is a 54-year-old gentleman seen with progressive left knee pain. After we discussed options for treatment, he elected to proceed with arthroscopy. Consent was obtained. PAST MEDICAL HISTORY: Asthma. PAST SURGICAL HISTORY: Herniorrhaphy, tonsillectomy. DAILY MEDICATIONS: [place]. ALLERGIES: NONE. SOCIAL HISTORY: He denies tobacco use. PHYSICAL EVALUATION OF THE LEFT KNEE: Range of motion is zero to 125. Mild effusion. Tenderness, medial joint line. Positive medial Dominic's. Ligaments stable. Hip rotation without pain. Distal neurovascular exam intact. RADIOGRAPHS: Radiographs of the left knee revealed mild osteoarthritic changes. An MRI of the left knee revealed medial meniscal tear and osteoarthritic changes. IMPRESSION: 1. Internal derangement of left knee with medial meniscal tear. 2. Left knee osteoarthritis. 3. Asthma. PLAN: Left knee arthroscopy with partial meniscectomy, partial synovectomy and debridement. MMODL / IJN: [id number] /
[~2020-03-16 08:00] MED LIST changes: -HEPARIN SODIUM,PORCINE 5,000 UNIT/ML 1 ML VIAL SQ ONE; -MIDAZOLAM 2 MG/2 ML VIAL IV PRN; -SCOPOLAMINE 1.5MG/72HR PATCH TRANSDERM ONE
[2020-03-16] MEDS ORDERED: LIDOCAINE 1% (10MG/ML) FOR IV START INTRADERMA ONE (08:29)
[2020-03-16] MEDS: LACTATED RINGERS 1,000 ML IV SCH ×3 (08:30→13:55)
[2020-03-16] MEDS ORDERED: fentaNYL (PF) 50 MCG/ML 2 ML AMP IV ONE (08:57)
[2020-03-16] MEDS ORDERED: PROPOFOL 10 MG/ML 20 ML VIAL IV ONE (09:14)
[2020-03-16] MEDS ORDERED: fentaNYL (PF) 50 MCG/ML 2 ML AMP ONE (09:14)
[2020-03-16] MEDS ORDERED: LIDOCAINE 1% INJ 10MG/ML (20 ML MDV) ONE (09:14)
[2020-03-16] MEDS ORDERED: MIDAZOLAM 2 MG/2 ML VIAL ONE (09:14)
[2020-03-16] MEDS ORDERED: BUPIVACAINE (PF) 0.25% 30 ML VIAL SQ ONE ×2 (09:36→09:54)
--- NOTE | 2020-03-16 10:09 | P.OP ---
Date of Procedure: 03/16/20 Preoperative Diagnosis: Internal derangement left knee Postoperative Diagnosis: 1. Tear medial meniscus left knee 2. Grade 3 chondromalacia medial femoral condyle left knee 3. Reactive synovitis medial, lateral and suprapatellar compartments left knee Procedure(s) Performed: 1. Arthroscopic partial medial meniscectomy left knee 2. Arthroscopic chondroplasty medial femoral condyle left knee 3. Arthroscopic partial synovectomy medial, lateral and suprapatellar compartments left knee Anesthesia: GETA, local Surgeon: Andre Martínez Estimated Blood Loss (ml): 4 Pathology: none sent Condition: stable Disposition: PACU Indications for Procedure: 54-year-old patient seen with progressive left knee pain. After treatment options were discussed, he elected to proceed with arthroscopy. Operative Findings: see description of procedure Description of Procedure: Patient was taken to the operative suite. Patient underwent a general anesthetic by the department of anesthesia. Patient was given preoperative antibiotics. The left lower extremity was placed in a well-padded arthroscopic leg [place]. The left leg was prepped and draped in the normal sterile orthopedic fashion. A lateral parapatellar and suprapatellar incision was made. Trochars were inserted. Arthroscopy was initiated. Suprapatellar pouch revealed diffuse thick reactive synovitis. The patellofemoral joint appeared articulate congruently. There was grade 1 chondromalacia. The scope was guided into the medial gutter. No loose bodies or plica were identified. The scope was then guided into the medial compartment. A medial parapatellar incision was made. Trocar inserted followed by probe. There was a complex tear posterior medial meniscus. There were grade 3 chondromalacia changes of medial femoral condyle with diffuse osteochondral flap tears present. There was thick reactive synovitis anteriorly. I performed a partial medial meniscectomy getting down to stable meniscal tissue. I performed a chondroplasty of the medial femoral condyle getting down to stable osteochondral tissue. I performed a partial synovectomy reactive synovitis. Scope and probe were then guided into the intercondylar notch. Cruciates were identified, probed and found to be stable. The scope and probe were then guided into lateral compartment. Lateral meniscus was probed and found be stable. There was no significant chondromalacia prese nt. There was some reactive synovitis anteriorly. I introduced a motorized shaver and performed a partial synovectomy decompressing the thick reactive synovitis. The shaver was removed. There was good decompression of the synovitis. The scope was in guided back into the suprapatellar compartment. I introduced a motorized shaver into the super patellar compartment. I debrided some piecemeal fragments of meniscus I encountered. I performed a partial synovectomy decompressing reactive synovitis. The shaver was removed. I took one more look on the entire knee, no residual debris. Instruments were now removed from the joint. The joint was infiltrated with .25% Marcaine. Steri- Strips were applied to the portal sites. Sterile dressings were applied. The patient was placed into a ELIZABETH hose. No tourniquet was utilized. The patient was awakened, transferred to a bed and taken to recovery stable satisfactory condition.
[2020-03-16 10:16] VITALS: TEMP 98.1
[2020-03-16] MEDS: HYDROmorphone 0.5 MG/0.5 ML SYRINGE IVP PRN ×4 (10:21→10:44)
[2020-03-16] MEDS ORDERED: MEPERIDINE 50 MG/ML SYRINGE IVP ONE (10:56)
[2020-03-16 14:08] VITALS: BP 146/79; PULSE 68; RESP 18
== END 2020-03-16 14:05 | disposition home or self-care (01) ==
LOC: OR 08:00
PROVIDERS: ATTEND Orthopaedic Surgery
DX: M23.222 Derangement of posterior horn of medial meniscus due to old tear or injury, left knee (principal); M94.262 Chondromalacia, left knee; M65.862 Other synovitis and tenosynovitis, left lower leg; M17.12 Unilateral primary osteoarthritis, left knee; G47.33 Obstructive sleep apnea (adult) (pediatric); Z87.09 Personal history of other diseases of the respiratory system; Z87.19 Personal history of other diseases of the digestive system; Z98.890 Other specified postprocedural states; Z90.89 Acquired absence of other organs; Z79.891 Long term (current) use of opiate analgesic; Z88.8 Allergy status to other drugs, medicaments and biological substances
CPT/HCPCS: 29881; 29876; J2250; J1100; J2175; J0690; J2405; J2001; J3010; J2704; J1170

== ENCOUNTER 2020-04-08 19:59 | Inpatient (IN) | payer BC ==
[2020-04-08] MEDS ORDERED: IPRATROPIUM 0.5 MG/2.5 ML NEBU INHALATION STA (20:19)
[2020-04-08] MEDS ORDERED: SODIUM CHLORIDE 0.9% 1,000 ML IV STA (20:19)
[2020-04-08] MEDS ORDERED: ALBUTEROL NEBULIZED 2.5 MG/3 ML INHALATION STA (20:19)
[2020-04-08] MEDS ORDERED: methylPREDNISolone SOD SUCCI 125 MG/2 ML VIAL IV STA (20:19)
--- NOTE | 2020-04-08 20:21 | ED ---
SOB HPI - General Chief Complaint: Shortness of Breath Stated Complaint: SOB Time Seen by Provider: 04/08/20 20:18 Source: patient, RN notes reviewed, old records reviewed Mode of arrival: ambulatory Limitations: no limitations - History of Present Illness Initial Comments: This is a 52-year-old male DF presented for shortness of breath today. Patient has remote history of asthma but he states he grew out of it. Patient states she was exposed to smoke from cooking earlier tonight and shortness of breath cough and chest tightness persisted. Otherwise patient been feeling well with no chest pain shortness of breath fevers, symptoms were sudden onset tonight secondary to exposure. Otherwise no other complaints no other medical history MD Complaint: shortness of breath, cough, "asthma attack" -: hour(s) Severity: moderate Severity scale (1-10): 5 Consistency: constant Improves With: nothing Worsens With: nothing Known History Of: asthma Context: smoke/fume exposure Associated Symptoms: denies other symptoms Treatments Prior to Arrival: none - Related Data Home Medications Medication Instructions Recorded Confirmed D-Methorphan/PE/Acetaminophen 1 cap PO Q4H PRN MDD 8 CAPS 04/08/20 04/08/20 [Vicks Dayquil Liquicaps] Dm/Acetaminophen/Doxylamine [Vicks 1 cap PO Q4H PRN MDD 8 CAPS 04/08/20 04/08/20 Nyquil Liquicaps] L.acidoph,Paracasei, B.lactis 1 cap PO DAILY 04/08/20 04/08/20 [Probiotic] Allergies Allergy/AdvReac Type Severity Reaction Status Date / Time metoclopramide [From Reglan] AdvReac Dyspnea/anx Verified 04/08/20 20:08 iety Review of Systems ROS Statement: Those systems with pertinent positive or pertinent negative responses have been documented in the HPI. ROS Other: All systems not noted in ROS Statement are negative. Past Medical History Past Medical History: Asthma, Hyperlipidemia Additional Past Medical History / Comment(s): asthma (child), RLS, back pain - sees chiropractor, cysts on kidneys History of Any Multi-Drug Resistant Organisms: None Reported Past Surgical History: Orthopedic Surgery Additional Past Surgical History / Comment(s): rotator cuff/bicep muscle cyst removed, Past Anesthesia/Blood Transfusion Reactions: Previous Problems w/ Anesthesia Additional Past Anesthesia/Blood Transfusion Reaction / Comment(s): slow to wake Past Psychological History: No Psychological Hx Reported Smoking Status: Never smoker Past Alcohol Use History: None Reported Past Drug Use History: None Reported - Past Family History Mother Family Medical History: Cancer Father Family Medical History: CVA/TIA General Exam Limitations: no limitations General appearance: alert, in no apparent distress Head exam: Present: atraumatic, normocephalic, normal inspection Eye exam: Present: normal appearance, PERRL, EOMI. Absent: scleral icterus, conjunctival injection, periorbital swelling ENT exam: Present: normal exam, mucous membranes moist Neck exam: Present: normal inspection. Absent: tenderness, meningismus, lymphadenopathy Respiratory exam: Present: normal lung sounds bilaterally. Absent: respiratory distress, wheezes, rales, rhonchi, stridor Cardiovascular Exam: Present: regular rate, normal rhythm, normal heart sounds. Absent: systolic murmur, diastolic murmur, rubs, gallop, clicks GI/Abdominal exam: Present: soft, normal bowel sounds. Absent: distended, tenderness, guarding, rebound, rigid Extremities exam: Present: normal inspection, full ROM, normal capillary refill. Absent: tenderness, pedal edema, joint swelling, calf tenderness Back exam: Present: normal inspection Neurological exam: Present: alert, oriented X3, CN II-XII intact Psychiatric exam: Present: normal affect, normal mood Skin exam: Present: warm, dry, intact, normal color. Absent: rash Course Vital Signs 04/08/20 04/08/20 04/08/20 20:03 20:32 20:41 Temperature 99.8 F H Pulse Rate 96 99 104 H Respiratory 24 Rate Blood Pressure 124/78 O2 Sat by Pulse 96 Oximetry 04/08/20 04/08/20 04/08/20 22:19 22:23 22:43 Temperature 98.2 F Pulse Rate 84 88 89 Respiratory 18 Rate Blood Pressure 125/63 O2 Sat by Pulse 96 Oximetry - Reevaluation(s) Reevaluation #1: 04/08/20 21:21 Records reviewed Reevaluation #2: 04/08/20 21:21 I'll be improved here in the ER Patient found a positive for coronavirus here in the ER Medical Decision Making - Medical Decision Making 54 male positive for coronavirus we will admit for supportive care - Lab Data Result diagrams: 04/08/20 20:51 04/08/20 20:51 Lab Results 04/08/20 04/08/20 04/08/20 Range/Units 20:51 20:51 20:51 WBC 8.7 (3.8-10.6) k/uL RBC 5.13 (4.30-5.90) m/uL Hgb 14.4 (13.0-17.5) gm/dL Hct 44.7 (39.0-53.0) % MCV 87.1 (80.0-100.0) fL MCH 28.0 (25.0-35.0) pg MCHC 32.2 (31.0-37.0) g/dL RDW 13.0 (11.5-15.5) % Plt Count 346 (150-450) k/uL Neutrophils % 76 % Lymphocytes % 15 % Monocytes % 7 % Eosinophils % 1 % Basophils % 1 % Neutrophils # 6.6 (1.3-7.7) k/uL Lymphocytes # 1.3 (1.0-4.8) k/uL Monocytes # 0.6 (0-1.0) k/uL Eosinophils # 0.1 (0-0.7) k/uL Basophils # 0.1 (0-0.2) k/uL PT 10.0 (9.0-12.0) sec INR 1.0 (<1.2) APTT 25.6 (22.0-30.0) sec Sodium 135 L (137-145) mmol/L Potassium 4.3 (3.5-5.1) mmol/L Chloride 104 (98-107) mmol/L Carbon Dioxide 23 (22-30) mmol/L Anion Gap 8 mmol/L BUN 20 (9-20) mg/dL Creatinine 0.77 (0.66-1.25) mg/dL Est GFR (CKD-EPI)AfAm >90 (>60 ml/min/1.73 sqM) Est GFR (CKD-EPI)NonAf >90 (>60 ml/min/1.73 sqM) Glucose 110 H (74-99) mg/dL Plasma Lactic Acid J Luis (0.7-2.0) mmol/L Calcium 9.3 (8.4-10.2) mg/dL Magnesium 2.3 (1.6-2.3) mg/dL Total Bilirubin 0.6 (0.2-1.3) mg/dL AST 32 (17-59) U/L ALT 26 (4-49) U/L Alkaline Phosphatase 64 (38-126) U/L Troponin I (0.000-0.034) ng/mL NT-Pro-B Natriuret Pep pg/mL Total Protein 6.8 (6.3-8.2) g/dL Albumin 3.8 (3.5-5.0) g/dL Coronavirus (PCR) (Not Detectd) 04/08/20 04/08/20 04/08/20 Range/Units 20:51 20:51 20:51 WBC (3.8-10.6) k/uL RBC (4.30-5.90) m/uL Hgb (13.0-17.5) gm/dL Hct (39.0-53.0) % MCV (80.0-100.0) fL MCH (25.0-35.0) pg MCHC (31.0-37.0) g/dL RDW (11.5-15.5) % Plt Count (150-450) k/uL Neutrophils % % Lymphocytes % % Monocytes % % Eosinophils % % Basophils % % Neutrophils # (1.3-7.7) k/uL Lymphocytes # (1.0-4.8) k/uL Monocytes # (0-1.0) k/uL Eosinophils # (0-0.7) k/uL Basophils # (0-0.2) k/uL PT (9.0-12.0) sec INR (<1.2) APTT (22.0-30.0) sec Sodium (137-145) mmol/L Potassium (3.5-5.1) mmol/L Chloride (98-107) mmol/L Carbon Dioxide (22-30) mmol/L Anion Gap mmol/L BUN (9-20) mg/dL Creatinine (0.66-1.25) mg/dL Est GFR (CKD-EPI)AfAm (>60 ml/min/1.73 sqM) Est GFR (CKD-EPI)NonAf (>60 ml/min/1.73 sqM) Glucose (74-99) mg/dL Plasma Lactic Acid J Luis 1.1 (0.7-2.0) mmol/L Calcium (8.4-10.2) mg/dL Magnesium (1.6-2.3) mg/dL Total Bilirubin (0.2-1.3) mg/dL AST (17-59) U/L ALT (4-49) U/L Alkaline Phosphatase (38-126) U/L Troponin I <0.012 (0.000-0.034) ng/mL NT-Pro-B Natriuret Pep 13 pg/mL Total Protein (6.3-8.2) g/dL Albumin (3.5-5.0) g/dL Coronavirus (PCR) (Not Detectd) 04/08/20 Range/Units 21:42 WBC (3.8-10.6) k/uL RBC (4.30-5.90) m/uL Hgb (13.0-17.5) gm/dL Hct (39.0-53.0) % MCV (80.0-100.0) fL MCH (25.0-35.0) pg MCHC (31.0-37.0) g/dL RDW (11.5-15.5) % Plt Count (150-450) k/uL Neutrophils % % Lymphocytes % % Monocytes % % Eosinophils % % Basophils % % Neutrophils # (1.3-7.7) k/uL Lymphocytes # (1.0-4.8) k/uL Monocytes # (0-1.0) k/uL Eosinophils # (0-0.7) k/uL Basophils # (0-0.2) k/uL PT (9.0-12.0) sec INR (<1.2) APTT (22.0-30.0) sec Sodium (137-145) mmol/L Potassium (3.5-5.1) mmol/L Chloride (98-107) mmol/L Carbon Dioxide (22-30) mmol/L Anion Gap mmol/L BUN (9-20) mg/dL Creatinine (0.66-1.25) mg/dL Est GFR (CKD-EPI)AfAm (>60 ml/min/1.73 sqM) Est GFR (CKD-EPI)NonAf (>60 ml/min/1.73 sqM) Glucose (74-99) mg/dL Plasma Lactic Acid J Luis (0.7-2.0) mmol/L Calcium (8.4-10.2) mg/dL Magnesium (1.6-2.3) mg/dL Total Bilirubin (0.2-1.3) mg/dL AST (17-59) U/L ALT (4-49) U/L Alkaline Phosphatase (38-126) U/L Troponin I (0.000-0.034) ng/mL NT-Pro-B Natriuret Pep pg/mL Total Protein (6.3-8.2) g/dL Albumin (3.5-5.0) g/dL Coronavirus (PCR) Detected A (Not Detectd) - EKG Data -: EKG Interpreted by Me (EKG shows sinus rhythm 88 SD 140 QRS 78 QTc 416) - Radiology Data Radiology results: report reviewed (Chest x-rays negative for acute disease), image reviewed Disposition Clinical Impression: COVID-19, Fever Disposition: ADMITTED IP TO THIS HOSP Condition: Fair Is patient prescribed a controlled substance at d/c from ED?: No
[2020-04-08 21:05] LABS: Basophils # (A) 0.1 k/uL (0-0.2); Basophils % (A) 1 %; Eosinophils # (A) 0.1 k/uL (0-0.7); Eosinophils % (A) 1 %; HCT 44.7 % (39.0-53.0); HGB 14.4 gm/dL (13.0-17.5); Lymphocytes # (A) 1.3 k/uL (1.0-4.8); Lymphocytes % (A) 15 %; MCHC 32.2 g/dL (31.0-37.0); MCV 87.1 fL (80.0-100.0); Mean Platelet Volume 7.4; Monocytes # (A) 0.6 k/uL (0-1.0); Monocytes % (A) 7 %; Neutrophils # (A) 6.6 k/uL (1.3-7.7); Neutrophils % (A) 76 %; Platelet Count 346 k/uL (150-450); RBC 5.13 m/uL (4.30-5.90); WBC 8.7 k/uL (3.8-10.6)
[2020-04-08 21:10] LABS: Partial Thromboplastin Time 25.6 sec (22.0-30.0)
[2020-04-08 21:11] LABS: African American GFR (CKD) >90 (>60 ml/min/1.73 sqM); Anion Gap 8 mmol/L; Blood Urea Nitrogen 20 mg/dL (9-20); Calcium 9.3 mg/dL (8.4-10.2); Carbon Dioxide 23 mmol/L (22-30); Chloride 104 mmol/L (98-107); Glucose 110 mg/dL (74-99); Magnesium 2.3 mg/dL (1.6-2.3); Non-African American GFR(CKD) >90 (>60 ml/min/1.73 sqM); Potassium 4.3 mmol/L (3.5-5.1); Sodium 135 mmol/L (137-145)
[2020-04-08 21:12] LABS: ALT 26 U/L (4-49); AST 32 U/L (17-59); Albumin 3.8 g/dL (3.5-5.0); Alkaline Phosphatase 64 U/L (38-126); Total Bilirubin 0.6 mg/dL (0.2-1.3); Total Protein 6.8 g/dL (6.3-8.2)
--- NOTE | 2020-04-08 21:21 | XR ---
EXAMINATION TYPE: XR chest 2V DATE OF EXAM: 04/08/2020 COMPARISON: 09/15/2019 HISTORY: Difficulty breathing TECHNIQUE: FINDINGS: There is some interstitial infiltrates and atelectasis in the mid and lower lung naranjo. He art size is normal. There are no hilar masses. There is no heart failure. Bony thorax is intact. Ther e is deformity of the left first rib that could be developmental. IMPRESSION: There is new mild subsegmental atelectasis and interstitial density compared to old exam. Inspiration decreased.
[2020-04-08] MEDS ORDERED: IPRATROPIUM-ALBUTEROL 3 ML NEB INHALATION STA (22:12)
[2020-04-08] MEDS ORDERED: ACETAMINOPHEN TAB 325 MG TAB PO PRN (22:29)
[2020-04-08] MEDS ORDERED: PNEUMONIA PROTOCOL UTILIZED 1 EACH MISC PO PRN (22:29)
[2020-04-09] MEDS ORDERED: ALBUTEROL HFA INHALER INHALATION SCH (02:00)
--- NOTE | 2020-04-09 07:40 | XR ---
EXAMINATION TYPE: XR chest 1V DATE OF EXAM: 04/09/2020 HISTORY: Shortness of breath. COMPARISON: 04/08/2020 TECHNIQUE: Single view of the chest is submitted. FINDINGS: Demonstrated are scattered senescent parenchymal change. Perihilar infiltrates persist although may be some mildly improved. Correlate clinically and progress studies are advised. The heart is stable. Hilar and mediastinal structures are within normal limits. Degenerative changes are seen of the dorsal spine. IMPRESSION: 1. Perihilar infiltrates persist although may be some mildly improved. Correlate clinically and prog ress studies are advised.
[2020-04-09] MEDS: ALBUTEROL HFA INHALER INHALATION SCH ×3 (08:20→20:50)
[2020-04-09] MEDS: ENOXAPARIN 40 MG/0.4 ML SYRINGE SQ SCH (08:30)
[2020-04-09 11:48] LABS: Ferritin 448.1 ng/mL (22.0-322.0)
--- NOTE | 2020-04-09 14:55 | P.HPIM ---
History of Present Illness patient is a pleasant 54-year-old male came in with complaints of shortness of breath. Patient the is found to have Covid 19. Chest x-ray showing some infiltrate consistent with Covid 19 patient's symptoms started as mild sore thro at lately lower a week ago. Since Friday patient started having shortness of breath much worse yesterday came to ER. Patientheld like he has an asthmatic attack. Patient is still getting short of breath with minimal exertion patient's saturationsare bit low although patient is not requiring any oxygen. Patient will be started on Decadron with consulted infectious disease will be monitored tonight. Review of Systems REVIEW OF SYSTEMS: CONSTITUTIONAL: No fever, no malaise, no fatigue. HEENT: No recent visual problems or hearing problems. Denied any sore throat. CARDIOVASCULAR: No chest pain, orthopnea, PND, no palpitations, no syncope. PULMONARY: as mentioned in HPI GASTROINTESTINAL: No diarrhea, no nausea, no vomiting, no abdominal pain. NEUROLOGICAL: No headaches, no weakness, no numbness. HEMATOLOGICAL: Denies any bleeding or petechiae. GENITOURINARY: Denies any burning micturition, frequency, or urgency. MUSCULOSKELETAL/RHEUMATOLOGICAL: Denies any joint pain, swelling, or any muscle pain. ENDOCRINE: Denies any polyuria or polydipsia. The rest of the 14-point review of systems is negative. Past Medical History Past Medical History: Asthma, Hyperlipidemia Additional Past Medical History / Comment(s): asthma (child), RLS, back pain - sees chiropractor, cysts on kidneys History of Any Multi-Drug Resistant Organisms: None Reported Past Surgical History: Cholecystectomy, Hernia Repair, Orthopedic Surgery Additional Past Surgical History / Comment(s): rt rotator cuff, right hand cyst removed, herniax3 2 inguinal and 1 abdominal. Past Anesthesia/Blood Transfusion Reactions: Previous Problems w/ Anesthesia Additional Past Anesthesia/Blood Transfusion Reaction / Comment(s): slow to wake Past Psychological History: No Psychological Hx Reported Smoking Status: Never smoker Past Alcohol Use History: None Reported Past Drug Use History: None Reported - Past Family History Mother Family Medical History: Cancer Additional Family Medical History / Comment(s): lung cancer mets to brain. Father Family Medical History: CVA/TIA Medications and Allergies Home Medications Medication Instructions Recorded Confirmed Type D-Methorphan/PE/Acetaminophen 1 cap PO Q4H PRN MDD 8 CAPS 04/08/20 04/08/20 History [Vicks Dayquil Liquicaps] Dm/Acetaminophen/Doxylamine [Vicks 1 cap PO Q4H PRN MDD 8 CAPS 04/08/20 04/08/20 History Nyquil Liquicaps] L.acidoph,Paracasei, B.lactis 1 cap PO DAILY 04/08/20 04/08/20 History [Probiotic] Allergies Allergy/AdvReac Type Severity Reaction Status Date / Time metoclopramide [From Reglan] AdvReac Dyspnea/anx Verified 04/08/20 20:08 iety Physical Exam Vitals: Vital Signs Temp Pulse Pulse Resp BP BP Pulse Ox 04/09/20 11:59 97.5 F L 65 17 117/66 94 L 04/09/20 04:14 98.1 F 69 20 128/71 96 04/09/20 00:10 98.6 F 87 18 131/65 95 04/08/20 22:43 98.2 F 89 18 125/63 96 04/08/20 22:23 88 04/08/20 22:19 84 04/08/20 20:41 104 H 04/08/20 20:32 99 04/08/20 20:03 99.8 F H 96 24 124/78 96 Intake and Output 04/08/20 04/09/20 04/09/20 22:59 06:59 14:59 Intake Total 220 Balance 220 Intake: Oral 220 Other: Voiding Method Toilet # Voids 1 Weight 92.533 kg 92.533 kg PHYSICAL EXAMINATION: GENERAL: The patient is alert and oriented x3, not in any acute distress. Well developed, well nourished. HEENT: Pupils are round and equally reacting to light. EOMI. No scleral icterus. No conjunctival pallor. Normocephalic, atraumatic. No pharyngeal erythema. No thyromegaly. CARDIOVASCULAR: S1 and S2 present. No murmurs, rubs, or gallops. PULMONARY: Chest is clear to auscultation, no wheezing or crackles. ABDOMEN: Soft, nontender, nondistended, normoactive bowel sounds. No palpable organomegaly. MUSCULOSKELETAL: No joint swelling or deformity. EXTREMITIES: No cyanosis, clubbing, or pedal edema. NEUROLOGICAL: Gross neurological examination did not reveal any focal deficits. SKIN: No rashes. Note: Because of COVID 19 isolation, some of the history and physical exam findings are indirect and obtained from nursing staff, and other physician examinations to avoid unnecessary contact with the patient. Results CBC & Chem 7: 04/08/20 20:51 04/08/20 20:51 Labs: Abnormal Lab Results - Last 24 Hours (Table) 04/08/20 04/08/20 04/08/20 Range/Units 20:51 21:42 22:51 Sodium 135 L (137-145) mmol/L Glucose 110 H (74-99) mg/dL Ferritin 448.1 H (22.0-322.0) ng/mL Lactate Dehydrogenase 804 H (313-618) U/L C-Reactive Protein 35.0 H (<10.0) mg/L Coronavirus (PCR) Detected A (Not Detectd) Thrombosis Risk Factor Assmnt - Choose All That Apply Any of the Below Risk Factors Present?: Yes Each Factor Represents 1 point: Age 41-60 years, Obesity (BMI >25) Other Risk Factors: No Other congenital or acquired thrombophilia - If yes, enter type in comment: No Thrombosis Risk Factor Assessment Total Risk Factor Score: 2 Thrombosis Risk Factor Assessment Level: Low Risk Assessment and Plan Plan: -shortness of breath: Secondary to Covid 19 infection patient was started on Decadron supportive care, IV fluids. We'll order labs for inflammatory markers. -hyperlipidemia DVT prophylaxis with Lovenox
[2020-04-09] MEDS: dexAMETHasone 2 MG TAB PO SCH (16:50)
--- NOTE | 2020-04-09 22:26 | P.CONS ---
History of Present Illness - Reason for Consult Consult date: 04/09/20 Covid 19 infection Requesting physician: Lili Headley - Chief Complaint Shortness of breath 1 day - History of Present Illness Patient is a 54 year male presenting to the ER which accompanies and increasing shortness of breath, symptom initially started about a week ago and has been mostly with a sore throat patient did have a cough which is dry in nature and mild in intensity denies having any pleuritic chest pain patient started having increasing shortness of breath that is concerned him and see present at the hospital patient denies having any fever or any chills and denies having any sick contacts as the patient is currently on for the last 2 months after his left knee surgery, on arrival to the repeated have low-grade fever of 99.7 she was not hypoxic patient did have a normal white count with no lymphopenia d-dimer is normal, liver enzymes are normal patient did have a CRP of 35 pro-calcitonin is normal, avery PCR was positive, chest x-ray revealed new mild subsegmental atelectasis compared to old exam patient has been admitted to the hospital, patient was started on Lovenox Decadron infectious disease was consulted for further management Review of Systems Positive point has been mentioned in the HPI rest of the systems are negative Past Medical History Past Medical History: Asthma, Hyperlipidemia Additional Past Medical History / Comment(s): asthma (child), RLS, back pain - sees chiropractor, cysts on kidneys History of Any Multi-Drug Resistant Organisms: None Reported Past Surgical History: Orthopedic Surgery Additional Past Surgical History / Comment(s): rotator cuff/bicep muscle cyst removed, Past Anesthesia/Blood Transfusion Reactions: Previous Problems w/ Anesthesia Additional Past Anesthesia/Blood Transfusion Reaction / Comm: slow to wake Past Psychological History: No Psychological Hx Reported Smoking Status: Never smoker Past Alcohol Use History: None Reported Past Drug Use History: None Reported - Past Family History Mother Family Medical History: Cancer Additional Family Medical History / Comment(s): lung cancer mets to brain. Father Family Medical History: CVA/TIA Medications and Allergies Home Medications Medication Instructions Recorded Confirmed Type D-Methorphan/PE/Acetaminophen 1 cap PO Q4H PRN MDD 8 CAPS 04/08/20 04/08/20 History [Vicks Dayquil Liquicaps] Dm/Acetaminophen/Doxylamine [Vicks 1 cap PO Q4H PRN MDD 8 CAPS 04/08/20 04/08/20 History Nyquil Liquicaps] L.acidoph,Paracasei, B.lactis 1 cap PO DAILY 04/08/20 04/08/20 History [Probiotic] Allergies Allergy/AdvReac Type Severity Reaction Status Date / Time metoclopramide [From Reglan] AdvReac Dyspnea/anx Verified 04/08/20 20:08 iety Physical Exam Vitals: Vital Signs Temp Pulse Pulse Resp BP BP Pulse Ox 04/09/20 21:17 98.9 F 63 17 114/65 94 L 04/09/20 20:51 94 L 04/09/20 20:00 16 95 04/09/20 15:29 95 04/09/20 11:59 97.5 F L 65 17 117/66 94 L 04/09/20 04:14 98.1 F 69 20 128/71 96 04/09/20 00:10 98.6 F 87 18 131/65 95 04/08/20 22:43 98.2 F 89 18 125/63 96 Intake and Output 04/09/20 04/09/20 04/09/20 06:59 14:59 22:59 Intake Total 220 Balance 220 Intake: Oral 220 Other: Voiding Method Toilet Toilet # Voids 1 1 Weight 92.533 kg GENERAL DESCRIPTION: Middle-aged male lying in bed, no distress. No tachypnea or accessory muscle of respiration use. HEENT: Shows Pallor , no scleral icterus. Oral mucous membrane is dry. No pharyngeal erythema or thrush NECK: Trachea central, no thyromegaly. LUNGS: Unlabored breathing. Decreased intensity of breath sounds. No wheeze or crackle. HEART: S1, S2, regular rate and rhythm. No loud murmur ABDOMEN: Soft, no tenderness , guarding or rigidity, no organomegaly EXTREMITIES: No edema of feet. SKIN: No rash, no masses palpable. NEUROLOGICAL: The patient is awake, alert, oriented x3, mood and affect normal. Results CBC & Chem 7: 04/08/20 20:51 04/08/20 20:51 Labs: Abnormal Lab Results - Last 24 Hours (Table) 04/08/20 Range/Units 22:51 Ferritin 448.1 H (22.0-322.0) ng/mL Lactate Dehydrogenase 804 H (313-618) U/L C-Reactive Protein 35.0 H (<10.0) mg/L Assessment and Plan Assessment: 1-patient presented to hospital with increasing shortness of breath in this patient did not have any fever hypoxemia no lymphopenia liver enzymes are normal and d-dimer was negative chest x-ray with mostly atelectasis rather than groundglass opacities with a pathognomonic for acute Covid 19 infection (1) COVID-19 Current Visit: Yes Status: Acute Code(s): U07.1 - COVID-19 SNOMED Code(s): 080125257 Plan: 1- repeat chest x-ray in the morning 2-repeat extremity markers 3-continue with the Lovenox Decadron , does not meet criteria for Remdisivir We will follow on clinical condition and cultures to further adjust medication if needed Thank you for this consultation will follow this patient with you Time with Patient: Greater than 30
[2020-04-09] MEDS ORDERED: AZITHROMYCIN 500 MG in SODIUM CHLORIDE 0.9% 250 ML IVPB STA (22:27)
[2020-04-10 06:18] LABS: Basophils # (A) 0.1 k/uL (0-0.2); Basophils % (A) 0 %; Eosinophils % (A) 0 %; HCT 41.4 % (39.0-53.0); HGB 13.7 gm/dL (13.0-17.5); Lymphocytes # (A) 1.1 k/uL (1.0-4.8); Lymphocytes % (A) 7 %; MCH 28.7 pg (25.0-35.0); MCHC 33.2 g/dL (31.0-37.0); MCV 86.6 fL (80.0-100.0); Mean Platelet Volume 7.4; Monocytes # (A) 0.8 k/uL (0-1.0); Monocytes % (A) 5 %; Neutrophils # (A) 12.7 k/uL (1.3-7.7); Neutrophils % (A) 85 %; Platelet Count 423 k/uL (150-450); RBC 4.78 m/uL (4.30-5.90); RDW 12.9 % (11.5-15.5)
[2020-04-10] MEDS: ALBUTEROL HFA INHALER INHALATION SCH ×3 (08:10→19:50)
[2020-04-10] MEDS: dexAMETHasone 2 MG TAB PO SCH (09:10)
[2020-04-10] MEDS: AZITHROMYCIN 500 MG TAB PO SCH (09:10)
[2020-04-10] MEDS: ENOXAPARIN 40 MG/0.4 ML SYRINGE SQ SCH (09:11)
[2020-04-10 10:13] LABS: African American GFR (CKD) 113.4 (60.0-200.0); Albumin 4.4 g/dL (3.80-4.90); Albumin/Globulin Ratio 2.1 (1.60-3.17); Anion Gap 11.7 mmol/L (4.00-12.00); BUN/Creat Ratio 18.89 Ratio (12.00-20.00); C Reactive Protein 2.4 mg/dL (0.0-0.8); Calcium 9.4 mg/dL (8.7-10.3); Carbon Dioxide 22.3 mmol/L (21.6-31.8); Globulin 2.1 g/dL (1.6-3.3); Non-African American GFR(CKD) 97.9 (60.0-200.0); Total Bilirubin 0.2 mg/dL (0.3-1.2); Total Protein 6.5 g/dL (6.2-8.2)
--- NOTE | 2020-04-10 10:26 | XR ---
EXAMINATION TYPE: XR chest 1V portable DATE OF EXAM: 04/10/2020 COMPARISON: Prior chest x-ray 04/09/2020 HISTORY: Pneumonia TECHNIQUE: Single frontal view of the chest is obtained. FINDINGS: There is some patchy areas of increased density bilaterally within the lungs as on prior e xam. No evident pneumothorax or pleural effusion. Right hemidiaphragm remains elevated. Apical pleura l thickening on the left is unchanged. Bones are stable. IMPRESSION: Correlate for pneumonia, atelectasis.
--- NOTE | 2020-04-10 13:08 | P.PN ---
Subjective Progress Note Date: 04/10/20 This is a 54-year-old gentleman admitted with shortness of breath, secondary to acute Covid-19 infection/pneumonia. Maintained on Zithromax, Decadron. Inflammatory markers noted. Continues on Lovenox for DVT prophylaxis. Afebrile. Maintaining O2 sats in the 90s on room air. Reports difficulty with deep breathing. Denies chest pain, palpitations. Chest x-ray today reporting patchy areas of increased density bilaterally within the lungs as seen on prior exam correlate for pneumonia, atelectasis. Objective - Vital Signs Vital signs: Vital Signs Temp 97.9 F 04/10/20 05:00 Pulse 54 L 04/10/20 05:00 Resp 17 04/10/20 05:00 BP 107/56 04/10/20 05:00 Pulse Ox 95 04/10/20 05:00 Intake & Output 04/09/20 04/10/20 04/10/20 18:59 06:59 18:59 Intake Total 220 1150 Balance 220 1150 Intake: Intake, IV Titration 250 Amount Azithromycin 500 mg In 250 Sodium Chloride 0.9% 250 ml @ 250 mls/hr IVPB ONCE STA Rx#:[id number] Oral 220 900 Other: Voiding Method Toilet # Voids 1 0 # Bowel Movements 0 - Exam PHYSICAL EXAM: VITAL SIGNS: [As above] GENERAL: Alert and oriented 3, Sitting up in bed,NAD HEENT: Conjunctivae normal. eyes normal. Oral mucosa moist. NECK: No JVD. No thyroid enlargement. CARDIOVASCULAR: S1, S2 regular.No murmur RESPIRATION: Breath sounds diminished in the bases. No rhonchi or crackles. No wheezing ABDOMEN: Soft, nontender . No guarding. no masses palpable. Bowel sounds heard. LEGS: No edema. no swelling NERVOUS SYSTEM: Cranial N 2-12 grossly normal. Moves all 4 limbs. No focal deficits. Strength and sensation grossly intact. Skin: Warm and dry, no rash - Labs CBC & Chem 7: 04/10/20 05:21 04/10/20 05:21 Labs: Abnormal Lab Results - Last 24 Hours (Table) 04/08/20 04/09/20 04/10/20 Range/Units 22:51 15:42 05:21 WBC 15.0 H (3.8-10.6) k/uL Neutrophils # 12.7 H (1.3-7.7) k/uL Ferritin 448.1 H 467.2 H (22.0-322.0) ng/mL Microbiology - Last 24 Hours (Table) 04/08/20 23:27 Blood Culture - Preliminary Blood No Growth after 24 hours Assessment and Plan Assessment: Shortness of breath secondary to Acute Covid-19 infection Leukocytosis secondary to the above History of asthma as a child Plan: Continue current medication regime ,monitoring and symptomatic treatment. Maintain antibiotics, IV fluid hydration, steroids, Lovenox. Vitamin D, vitamin C and zinc added to med regimen. updated via phone at bedside. Maintain supportive care. The impression and plan of care has been dictated as directed. : I performed a history and examination of this patient, discussed the same with the dictator. I agree with the dictator's note ,documented as a scribe. Any additional findings or plans will be noted.
[2020-04-10] MEDS: ASCORBIC ACID 500 MG TAB PO SCH (13:17)
[2020-04-10] MEDS: ZINC SULFATE 220 MG CAP PO SCH (13:18)
[2020-04-10] MEDS: CHOLECALCIFEROL 1,000 UNIT TAB PO SCH (13:18)
[2020-04-10 13:52] VITALS: RESP 18
--- NOTE | 2020-04-11 04:45 | PN ---
PROGRESS NOTE DATE OF SERVICE: 04/10/2020 REASON FOR FOLLOWUP: COVID-19 infection. INTERVAL HISTORY: The patient is currently afebrile. The patient has been breathing comfortably on room air. Still complaining of unable to take deep breath, but no chest pain. Cough but no worsening. No nausea, no vomiting. No abdominal pain, no diarrhea. PHYSICAL EXAMINATION: Blood pressure 112/57, pulse of 73, temperature 97.9. He is 94% on room air. General description is a middle-aged male lying in bed in no distress. RESPIRATORY SYSTEM: Unlabored breathing with decreased intensity of breath sounds. No wheeze. HEART: S1, S2. Regular rate and rhythm. ABDOMEN: Soft, no tenderness. EXTREMITIES: No edema of feet. LABS: Hemoglobin is 13.7, white count of 15, neutrophil count is elevated. LDH is down. CRP is down. DIAGNOSTIC IMPRESSION AND PLAN: Patient admitted to the hospital with increasing shortness of breath, concern for acute COVID-19 infection in this patient with no significant hypoxemia. The patient seemed to have shown overall clinical improvement with Zithromax, dexamethasone, Lovenox to continue. Will monitor his clinical course closely. MMODL / IJN: [id number] /
[2020-04-11 06:12] VITALS: BP 120/70; PULSE 52; TEMP 97.8
[2020-04-11] MEDS: ALBUTEROL HFA INHALER INHALATION SCH ×2 (07:26→11:16)
[2020-04-11] MEDS: AZITHROMYCIN 500 MG TAB PO SCH (09:36)
[2020-04-11] MEDS: ENOXAPARIN 40 MG/0.4 ML SYRINGE SQ SCH (09:36)
[2020-04-11] MEDS: ASCORBIC ACID 500 MG TAB PO SCH (09:36)
[2020-04-11] MEDS: ZINC SULFATE 220 MG CAP PO SCH (09:36)
[2020-04-11] MEDS: CHOLECALCIFEROL 1,000 UNIT TAB PO SCH (09:36)
[2020-04-11] MEDS: dexAMETHasone 2 MG TAB PO SCH (09:36)
--- NOTE | 2020-04-11 10:14 | P.DS ---
Providers Date of admission: 04/08/20 22:29 Expected date of discharge: 04/11/20 Attending physician: Marcos Engle MD Consults: 04/08/20 22:29 Consult Physician Routine Consulting Provider: Manjula Kiser Consult Reason/Comments: covid Do you want consulting provider notified?: Yes Primary care physician: Kaila Kadie [facility] Course: Final Diagnoses: Shortness of breath secondary to Acute Covid Pneumonitis Leukocytosis secondary to the above History of asthma as a child Hospital course: This is a pleasant 54-year-old male came in with complaints of shortness of breath. Patient the is found to have Covid 19. Chest x-ray showing some infiltrate consistent with Covid 19 patient's symptoms started as mild sore throat lately lower a week ago. Since Friday patient started having shortness of breath much worse yesterday came to ER. Patientheld like he has an asthmatic attack. Patient is still getting short of breath with minimal exertion patient's saturationsare bit low although patient is not requiring any oxygen. Patient will be started on Decadron with consulted infectious disease will be monitored tonight. Maintained on antibiotics, Decadron, vitamin C, vitamin D ,zinc and Lovenox. Significant clinical improvement. Oxygen saturations have continued to improve into the high 90s on room air. Patient is being discharged home in a stable condition with guarded prognosis. Instructed to complete his quarantine period of 2 weeks. The impression and plan of care has been dictated as directed. : I performed a history and examination of this patient, discussed the same with the dictator. I agree with the dictator's note ,documented as a scribe. Any additional findings or plans will be noted. Patient Condition at Discharge: Stable Plan - Discharge Summary New Discharge Prescriptions: New Zinc Sulfate [Orazinc] 220 mg PO DAILY #30 cap dexAMETHasone [Hexadrol] See Taper PO DAILY #12 tab Albuterol Inhaler [Ventolin Hfa Inhaler] 2 puff INHALATION RT-TID #1 inh Azithromycin [Zithromax] 500 mg PO DAILY #2 tab Aspirin EC [Ecotrin Low Dose] 81 mg PO DAILY 30 Days #30 tablet. Ascorbic Acid [Vitamin C] 2,000 mg PO DAILY 30 Days tab Cholecalciferol [Vitamin D3 (25 Mcg = 1000 Iu)] 2,000 unit PO DAILY 30 Days tab Continue L.acidoph,Paracasei, B.lactis [Probiotic] 1 cap PO DAILY Dm/Acetaminophen/Doxylamine [Vicks Nyquil Liquicaps] 1 cap PO Q4H PRN MDD 8 CAPS PRN Reason: Cold Symptoms D-Methorphan/PE/Acetaminophen [Vicks Dayquil Liquicaps] 1 cap PO Q4H PRN MDD 8 CAPS PRN Reason: Cold Symptoms Discharge Medication List D-Methorphan/PE/Acetaminophen [Vicks Dayquil Liquicaps] 1 cap PO Q4H PRN MDD 8 CAPS 04/08/20 [History] Dm/Acetaminophen/Doxylamine [Vicks Nyquil Liquicaps] 1 cap PO Q4H PRN MDD 8 CAPS 04/08/20 [History] L.acidoph,Paracasei, B.lactis [Probiotic] 1 cap PO DAILY 04/08/20 [History] Albuterol Inhaler [Ventolin Hfa Inhaler] 2 puff INHALATION RT-TID #1 inh 04/11/20 [Rx] Ascorbic Acid [Vitamin C] 2,000 mg PO DAILY 30 Days tab 04/11/20 [Rx] Aspirin EC [Ecotrin Low Dose] 81 mg PO DAILY 30 Days #30 tablet. 04/11/20 [Rx] Azithromycin [Zithromax] 500 mg PO DAILY #2 tab 04/11/20 [Rx] Cholecalciferol [Vitamin D3 (25 Mcg = 1000 Iu)] 2,000 unit PO DAILY 30 Days tab 04/11/20 [Rx] Zinc Sulfate [Orazinc] 220 mg PO DAILY #30 cap 04/11/20 [Rx] dexAMETHasone [Hexadrol] See Taper PO DAILY #12 tab 04/11/20 [Rx] Follow up Appointment(s)/Referral(s): Marcos Engle MD [STAFF PHYSICIAN] - 3 Days Activity/Diet/Wound Care/Special Instructions: complete quarantine for total of 2 weeks
== END 2020-04-11 11:59 | disposition home or self-care (01) | DRG 177 ==
LOC: EC 19:59 → 6NMEDSUR 22:29
PROVIDERS: ADMIT Family Medicine; ATTEND Family Medicine
DX: U07.1 COVID-19 (principal); J12.89 Other viral pneumonia; J98.11 Atelectasis; E11.9 Type 2 diabetes mellitus without complications; E78.5 Hyperlipidemia, unspecified; Z80.1 Family history of malignant neoplasm of trachea, bronchus and lung; Z87.09 Personal history of other diseases of the respiratory system; M54.9 Dorsalgia, unspecified; G25.81 Restless legs syndrome; N28.1 Cyst of kidney, acquired; Z82.3 Family history of stroke; Z88.8 Allergy status to other drugs, medicaments and biological substances
CPT/HCPCS: 36415; 71045; 71046; 80053; 82728; 83605; 83615; 83735; 83880; 84145; 84484; 85025; 85379; 85610; 85730; 86140; 87040; 87635; 93005; 94640; 96361; 96374; 99285

== ENCOUNTER → 2020-08-02 | Outpatient (CLI) | payer BC ==
--- NOTE | 2020-08-03 05:45 | CT ---
EXAMINATION TYPE: CT abdomen pelvis wo/w con DATE OF EXAM: 08/02/2020 COMPARISON: 04/30/2019 HISTORY: 55-year-old male N28.89, other specified disorders of kidney/ureter. TECHNIQUE: Contiguous axial scanning of the abdomen and pelvis before and after administration of 100 ml Isovue 300 IV contrast. Delayed images through the kidneys and coronal/sagittal reconstructions performed. CT DLP: 2540.8 mGycm Automated exposure control for dose reduction was used. FINDINGS: Heart normal size without pericardial effusion. Lung bases clear without pleural effusion. Liver borderline in size at 17.0 cm. Portal venous phase images show slightly diminished attenuation of the liver as compared to the spleen suggesting mild fatty infiltration. No focal liver lesion or b iliary ductal dilatation. Portal venous system is patent. Gallbladder surgically absent. Adrenal glands, spleen, and pancreas within normal limits. No nephrolithiasis or hydronephrosis. Symmetric uptake and excretion of contrast from both kidneys. T here appear to be 2 renal veins on the right. There is a 1.3 cm cortical hypodensity anterior left kidney. This is somewhat too small for accurate CT characterization but with Hounsfield unit estimated at around 30 and no appreciable change in dens ities between the different phases of imaging. This previously measured 1.2 cm back in 2019. Otherwis e, no suspicious renal lesion. No dilated small bowel, free fluid, free air. No mesenteric or retroperitoneal lymphadenopathy. Normal appendix. Mild stool wording. Mild diverticular change of the junction of the descending and s igmoid colon. No pericolonic inflammatory change. Suspect previous umbilical abdominal wall mesh repair. Bladder urine distended. Prostate gland measures 3.6 cm wide. No abnormal fluid collection in the pel vis or pelvic lymphadenopathy. Bones: Mild degenerative change of the hips and left SI joint. No osseous destructive process. IMPRESSION: 1. BOSNIAK CATEGORY 2 PROTEINACEOUS/HEMORRHAGIC CYST IN THE ANTERIOR LEFT KIDNEY MEASURING 1.3 CM NOW VERSUS 1.2 CM IN 2019. 2. NO OTHER SUSPICIOUS RENAL LESION. 3. SUSPECT MILD FATTY INFILTRATION OF THE LIVER.
== END ==
LOC: RADCTMAIN 17:06
PROVIDERS: ATTEND Family Medicine
DX: N28.1 Cyst of kidney, acquired (principal)
CPT/HCPCS: 74178; Q9967

== ENCOUNTER 2020-08-23 09:28 | Emergency (ER) | payer BC ==
[2020-08-23 09:36] VITALS: RESP 18
[2020-08-23] MEDS ORDERED: ONDANSETRON ODT 4 MG TAB PO STA (10:18)
[2020-08-23] MEDS ORDERED: MORPHINE SULFATE 4 MG/ML SYRINGE IM STA (10:18)
--- NOTE | 2020-08-23 10:37 | ED ---
Lower Extremity Injury HPI - General Chief Complaint: Extremity Injury, Lower Stated Complaint: Post op 2x days knee pain Time Seen by Provider: 08/23/20 10:06 Source: patient, family Mode of arrival: wheelchair Limitations: physical limitation - History of Present Illness Initial Comments: Patient is a 55-year-old male presenting to the emergency Department with complaints of left knee pain that increased this morning. Patient had a partial knee replacement [address] Mojica through [facility]. Patient states he had a nerve block present for the last few days but at about 6 AM this morning he woke up with severe pain. He denies any falls or trauma. He states he did call the doctor's office who recommended he increase his home pain medication, he did take an additional Percocet this morning but it did not work. Then advised him to go to the nearest ER. He denies any fever or chills. He did have a home care nurse come yesterday and everything was looking appropriate. Denies any chest pain or shortness of breath. He has no further complaints at this time. Upon arrival to the ER his vitals are stable. - Related Data Home Medications Medication Instructions Recorded Confirmed D-Methorphan/PE/Acetaminophen 1 cap PO Q4H PRN MDD 8 CAPS 04/08/20 04/08/20 [Vicks Dayquil Liquicaps] Dm/Acetaminophen/Doxylamine [Vicks 1 cap PO Q4H PRN MDD 8 CAPS 04/08/20 04/08/20 Nyquil Liquicaps] L.acidoph,Paracasei, B.lactis 1 cap PO DAILY 04/08/20 04/08/20 [Probiotic] Previous Rx's Medication Instructions Recorded Albuterol Inhaler [Ventolin Hfa 2 puff INHALATION RT-TID #1 inh 04/11/20 Inhaler] Ascorbic Acid [Vitamin C] 2,000 mg PO DAILY 30 Days tab 04/11/20 Aspirin EC [Ecotrin Low Dose] 81 mg PO DAILY 30 Days #30 04/11/20 tablet. Azithromycin [Zithromax] 500 mg PO DAILY #2 tab 04/11/20 Cholecalciferol [Vitamin D3 (25 2,000 unit PO DAILY 30 Days tab 04/11/20 Mcg = 1000 Iu)] Famotidine [Pepcid] 20 mg PO BID #60 tablet 04/11/20 Zinc Sulfate [Orazinc] 220 mg PO DAILY #30 cap 04/11/20 dexAMETHasone [Hexadrol] See Taper PO DAILY #12 tab 04/11/20 Allergies Allergy/AdvReac Type Severity Reaction Status Date / Time metoclopramide [From Reglan] AdvReac Dyspnea/anx Verified 04/08/20 20:08 iety Review of Systems ROS Statement: Those systems with pertinent positive or pertinent negative responses have been documented in the HPI. ROS Other: All systems not noted in ROS Statement are negative. Past Medical History Past Medical History: Asthma, Hyperlipidemia Additional Past Medical History / Comment(s): asthma (child), RLS, back pain, cysts on kidneys History of Any Multi-Drug Resistant Organisms: None Reported Past Surgical History: Orthopedic Surgery Additional Past Surgical History / Comment(s): rotator cuff/bicep muscle cyst removed, left knee Past Anesthesia/Blood Transfusion Reactions: Previous Problems w/ Anesthesia Additional Past Anesthesia/Blood Transfusion Reaction / Comment(s): slow to wake Past Psychological History: No Psychological Hx Reported Smoking Status: Never smoker Past Alcohol Use History: Occasional Past Drug Use History: None Reported - Past Family History Mother Family Medical History: Cancer Additional Family Medical History / Comment(s): lung cancer mets to brain. Father Family Medical History: CVA/TIA General Exam - General Exam Comments Initial Comments: GENERAL: Patient is well-developed and well-nourished. Patient is nontoxic and in moderate distress. HEAD: Atraumatic, normocephalic. EYES: Pupils equal round and reactive to light, extraocular movements intact, sclera anicteric, conjunctiva are normal. Eyelids were unremarkable. ENT: TMs normal, nares patent, oropharynx clear without exudates. Moist mucous membranes. NECK: Normal range of motion, supple without lymphadenopathy or JVD. LUNGS: Unlabored respirations. Breath sounds clear to auscultation bilaterally and equal. No wheezes rales or rhonchi. HEART: Regular rate and rhythm without murmurs, rubs or gallops. ABDOMEN: Soft, nontender, normoactive bowel sounds. No guarding, no rebound. No masses appreciated. : Deferred MUSCULOSKELETAL: Patient has recent surgical incision on the left knee, partial knee replacement. Wound looks clean, dry and intact, no surrounding erythema, limited range of motion. He is neurovascular intact. Rest of extremities with adequate strength and normal range of motion, no pitting or edema. No clubbing or cyanosis. NEUROLOGICAL: Patient is alert and oriented x 3. Motor and sensory are also intact. Cranial nerves II through XII grossly intact. Symmetrical smile. Normal speech. PSYCH: Normal mood, normal affect. SKIN: Warm, Dry, normal turgor, no rashes or lesions noted, except above. Limitations: physical limitation Course Vital Signs 08/23/20 09:33 Temperature 98.6 F Pulse Rate 81 Respiratory 18 Rate Blood Pressure 150/104 O2 Sat by Pulse 98 Oximetry Medical Decision Making - Medical Decision Making Patient is a 55-year-old male here for increasing left knee pain, he is 2 days postop from partial knee replacement by Dr. Mojica from [place]. He does have pain medicine at home including tramadol, oxycodone, ibuprofen. Patient states he talked to his surgeon today and they are starting a new pain regimen however he is in severe pain today. No fevers. His wound looks intact, no signs of infection. Patient was given IM pain medication as well as Zofran. He does report improvement in his symptoms and feels well enough to go home. I discussed with patient and his to continue to follow-up with her surgeon regarding pain control. They are in agreement with this plan of care. Return parameters were discussed with him and he verbalized understanding. Case discussed with Dr. Hagen. Disposition Clinical Impression: Post-op pain, Left anterior knee pain Disposition: HOME SELF-CARE Condition: Stable Instructions (If sedation given, give patient instructions): Knee Pain (ED) Additional Instructions: Please return to the Emergency Department if symptoms worsen or any other concerns. Continue to follow-up with your surgeon, as discussed regarding pain control. Is patient prescribed a controlled substance at d/c from ED?: No Referrals: Kaila Engle DO [Primary Care Provider] - 1-2 days Time of Disposition: 11:18
[2020-08-23] MEDS ORDERED: MORPHINE SULFATE 2 MG/ML SYRINGE IM STA (11:15)
[2020-08-23 11:37] VITALS: BP 149/95; PULSE 82
[2020-08-23 11:46] VITALS: TEMP 96.8
== END 2020-08-23 12:00 | disposition home or self-care (01) ==
LOC: EC 09:28
DX: G89.18 Other acute postprocedural pain (principal); M25.562 Pain in left knee; J45.909 Unspecified asthma, uncomplicated; E78.5 Hyperlipidemia, unspecified; Z96.652 Presence of left artificial knee joint
CPT/HCPCS: 99283; 96372 ×2; J2270 ×2

== ENCOUNTER 2021-02-21 04:08 | Observation (INO) | payer BC ==
[2021-02-21] MEDS ORDERED: SODIUM CHLORIDE 0.9% 500 ML 500 ML IV STA (04:37)
[2021-02-21] MEDS ORDERED: MORPHINE SULFATE 4 MG/ML SYRINGE IV STA (04:37)
[2021-02-21 05:19] LABS: Basophils # (A) 0.1 k/uL (0-0.2); Basophils % (A) 1 %; Eosinophils # (A) 0.3 k/uL (0-0.7); Eosinophils % (A) 3 %; HCT 46.4 % (39.0-53.0); HGB 15.5 gm/dL (13.0-17.5); Lymphocytes # (A) 3.4 k/uL (1.0-4.8); Lymphocytes % (A) 37 %; MCH 28.9 pg (25.0-35.0); MCHC 33.4 g/dL (31.0-37.0); MCV 86.7 fL (80.0-100.0); Mean Platelet Volume 7.8; Monocytes # (A) 0.5 k/uL (0-1.0); Monocytes % (A) 6 %; Neutrophils # (A) 4.8 k/uL (1.3-7.7); Neutrophils % (A) 52 %; Platelet Count 290 k/uL (150-450); RBC 5.36 m/uL (4.30-5.90); RDW 12.4 % (11.5-15.5); WBC 9.3 k/uL (3.8-10.6)
[2021-02-21 05:20] LABS: Appearance,Urine Clear (Clear); Bilirubin,Urine Negative (Negative); Blood,Urine Negative (Negative); Color,Urine Yellow; Glucose,Urine (UA) Negative (Negative); Ketones,Urine Negative (Negative); Leukocyte Esterase,Urine Negative (Negative); Nitrite,Urine Negative (Negative); Protein,Urine Negative (Negative); Specific Gravity,Urine 1.016 (1.001-1.035); Urobilinogen,Urine <2.0 mg/dL (<2.0)
[2021-02-21 05:35] LABS: ALT 46 U/L (4-49); AST 35 U/L (17-59); African American GFR (CKD) >90 (>60 ml/min/1.73 sqM); Albumin 4.4 g/dL (3.5-5.0); Alkaline Phosphatase 58 U/L (38-126); Amylase 45 U/L (30-110); Anion Gap 7 mmol/L; Blood Urea Nitrogen 17 mg/dL (9-20); C Reactive Protein 0.7 mg/dL (<1.0); Calcium 9.6 mg/dL (8.4-10.2); Carbon Dioxide 26 mmol/L (22-30); Chloride 103 mmol/L (98-107); Glucose 91 mg/dL (74-99); Lipase 47 U/L (23-300); Non-African American GFR(CKD) >90 (>60 ml/min/1.73 sqM); Potassium 4.3 mmol/L (3.5-5.1); Sodium 136 mmol/L (137-145); Total Bilirubin 0.9 mg/dL (0.2-1.3); Total Protein 7.2 g/dL (6.3-8.2)
--- NOTE | 2021-02-21 07:55 | ED ---
Abdominal Pain HPI <Tariq Hagen - Last Filed: 02/21/21 09:44> - General Source: patient Mode of arrival: ambulatory Limitations: no limitations - History of Present Illness MD Complaint: abdominal pain Onset/Timin -: days(s) <Alexander Marquez - Last Filed: 02/27/21 22:08> - General Chief Complaint: Abdominal Pain Stated Complaint: Abd Pain Time Seen by Provider: 02/21/21 04:17 - History of Present Illness Initial Comments: 's patient is a 55-year-old man who presents to be evaluated for right lower maynor drant abdominal pain. He states that the pain has been going on for 5-6 days now. On the second of pain he was seen at [facility] where he had labs and computed tomography scan performed. The patient states that they could not provide a diagnosis at that time. He went home but the pain had continued. It was a little worse over the course of tonight so he presents here for reevaluation. No fever or chills. Patient states he has had a couple of bowel movements. (Alexander Marquez) - Related Data Previous Rx's Medication Instructions Recorded HYDROcodone/APAP 10-325MG [[place] 1 tab PO Q6HR PRN #12 tab 02/24/21 10-325] Ibuprofen [Motrin] 800 mg PO Q6H PRN #30 tab 02/24/21 Allergies Allergy/AdvReac Type Severity Reaction Status Date / Time metoclopramide [From Reglan] AdvReac Dyspnea/anx Verified 02/21/21 09:39 iety Review of Systems ROS Other: All systems not noted in ROS Statement are negative. <Tariq Hagen - Last Filed: 02/21/21 09:44> ROS Other: All systems not noted in ROS Statement are negative. Constitutional: Denies: fever, chills Respiratory: Denies: cough, dyspnea Cardiovascular: Denies: chest pain, palpitations, edema Gastrointestinal: Reports: abdominal pain, diarrhea. Denies: nausea, vomiting, constipation, melena, hematochezia Genitourinary: Denies: dysuria, frequency, hematuria, testicular pain Musculoskeletal: Denies: back pain Skin: Denies: rash Neurological: Denies: headache, weakness, numbness <Alexander Marquez - Last Filed: 02/27/21 22:08> ROS Statement: Those systems with pertinent positive or pertinent negative responses have been documented in the HPI. Past Medical History Past Medical History: Asthma, Hyperlipidemia Additional Past Medical History / Comment(s): asthma (child), RLS, back pain, cysts on kidneys History of Any Multi-Drug Resistant Organisms: None Reported Past Surgical History: Joint Replacement, Orthopedic Surgery Additional Past Surgical History / Comment(s): rotator cuff/bicep muscle cyst removed, left knee- partial knee replacement Past Anesthesia/Blood Transfusion Reactions: Previous Problems w/ Anesthesia Additional Past Anesthesia/Blood Transfusion Reaction / Comment(s): slow to wake Past Psychological History: No Psychological Hx Reported Smoking Status: Never smoker Past Alcohol Use History: Occasional Past Drug Use History: None Reported - Past Family History Mother Family Medical History: Cancer Additional Family Medical History / Comment(s): lung cancer mets to brain. Father Family Medical History: CVA/TIA <Alexander Marquez - Last Filed: 02/27/21 22:08> General Exam Limitations: no limitations General appearance: alert, in no apparent distress Head exam: Present: atraumatic, normocephalic Eye exam: Present: normal appearance. Absent: scleral icterus, conjunctival injection Respiratory exam: Present: normal lung sounds bilaterally. Absent: respiratory distress, wheezes, rales, rhonchi, stridor Cardiovascular Exam: Present: regular rate, normal rhythm, normal heart sounds. Absent: systolic murmur, diastolic murmur, rubs, gallop GI/Abdominal exam: Present: soft, tenderness (mild right lower quadrant tenderness without rebound or guarding), normal bowel sounds. Absent: distended, guarding, rebound, rigid, mass, pulsatile mass, hernia Extremities exam: Present: normal inspection, normal capillary refill. Absent: pedal edema, calf tenderness Back exam: Present: normal inspection. Absent: CVA tenderness (R), CVA tenderness (L) Neurological exam: Present: alert Skin exam: Present: warm, dry, intact, normal color. Absent: rash <Alexander Marquez - Last Filed: 02/27/21 22:08> Course Vital Signs 02/21/21 02/21/21 02/21/21 04:09 06:59 09:55 Temperature 98.2 F 97.7 F 97.7 F Pulse Rate 61 56 L 53 L Respiratory 20 18 17 Rate Blood Pressure 145/79 135/90 112/81 O2 Sat by Pulse 99 97 97 Oximetry Medical Decision Making - Lab Data Result diagrams: 02/21/21 04:36 02/21/21 04:36 <Tariq Hagen - Last Filed: 02/21/21 09:44> - Lab Data Result diagrams: 02/21/21 04:36 02/21/21 04:36 <FabianasirenaAlexander - Last Filed: 02/27/21 22:08> - Medical Decision Making Patient's CAT scan showed no etiology for the abdominal pain. Patient was still mildly tender to palpation. Patient states he did not want to go home because his been 5 days for doctor visits with 2 ER visits and 2 CAT scans and he still in pain. I spoke with Dr. Nelson he agreed to admit the patient admitted the patient I consulted Dr. Miguel. (Tariq Hagen) - Lab Data Lab Results 02/21/21 02/21/21 02/21/21 Range/Units 04:36 04:36 04:36 WBC 9.3 (3.8-10.6) k/uL RBC 5.36 (4.30-5.90) m/uL Hgb 15.5 (13.0-17.5) gm/dL Hct 46.4 (39.0-53.0) % MCV 86.7 (80.0-100.0) fL MCH 28.9 (25.0-35.0) pg MCHC 33.4 (31.0-37.0) g/dL RDW 12.4 (11.5-15.5) % Plt Count 290 (150-450) k/uL MPV 7.8 Neutrophils % 52 % Lymphocytes % 37 % Monocytes % 6 % Eosinophils % 3 % Basophils % 1 % Neutrophils # 4.8 (1.3-7.7) k/uL Lymphocytes # 3.4 (1.0-4.8) k/uL Monocytes # 0.5 (0-1.0) k/uL Eosinophils # 0.3 (0-0.7) k/uL Basophils # 0.1 (0-0.2) k/uL Sodium 136 L (137-145) mmol/L Potassium 4.3 (3.5-5.1) mmol/L Chloride 103 (98-107) mmol/L Carbon Dioxide 26 (22-30) mmol/L Anion Gap 7 mmol/L BUN 17 (9-20) mg/dL Creatinine 0.92 (0.66-1.25) mg/dL Est GFR (CKD-EPI)AfAm >90 (>60 ml/min/1.73 sqM) Est GFR (CKD-EPI)NonAf >90 (>60 ml/min/1.73 sqM) Glucose 91 (74-99) mg/dL Calcium 9.6 (8.4-10.2) mg/dL Total Bilirubin 0.9 (0.2-1.3) mg/dL AST 35 (17-59) U/L ALT 46 (4-49) U/L Alkaline Phosphatase 58 (38-126) U/L C-Reactive Protein 0.7 (<1.0) mg/dL Total Protein 7.2 (6.3-8.2) g/dL Albumin 4.4 (3.5-5.0) g/dL Amylase 45 (30-110) U/L Lipase 47 (23-300) U/L Urine Color Yellow Urine Appearance Clear (Clear) Urine pH 6.0 (5.0-8.0) Ur Specific [place] 1.016 (1.001-1.035) Urine Protein Negative (Negative) Urine Glucose (UA) Negative (Negative) Urine Ketones Negative (Negative) Urine Blood Negative (Negative) Urine Nitrite Negative (Negative) Urine Bilirubin Negative (Negative) Urine Urobilinogen <2.0 (<2.0) mg/dL Ur Leukocyte Esterase Negative (Negative) Disposition Time of Disposition: 09:45 <Tariq Hagen - Last Filed: 02/21/21 09:44> <Alexander Marquez - Last Filed: 02/27/21 22:08> Clinical Impression: Abdominal pain Disposition: ADMITTED IP TO THIS HOSP
[2021-02-21] MEDS ORDERED: HYDROmorphone 0.5 MG/0.5 ML SYRINGE IVP STA (08:09)
--- NOTE | 2021-02-21 08:15 | CT ---
EXAMINATION TYPE: CT abdomen pelvis w con DATE OF EXAM: 02/21/2021 COMPARISON: 08/22/2020 HISTORY: 55 year-old male abdominal pain, right lower quadrant pain. TECHNIQUE: Contiguous axial scanning of the abdomen and pelvis following administration of 100 ml Iso cheo 300 IV contrast. Delayed images through the kidneys and coronal/sagittal reconstructions perform ed. CT DLP: 1344.8 mGycm Automated exposure control for dose reduction was used. FINDINGS: Heart normal size without pericardial effusion. Lung bases clear without pleural effusion. Small hiatal hernia. No focal liver lesion or biliary ductal dilatation. Portal venous system is patent. Nonvisualization of the gallbladder, probably surgically absent. Adrenal glands, right kidney, spleen, pancreas within normal limits. There is a 1.4 cm cortical cyst anterior left kidney increased from 1.0 cm, previously. No dilated small bowel, free fluid, or free air. No mesenteric or retroperitoneal lymphadenopathy. Normal appendix. Minimal scattered stool. There is sigmoid diverticulosis, proximally. Mildly redundant sigmoid colon. No pericolonic inflammatory change. Bladder is urine distended. Prostate gland measures borderline in size at 3.9 cm wide. No abnormal fl uid collection in the pelvis or pelvic lymphadenopathy. Bones: Mild degenerative change pubic symphysis. Mild degenerative change of the hips. Mild degenerat yue changes left SI joint. Mild facet arthropathy lower lumbar spine and L5-S1. IMPRESSION: 1. Small hiatal hernia. 2. Proximal sigmoid diverticulosis. No evidence for acute diverticulitis. 3. Normal appendix.
[2021-02-21] MEDS ORDERED: SODIUM CHLORIDE 0.9% 1,000 ML IV ONE (09:45)
--- NOTE | 2021-02-21 16:08 | P.GSCN ---
<Ellie Malagon - Last Filed: 02/21/21 15:55> History of Present Illness Consult date: 02/21/21 History of present illness: CHIEF COMPLAINT: Abdominal pain HISTORY OF PRESENT ILLNESS: This is a 55-year-old male with known history of asthma, hyperlipidemia, back pain and cysts on his kidneys. His surgical history consists of A cholecystectomy, umbilical hernia repair and bilateral inguinal hernia repair. Patient presents to the hospital with complaints of right sided lower abdominal pain. He reports that the pain radiated from the right lower abdomen up into the right flank. He has been having vomiting and diarrhea. His symptoms started 5 days ago. He initially presented to [facility] ER due to concerns for a possible appendicitis. He had a computed tomography scan of the abdomen completed and laboratory results that were negative per patient. Except per patient they did report blood in his urine test. Patient was discharged from the ER and he was told to follow-up with PCP or return to ER. Yesterday, patient reports an increase in his right-sided abdominal pain. He describes the pain now is dull and achy. He reports his pain is better after taking pain medication. He denies any urinary symptoms. He denies any blood in his stools. Patient reports having a prior colonoscopy which was negative. Patient is frustrated that his pain continues. He denies any recent traveling. He denies any fever or chills. Surgical service was consulted for abdominal pain. PAST MEDICAL HISTORY: See list. PAST SURGICAL HISTORY: See list. MEDICATIONS: See list. ALLERGIES: See list. SOCIAL HISTORY: No illicit drug use. REVIEW OF SYSTEMS: CONSTITUTIONAL: Denies fever or chills. HEENT: Denies blurred vision, vision changes, or eye pain. Denies hemoptysis ENDOCRINE: Denies heat or cold intolerance. CARDIOVASCULAR: Denies chest pain or pressure. RESPIRATORY: No shortness of breath. GASTROINTESTINAL: Please per HPI NEURO: Denies history of seizures. PSYCH: No depression or suicidal ideation HEMATOLOGIC: Denies bleeding disorders. LYMPHATIC: The patient denies any lumps and bumps around the neck. GENITOURINARY: Denies any blood in urine or increased urinary frequency. MUSCULOSKELETAL: Denies myalgias. Denies joint swelling. Denies decreased range of motion beyond patients baseline. SKIN: Denies pruitis. Denies rash. PHYSICAL EXAM: VITAL SIGNS: Reviewed GENERAL: Well-developed in no acute distress. HEENT: No sclera icterus. Extraocular movements grossly intact. Moist buccal mucosa. Head is atraumatic, normocephalic. Hears conversational speech. No nasal drainage. NECK: Supple without lymphadenopathy. CHEST: Non-labored respirations and equal bilateral excursions. CARDIOVASCULAR: Palpable 2+ radial pulses. ABDOMEN: Soft. Nondistended. Minimal tenderness right lower abdomen MUSCULOSKELETAL: No clubbing or cyanosis. NEUROLOGIC: No focal or lateralizing signs. Cranial nerves II through XII grossly intact. PSYCH: Appropriate affect. Alert and oriented to person, place and time. SKIN: Well perfused. Good skin turgor. LABORATORY DATA: WBC 9.3 hemoglobin 15.5 platelets 290 sodium 136 potassium 4.3 BUN 17 creatinine 0.92 LFTs normal CRP 0.7 Lipase 47 Urinalysis negative for infection or blood IMAGING: Computed tomography scan abdomen shows small hiatal hernia, proximal sigmoid diverticulosis. No evidence for acute diverticulitis. Normal appendix ASSESSMENT: 1. Right lower abdominal pain with vomiting and diarrhea 2. History of hyperlipidemia 3. History of asthma PLAN: -Further recommendations forthcoming per surgeon -Continue supportive care -Continue IV fluids -Start clear liquid -Continue pain medication as needed Thank you for this consultation Physician Bisque Grader note has been reviewed by physician. Signing provider agrees with the documented findings, assessment, and plan of care. Past Medical History Past Medical History: Asthma, Hyperlipidemia Additional Past Medical History / Comment(s): asthma (child), RLS, back pain, cysts on kidneys. covid in oct. History of Any Multi-Drug Resistant Organisms: None Reported Past Surgical History: Adenoidectomy, Cholecystectomy, Hernia Repair, Joint Replacement, Orthopedic Surgery, Tonsillectomy Additional Past Surgical History / Comment(s): rotator cuff/bicep muscle cyst removed, left knee- partial knee replacement Past Anesthesia/Blood Transfusion Reactions: Previous Problems w/ Anesthesia Additional Past Anesthesia/Blood Transfusion Reaction / Comm: slow to wake Past Psychological History: No Psychological Hx Reported Smoking Status: Never smoker Past Alcohol Use History: Occasional Past Drug Use History: None Reported - Past Family History Mother Family Medical History: Cancer Additional Family Medical History / Comment(s): lung cancer mets to brain. Father Family Medical History: CVA/TIA Medications and Allergies Home Medications Medication Instructions Recorded Confirmed Type HYDROcodone/APAP 10-325MG [[place] 1 tab PO Q6HR PRN 02/21/21 02/21/21 History 10-325] Ibuprofen [Motrin] 800 mg PO Q6H PRN 02/21/21 02/21/21 History Allergies Allergy/AdvReac Type Severity Reaction Status Date / Time metoclopramide [From Reglan] AdvReac Dyspnea/anx Verified 02/21/21 09:39 iety Surgical - Exam Vital Signs Temp Pulse Resp BP Pulse Ox 98.2 F 61 20 145/79 99 02/21/21 04:09 02/21/21 04:09 02/21/21 04:09 02/21/21 04:09 02/21/21 04:09 Results - Labs 02/21/21 04:36 02/21/21 04:36 Abnormal Lab Results - Last 24 Hours (Table) 02/21/21 Range/Units 04:36 Sodium 136 L (137-145) mmol/L Diabetes panel 02/21/21 Range/Units 04:36 Sodium 136 L (137-145) mmol/L Potassium 4.3 (3.5-5.1) mmol/L Chloride 103 (98-107) mmol/L Carbon Dioxide 26 (22-30) mmol/L BUN 17 (9-20) mg/dL Creatinine 0.92 (0.66-1.25) mg/dL Glucose 91 (74-99) mg/dL Calcium 9.6 (8.4-10.2) mg/dL AST 35 (17-59) U/L ALT 46 (4-49) U/L Alkaline Phosphatase 58 (38-126) U/L Total Protein 7.2 (6.3-8.2) g/dL Albumin 4.4 (3.5-5.0) g/dL Calcium panel 02/21/21 Range/Units 04:36 Calcium 9.6 (8.4-10.2) mg/dL Albumin 4.4 (3.5-5.0) g/dL Pituitary panel 02/21/21 Range/Units 04:36 Sodium 136 L (137-145) mmol/L Potassium 4.3 (3.5-5.1) mmol/L Chloride 103 (98-107) mmol/L Carbon Dioxide 26 (22-30) mmol/L BUN 17 (9-20) mg/dL Creatinine 0.92 (0.66-1.25) mg/dL Glucose 91 (74-99) mg/dL Calcium 9.6 (8.4-10.2) mg/dL Adrenal panel 02/21/21 Range/Units 04:36 Sodium 136 L (137-145) mmol/L Potassium 4.3 (3.5-5.1) mmol/L Chloride 103 (98-107) mmol/L Carbon Dioxide 26 (22-30) mmol/L BUN 17 (9-20) mg/dL Creatinine 0.92 (0.66-1.25) mg/dL Glucose 91 (74-99) mg/dL Calcium 9.6 (8.4-10.2) mg/dL Total Bilirubin 0.9 (0.2-1.3) mg/dL AST 35 (17-59) U/L ALT 46 (4-49) U/L Alkaline Phosphatase 58 (38-126) U/L Total Protein 7.2 (6.3-8.2) g/dL Albumin 4.4 (3.5-5.0) g/dL <Kalyn Van - Last Filed: 02/22/21 21:37> History of Present Illness History of present illness: Patient seen and evaluated CHIEF COMPLAINT: Abdominal pain HISTORY OF PRESENT ILLNESS: The patient is a 55 year old male who comes in subacute right lower quadrant abdominal pain for over one week. Patient reports going to work over the weekend and developed right lower quadrant abdominal pain that occurred prior to developing nausea and vomiting. Patient did go to different hospital for similar workup and was discharged home on negative findings. Patient did follow up with primary care provider regarding questionable diverticulitis and abdominal pain. He was redirected to the emergency room. He had been prescribed antibiotics but reports he has not taken any antibiotics. Additional information is obtained by his where his pain has been severe. Since admission, his pain is still present however decreased in severity. He has been able to tolerate liquid diet. He does report intermittent diarrhea. No reports of blood in stools. Prior surgeries include umbilical hernia repair including bilateral inguinal hernia repairs. General surgery is consulted for his abdominal pain. PAST MEDICAL HISTORY: See list and reviewed PAST SURGICAL HISTORY: See list and reviewed MEDICATIONS: See list and reviewed ALLERGIES: See list and reviewed SOCIAL HISTORY: See list and reviewed FAMILY HISTORY: See list and reviewed REVIEW OF ORGAN SYSTEMS: CONSTITUTIONAL: No fevers or chills. No recent weight loss. EYES: Denies any trouble with vision. No glasses. HEENT: No difficulties with hearing. No nosebleeds. No difficulty swallowing. RESPIRATORY: Denies pneumonia. Denies any troubles with breathing or dyspnea on exertion. Has asthma. CARDIOVASCULAR: Denies any chest pain, palpitations, or recent heart attacks. GASTROINTESTINAL: Denies fatty food intolerance. Denies change in bowel habits and gas bloat. GENITOURINARY: Denies any blood in urine or increased urinary frequency. NEUROLOGICAL: Denies any numbness or tingling along the distal extremities. No seizure disorders or headaches. MUSCULOSKELETAL: Has restless leg syndrome. Past knee replacement. SKIN: No current skin cancer. No rash. PSYCHIATRIC: Denies current depression or suicidal thoughts. ENDOCRINE: Denies current thyroid disorders. Denies any blood sugar glucose intolerance. HEME/LYMPHATIC: Denies any lumps and bumps around the neck. No recent deep venous thrombosis. ALLERGY/IMMUNOLOGY: No immunoglobulin therapy. No immune deficiencies. BREAST: Denies current breast lumps, pain or nipple discharge. PHYSICAL EXAM: VITALS: Reviewed CONSTITUTIONAL: Well developed and in no acute distress. EYES: Conjuctivae without sclera icterus. Extraocular movements grossly intact. HEAD, EARS, NOSE, THROAT: Moist buccal mucosa. Head is atraumatic, normocephalic. Hears conversational speech. No nasal drainage. NECK: Suppl No JV distention. No thyroidomegaly. RESPIRATORY: Non-labored respirations and equal bilateral excursions. No gross wheezes. CARDIOVASCULAR: Regular rate and rhythm. Extremities without moderate edema. Palpable 2+ radial pulses. ABDOMEN: Tender right lower quadrant. Prior incision of umbilical hernia nevin ntified. No peritonitis. LYMPH: No neck lymphadenopathy. MUSCULOSKELETAL: No clubbing, cyanosis, edema SKIN: Warm and well perfused with good skin turgor. NEUROLOGIC: Cranial nerves II through XII grossly intact. Sensation upper and extremities intact. No focal or lateralizing signs. PSYCH: Appropriate affect. Alert and oriented to person, place and time. Displays appropriate insight. CLINCAL LABS: Reviewed. WBC within normal limits without left shift or eosinophilia IMAGING: Independently reviewed CT of the abdomen and pelvis demonstrates diverticulosis. No features of small bowel dilatation or bowel obstruction. No inflammatory changes along the colon for colitis. RADIOLOGY: Report reviewed CT of the pelvis with hiatal hernia, sigmoid diverticulosis. ASSESSMENT: 1. Intractable right lower quadrant abdominal pain PLAN: 1. Continue conservative management at this time. Thank you for this kind consultation. Surgical - Exam Vital Signs Temp Pulse Resp BP Pulse Ox 98.2 F 61 20 145/79 99 02/21/21 04:09 02/21/21 04:09 02/21/21 04:09 02/21/21 04:09 02/21/21 04:09 Results - Labs 02/21/21 04:36 02/21/21 04:36 Assessment and Plan (1) Right lower quadrant abdominal pain Current Visit: Yes Status: Acute Code(s): R10.31 - RIGHT LOWER QUADRANT PAIN SNOMED Code(s): 019710657 (2) Diarrhea Current Visit: Yes Status: Acute Code(s): R19.7 - DIARRHEA, UNSPECIFIED SNOMED Code(s): 24453231 (3) Obesity Current Visit: Yes Status: Acute Code(s): E66.9 - OBESITY, UNSPECIFIED SNOMED Code(s): 929167823 (4) BMI 33.0-33.9,adult Current Visit: Yes Status: Acute Code(s): Z68.33 - BODY MASS INDEX [BMI] 33.0-33.9, ADULT SNOMED Code(s): 237281402 (5) Nausea and vomiting Current Visit: Yes Status: Acute Code(s): R11.2 - NAUSEA WITH VOMITING, UNSPECIFIED SNOMED Code(s): 34601210
[2021-02-21] MEDS ORDERED: ACETAMINOPHEN TAB 325 MG TAB PO PRN (16:14)
[2021-02-21] MEDS ORDERED: ONDANSETRON 4 MG/2 ML VIAL IVP PRN (16:20)
[2021-02-21] MEDS: HYDROcodone/APAP 5-325MG 1 EACH TAB PO PRN (19:35)
--- NOTE | 2021-02-22 13:22 | P.PN ---
<Ellie Malagon - Last Filed: 02/22/21 13:19> Subjective Progress Note Date: 02/22/21 CHIEF COMPLAINT: Abdominal pain HISTORY OF PRESENT ILLNESS: Surgical service is following regards to patient's abdominal pain. He still reports some having about the same pain in the right lower abdomen. But the pain is controlled. The right-sided flank pain is resolved. He did have 3 more episodes of diarrhea through the night. No further nausea or vomiting. Currently on a clear liquid diet. Afebrile. PHYSICAL EXAM: VITAL SIGNS: Reviewed GENERAL: Well-developed in no acute distress. HEENT: No sclera icterus. Extraocular movements grossly intact. Moist buccal mucosa. Head is atraumatic, normocephalic. Hears conversational speech. No nasal drainage. NECK: Supple without lymphadenopathy. CHEST: Non-labored respirations and equal bilateral excursions. CARDIOVASCULAR: Palpable 2+ radial pulses. ABDOMEN: Soft. Nondistended. Tenderness with palpation of the right lower abdomen MUSCULOSKELETAL: No clubbing or cyanosis. NEUROLOGIC: No focal or lateralizing signs. Cranial nerves II through XII grossly intact. PSYCH: Appropriate affect. Alert and oriented to person, place and time. SKIN: Well perfused. Good skin turgor. ASSESSMENT: 1. Right lower abdominal pain with vomiting and diarrhea 2. History of hyperlipidemia 3. History of asthma PLAN: -Further recommendations forthcoming per surgeon -Continue supportive care -Continue IV fluids -Continue clear liquid diet -Continue pain medication as needed -Encouraged patient to ambulate Physician Research Project Coordinator note has been reviewed by physician. Signing provider agrees with the documented findings, assessment, and plan of care. Objective - Vital Signs Vital signs: Vital Signs Temp 97.9 F 02/22/21 07:00 Pulse 54 L 02/22/21 07:00 Resp 16 02/22/21 07:00 BP 121/76 02/22/21 07:00 Pulse Ox 96 02/22/21 07:00 Intake & Output 02/21/21 02/22/21 02/22/21 18:59 06:59 18:59 Intake Total 180 Balance 180 Weight 94.347 kg Intake: Oral 180 Other: Voiding Method Toilet Toilet # Voids 1 1 2 # Bowel Movements 1 3 - Labs CBC & Chem 7: 02/21/21 04:36 02/21/21 04:36 <Kalyn Van - Last Filed: 02/22/21 21:45> Subjective Patient seen and evaluated CHIEF COMPLAINT: Abdominal pain HISTORY OF PRESENT ILLNESS: The patient is a 55 year old male who comes in subacute right lower quadrant abdominal pain. He reports his abdominal pain is still present along the right lower quadrant however not as severe. He is passing flatus. He reports diarrhea. Stool cultures have been obtained. REVIEW OF ORGAN SYSTEMS: No fevers or chills. No chest pain. No shortness of breath. PHYSICAL EXAM: VITALS: Reviewed CONSTITUTIONAL: Well developed and in no acute distress. EYES: Conjuctivae without sclera icterus. Extraocular movements grossly intact. HEAD, EARS, NOSE, THROAT: Moist buccal mucosa. Head is atraumatic, normocephalic. Hears conversational speech. No nasal drainage. RESPIRATORY: Non-labored respirations and equal bilateral excursions. No gross wheezes. CARDIOVASCULAR: Regular rate and rhythm. ABDOMEN: Right lower quadrant tenderness. No peritonitis. MUSCULOSKELETAL: No clubbing, cyanosis, edema SKIN: Warm and well perfused with good skin turgor. NEUROLOGIC: Cranial nerves II through XII grossly intact. Sensation upper and extremities intact. No focal or lateralizing signs. PSYCH: Appropriate affect. Alert and oriented to person, place and time. Displays appropriate insight. ASSESSMENT: 1. Intractable right lower quadrant abdominal pain 2. Diarrhea PLAN: 1. He reports persistent right lower quadrant abdominal pain. Surgical options of diagnostic laparoscopy with possible appendectomy described. 2. Alternatively, should abdominal pain improve, potential discharge. Objective - Vital Signs Vital signs: Vital Signs Temp 98.1 F 02/22/21 14:33 Pulse 61 02/22/21 14:33 Resp 18 02/22/21 14:33 BP 127/77 02/22/21 14:33 Pulse Ox 98 02/22/21 14:33 Intake & Output 02/21/21 02/22/21 02/22/21 18:59 06:59 18:59 Intake Total 180 Balance 180 Weight 94.347 kg Intake: Oral 180 Other: Voiding Method Toilet Toilet # Voids 1 1 2 # Bowel Movements 1 3 - Labs CBC & Chem 7: 02/21/21 04:36 02/21/21 04:36 Assessment and Plan (1) Diarrhea Current Visit: Yes Status: Acute Code(s): R19.7 - DIARRHE[place], UNSPECIFIED SNOMED Code(s): 86949120 (2) Nausea and vomiting Current Visit: Yes Status: Acute Code(s): R11.2 - NAUSEA WITH VOMITING, UNSPECIFIED SNOMED Code(s): 76983735 (3) Obesity Current Visit: Yes Status: Acute Code(s): E66.9 - OBESITY, UNSPECIFIED SNOMED Code(s): 056978299 (4) Right lower quadrant abdominal pain Current Visit: Yes Status: Acute Code(s): R10.31 - RIGHT LOWER QUADRANT PAIN SNOMED Code(s): 943599530
[2021-02-22] MEDS: HYDROcodone/APAP 5-325MG 1 EACH TAB PO PRN (18:17)
--- NOTE | 2021-02-22 21:04 | P.HPIM ---
History of Present Illness H&P Date: 02/22/21 Chief Complaint: abdominal pain Primo Gleason is a 55 yo M with history of inguinal hernia repair with mesh, cholecystectomy who presented to the ED complaining of 1 week history of severe RLQ pain, nausea, vomiting and diarrhea. He states his symptoms started relatively suddenly and have persisted since last Friday. He saw his PCP about this and also presented to another ED earlier in the week due to severe pain but had a negative CT scan so was recommended to follow up outpatient. He feels the symptoms worsened yesterday so came back to the ED. He denies fever, chills, night sweats or constipation. He denies any sick contacts, sore throat, cough or shortness of breath. He denies alcohol use. Review of Systems All systems: negative Constitutional: Reports malaise, Denies chills, Denies fever Eyes: denies blurred vision, denies pain Ears, nose, mouth and throat: Denies headache, Denies sore throat Cardiovascular: Denies chest pain, Denies shortness of breath Respiratory: Denies cough Gastrointestinal: Reports abdominal pain, Reports nausea, Reports vomiting, Denies diarrhea Musculoskeletal: Denies myalgias Integumentary: Denies pruritus, Denies rash Neurological: Denies numbness, Denies weakness Psychiatric: Denies anxiety, Denies depression Endocrine: Denies fatigue, Denies weight change Past Medical History Past Medical History: Asthma, Hyperlipidemia Additional Past Medical History / Comment(s): asthma (child), RLS, back pain, cysts on kidneys. covid in mar. History of Any Multi-Drug Resistant Organisms: None Reported Past Surgical History: Adenoidectomy, Cholecystectomy, Hernia Repair, Joint Replacement, Orthopedic Surgery, Tonsillectomy Additional Past Surgical History / Comment(s): rotator cuff/bicep muscle cyst removed, left knee- partial knee replacement Past Anesthesia/Blood Transfusion Reactions: Previous Problems w/ Anesthesia Additional Past Anesthesia/Blood Transfusion Reaction / Comment(s): slow to wake Past Psychological History: No Psychological Hx Reported Smoking Status: Never smoker Past Alcohol Use History: Occasional Past Drug Use History: None Reported - Past Family History Mother Family Medical History: Cancer Additional Family Medical History / Comment(s): lung cancer mets to brain. Father Family Medical History: CVA/TIA Medications and Allergies Home Medications Medication Instructions Recorded Confirmed Type HYDROcodone/APAP 10-325MG [[place] 1 tab PO Q6HR PRN 02/21/21 02/21/21 History 10-325] Ibuprofen [Motrin] 800 mg PO Q6H PRN 02/21/21 02/21/21 History Allergies Allergy/AdvReac Type Severity Reaction Status Date / Time metoclopramide [From Reglan] AdvReac Dyspnea/anx Verified 02/21/21 09:39 iety Physical Exam Vitals: Vital Signs Temp Pulse Resp BP Pulse Ox 02/22/21 19:12 97.9 F 73 16 122/78 97 02/22/21 14:33 98.1 F 61 18 127/77 98 02/22/21 07:00 97.9 F 54 L 16 121/76 96 02/22/21 00:47 97.9 F 57 L 14 112/75 96 Intake and Output 02/22/21 02/22/21 02/22/21 06:59 14:59 22:59 Intake Total 180 Balance 180 Intake: Oral 180 Other: Voiding Method Toilet # Voids 1 2 # Bowel Movements 1 3 General: well nourished, well developed, NAD. Vitals reviewed Eyes: PERRL, EOMI, conjunctiva normal HENT: normocephalic, mucus membranes moist Neck: supple, no JVD Lungs: normal respiratory effort, no wheezes or rales CV: Regular rate and rhythm, no murmur. Peripheral pulses 2+ Abdomen: soft, nondistended, no organomegaly. RLQ tenderness Lymph: no cervical or axillary LAD Skin: warm and dry. Neuro: A&Ox3, normal mood and affect Results CBC & Chem 7: 02/21/21 04:36 02/21/21 04:36 Thrombosis Risk Factor Assmnt - Choose All That Apply Each Factor Represents 1 point: Age 41-60 years Thrombosis Risk Factor Assessment Total Risk Factor Score: 1 Thrombosis Risk Factor Assessment Level: Low Risk Assessment and Plan Plan: 1. Acute RLQ pain, nausea, vomiting. Concern for chronic appendicitis. Surgery consult. Stool studies ordered, enteric pathogen, C diff by PCR. Clear liquid diet and IV fluids
[2021-02-23] MEDS: HYDROcodone/APAP 5-325MG 1 EACH TAB PO PRN ×2 (02:33→09:10)
--- NOTE | 2021-02-23 12:06 | P.PN ---
Subjective Progress Note Date: 02/23/21 CHIEF COMPLAINT: Abdominal pain HISTORY OF PRESENT ILLNESS: The patient is a 55 year old male presented with intractable right lower quadrant abdominal pain. Stool cultures are still pending. Patient is nothing by mouth. REVIEW OF ORGAN SYSTEMS: No fevers or chills. No chest pain. No shortness of breath. PHYSICAL EXAM: VITALS: Reviewed CONSTITUTIONAL: Well developed and in no acute distress. EYES: Conjuctivae without sclera icterus. Extraocular movements grossly intact. HEAD, EARS, NOSE, THROAT: Moist buccal mucosa. Head is atraumatic, normocephalic. Hears conversational speech. No nasal drainage. RESPIRATORY: Non-labored respirations and equal bilateral excursions. No gross wheezes. CARDIOVASCULAR: Regular rate and rhythm. ABDOMEN: Right lower quadrant tenderness. No peritonitis. MUSCULOSKELETAL: No clubbing, cyanosis, edema SKIN: Warm and well perfused with good skin turgor. NEUROLOGIC: Cranial nerves II through XII grossly intact. Sensation upper and extremities intact. No focal or lateralizing signs. PSYCH: Appropriate affect. Alert and oriented to person, place and time. Displays appropriate insight. LABS: Stool culture is pending. ASSESSMENT: 1. Intractable right lower quadrant abdominal pain 2. Diarrhea PLAN: 1. His clinical history including a CT of the abdomen pelvis was reevaluated. Findings are suspicious for epiploic appendagitis for his presentation. 2. Will start scheduled Toradol. 3. Diagnostic laparoscopy may be on hold pending clinical response. Objective - Vital Signs Vital signs: Vital Signs Temp 97.8 F 02/23/21 07:00 Pulse 58 L 02/23/21 07:00 Resp 18 02/23/21 07:00 BP 126/81 02/23/21 07:00 Pulse Ox 97 02/23/21 07:00 Intake & Output 02/22/21 02/23/21 02/23/21 18:59 06:59 18:59 Intake Total 180 180 Balance 180 180 Intake: Oral 180 180 Other: Voiding Method Toilet Toilet Toilet # Voids 2 1 # Bowel Movements 3 - Labs CBC & Chem 7: 02/21/21 04:36 02/21/21 04:36 Labs: Microbiology - Last 24 Hours (Table) 02/22/21 13:50 Stool Culture - Preliminary Stool Assessment and Plan (1) Diarrhea Current Visit: Yes Status: Acute Code(s): R19.7 - DIARRHEA, UNSPECIFIED SNOMED Code(s): 38928486 (2) Nausea and vomiting Current Visit: Yes Status: Acute Code(s): R11.2 - NAUSEA WITH VOMITING, UNSPECIFIED SNOMED Code(s): 53355072 (3) Obesity Current Visit: Yes Status: Acute Code(s): E66.9 - OBESITY, UNSPECIFIED SNOMED Code(s): 475583632 (4) Right lower quadrant abdominal pain Current Visit: Yes Status: Acute Code(s): R10.31 - RIGHT LOWER QUADRANT PAIN SNOMED Code(s): 115681928
[2021-02-23] MEDS ORDERED: KETOROLAC 15 MG/ML 1 ML VIAL IVP SCH (12:15)
--- NOTE | 2021-02-23 14:42 | P.PN ---
Subjective Progress Note Date: 02/23/21 Primo Gleason is a 55 yo M with history of inguinal hernia repair with mesh, cholecystectomy who presented to the ED complaining of 1 week history of severe RLQ pain, nausea, vomiting and diarrhea. He states his symptoms started relatively suddenly and have persisted since last Friday. He saw his PCP about this and also presented to another ED earlier in the week due to severe pain but had a negative CT scan so was recommended to follow up outpatient. He feels the symptoms worsened yesterday so came back to the ED. He denies fever, chills, night sweats or constipation. He denies any sick contacts, sore throat, cough or shortness of breath. He denies alcohol use. 02/23/2021 NPO. Right lower quadrant abdominal achy pain persists. Stool cultures pending. Afebrile, normal WBC. Vital signs stable, maintaining O2 sats in the 90s on room air. Objective - Vital Signs Vital signs: Vital Signs Temp 97.8 F 02/23/21 07:00 Pulse 58 L 02/23/21 07:00 Resp 18 02/23/21 07:00 BP 126/81 02/23/21 07:00 Pulse Ox 97 02/23/21 07:00 Intake & Output 02/22/21 02/23/21 02/23/21 18:59 06:59 18:59 Intake Total 180 180 Balance 180 180 Intake: Oral 180 180 Other: Voiding Method Toilet Toilet Toilet # Voids 2 1 # Bowel Movements 3 - Exam General: well nourished, well developed, NAD. Vitals reviewed Eyes: PERRL, EOMI, conjunctiva normal HENT: normocephalic, mucus membranes moist Neck: supple, no JVD Lungs: normal respiratory effort, no wheezes or rales CV: Regular rate and rhythm, no murmur. Peripheral pulses 2+ Abdomen: soft, nondistended, no organomegaly. RLQ tenderness Skin: warm and dry. Neuro: A&Ox3, normal mood and affect - Labs CBC & Chem 7: 02/21/21 04:36 02/21/21 04:36 Labs: Microbiology - Last 24 Hours (Table) 02/22/21 13:50 Stool Culture - Preliminary Stool Assessment and Plan Assessment: Acute right lower quadrant pain, nausea, vomiting, suspect chronic appendicitis Diarrhea Plan: Continue on current medication regime ,monitoring and symptomatic treatment. Pain management, Toradol initiated. Possible diagnostic laparoscopy as per surgery. Gentle IV fluid hydration. PPI ordered for GI prophylaxis. Increase ambulation as tolerated. The impression and plan of care has been dictated as directed. : I performed a history and examination of this patient, discussed the same with the dictator. I agree with the dictator's note ,documented as a scribe. Any additional findings or plans will be noted.
[2021-02-23] MEDS ORDERED: SODIUM CHLORIDE 0.9% 1,000 ML IV SCH (14:45)
[2021-02-23] MEDS ORDERED: PANTOPRAZOLE 40 MG/10 ML VIAL IVP SCH (14:45)
[2021-02-23 14:46] VITALS: BP 120/73; PULSE 66; RESP 17; TEMP 97.7
--- NOTE | 2021-02-23 16:12 | P.PN ---
Progress Note - Text Progress Note Date: 02/23/21 Patient's at bedside. Patient had tolerated see him which. No further reports of nausea and vomiting. He still reports right lower quadrant abdominal pain. Diagnosis of epiploic appendagitis described consistent with clinical presentation and history. Surgery canceled. at bedside with additional questions regarding treatment plan and pain management. Treatment is supportive with continued pain medications. Length of time of recovery may span several weeks. Extensive time of discussion including management and care plan in presence of nurse practitioner and patient's nurse over 25 minutes additionally performed.
== END 2021-02-23 16:52 | disposition home or self-care (01) ==
LOC: EC 04:08 → 6NMEDSUR 09:53
PROVIDERS: ADMIT Family Medicine; ATTEND Family Medicine
DX: K63.89 Other specified diseases of intestine (principal); K57.30 Diverticulosis of large intestine without perforation or abscess without bleeding; K44.9 Diaphragmatic hernia without obstruction or gangrene; E78.5 Hyperlipidemia, unspecified; J45.909 Unspecified asthma, uncomplicated; G25.81 Restless legs syndrome; N28.1 Cyst of kidney, acquired; M54.9 Dorsalgia, unspecified; E66.9 Obesity, unspecified; Z68.33 Body mass index [BMI] 33.0-33.9, adult; Z20.822 Contact with and (suspected) exposure to COVID-19; Z88.8 Allergy status to other drugs, medicaments and biological substances; Z90.49 Acquired absence of other specified parts of digestive tract; Z96.652 Presence of left artificial knee joint; Z98.890 Other specified postprocedural states; Z80.1 Family history of malignant neoplasm of trachea, bronchus and lung; Z82.3 Family history of stroke
CPT/HCPCS: 96361 ×2; 96375 ×2; 96374; 99285; 36415; 80053; 82150; 83690; 85025; 86140; 81003; 87045; 83630; 87046; 87635; 74177; G0378 ×3; J2270; J1885; J1170; Q9967

== ENCOUNTER 2022-03-30 10:25 | Observation (INO) | payer BC ==
[2022-03-30] MEDS ORDERED: ASPIRIN 81 MG PO STA (10:31)
[2022-03-30 11:00] LABS: Basophils # (A) 0.1 k/uL (0-0.2); Basophils % (A) 1 %; Eosinophils # (A) 0.2 k/uL (0-0.7); Eosinophils % (A) 2 %; HCT 42.9 % (39.0-53.0); HGB 14.8 gm/dL (13.0-17.5); Lymphocytes % (A) 32 %; MCH 29.5 pg (25.0-35.0); MCHC 34.6 g/dL (31.0-37.0); MCV 85.2 fL (80.0-100.0); Mean Platelet Volume 8.7; Monocytes # (A) 0.5 k/uL (0-1.0); Monocytes % (A) 6 %; Neutrophils # (A) 5.4 k/uL (1.3-7.7); Neutrophils % (A) 57 %; Platelet Count 256 k/uL (150-450); RBC 5.04 m/uL (4.30-5.90); RDW 12.7 % (11.5-15.5); WBC 9.5 k/uL (3.8-10.6)
[2022-03-30 11:07] LABS: ALT 47 U/L (4-49); AST 39 U/L (17-59); African American GFR (CKD) >90 (>60 ml/min/1.73 sqM); Albumin 4.6 g/dL (3.5-5.0); Alkaline Phosphatase 55 U/L (38-126); Anion Gap 13 mmol/L; Blood Urea Nitrogen 18 mg/dL (9-20); Calcium 9.7 mg/dL (8.4-10.2); Carbon Dioxide 20 mmol/L (22-30); Chloride 103 mmol/L (98-107); Glucose 119 mg/dL (74-99); Magnesium 2.2 mg/dL (1.6-2.3); Non-African American GFR(CKD) >90 (>60 ml/min/1.73 sqM); Potassium 3.8 mmol/L (3.5-5.1); Sodium 136 mmol/L (137-145); Total Bilirubin 0.5 mg/dL (0.2-1.3); Total Protein 6.9 g/dL (6.3-8.2)
[2022-03-30] MEDS ORDERED: NITROGLYCERIN SL TABS 0.4 MG TAB SUBLINGUAL STA (11:35)
[2022-03-30 11:40] LABS: Partial Thromboplastin Time 25.8 sec (22.0-30.0); Prothrombin Time 10.6 sec (9.0-12.0)
[2022-03-30] MEDS ORDERED: NITROGLYCERIN SL TABS 0.4 MG TAB SUBLINGUAL PRN (12:11)
--- NOTE | 2022-03-30 12:15 | ED ---
Chest Pain HPI - General Chief Complaint: Chest Pain Stated Complaint: Chest Pain Time Seen by Provider: 03/30/22 10:31 Source: patient, RN notes reviewed Mode of arrival: ambulatory Limitations: no limitations - History of Present Illness Initial Comments: 56-year-old male presents emergency Department with chief complaint of chest pain. Patient states thatstarted having some minimal symptoms last night worse this morning last 2 hours. Patient states left-sided radiates up towards of his neck. Patient states his been told that he has high cholesterol, patient has strong family history denies being a smoker. Patient denies leg pain, Swelling, history DVT or PE. - Related Data Previous Rx's Medication Instructions Recorded HYDROcodone/APAP 10-325MG [[place] 1 tab PO Q6HR PRN #12 tab 02/24/21 10-325] Ibuprofen [Motrin] 800 mg PO Q6H PRN #30 tab 02/24/21 Allergies Allergy/AdvReac Type Severity Reaction Status Date / Time metoclopramide [From Reglan] AdvReac Dyspnea/anx Verified 03/30/22 10:28 iety Review of Systems ROS Statement: Those systems with pertinent positive or pertinent negative responses have been documented in the HPI. ROS Other: All systems not noted in ROS Statement are negative. Past Medical History Past Medical History: Asthma, Hyperlipidemia Additional Past Medical History / Comment(s): asthma (child), RLS, back pain, cysts on kidneys History of Any Multi-Drug Resistant Organisms: None Reported Past Surgical History: Joint Replacement, Orthopedic Surgery Additional Past Surgical History / Comment(s): rotator cuff/bicep muscle cyst removed, left knee- partial knee replacement Past Anesthesia/Blood Transfusion Reactions: Previous Problems w/ Anesthesia Additional Past Anesthesia/Blood Transfusion Reaction / Comment(s): slow to wake Past Psychological History: No Psychological Hx Reported Smoking Status: Never smoker Past Alcohol Use History: Occasional Past Drug Use History: None Reported - Past Family History Mother Family Medical History: Cancer Additional Family Medical History / Comment(s): lung cancer mets to brain. Father Family Medical History: CVA/TIA General Exam Limitations: no limitations General appearance: alert, in no apparent distress Head exam: Present: atraumatic, normocephalic, normal inspection Eye exam: Present: normal appearance, PERRL, EOMI. Absent: scleral icterus, conjunctival injection, periorbital swelling ENT exam: Present: normal exam, mucous membranes moist Neck exam: Present: normal inspection. Absent: tenderness, meningismus, lymphadenopathy Respiratory exam: Present: normal lung sounds bilaterally. Absent: respiratory distress, wheezes, rales, rhonchi, stridor Cardiovascular Exam: Present: regular rate, normal rhythm, normal heart sounds. Absent: systolic murmur, diastolic murmur, rubs, gallop, clicks GI/Abdominal exam: Present: soft, normal bowel sounds. Absent: distended, tenderness, guarding, rebound, rigid Course Vital Signs 03/30/22 03/30/22 10:28 11:32 Temperature 97.6 F Pulse Rate 58 L 77 Respiratory 16 20 Rate Blood Pressure 164/89 144/97 O2 Sat by Pulse 97 97 Oximetry Chest Pain MDM - MDM 56-year-old male presented for chest pain and initial workup is negative including negative troponin, d-dimer. Patient admitted for cardiac rule out. Disposition Clinical Impression: Chest pain Disposition: ADMITTED IP TO THIS HOSP Referrals: Marcos Engle MD [Primary Care Provider] - 1-2 days Time of Disposition: 12:15
--- NOTE | 2022-03-30 14:29 | XR ---
EXAMINATION TYPE: TEMPORARY DATE OF EXAM: 03/30/2022 COMPARISON: 04/10/2020 INDICATION: Left upper chest pain TECHNIQUE: Frontal and lateral views of the chest are obtained. FINDINGS: The heart size is normal. The pulmonary vasculature is normal. The lungs are clear. Some chronic left upper rib deformity is evident. IMPRESSION: 1. No acute pulmonary process. 2. Chronic left upper rib changes.
--- NOTE | 2022-03-31 08:44 | P.CRDCN ---
History of Present Illness Consult date: 03/31/22 Chief complaint: Chest discomfort History of present illness: This is a 56-year-old gentleman with a past medical history significant for dyslipidemia currently not on any lipid medication as well as significant family history of coronary artery disease involving multiple family members presented to the hospital complaining of chest discomfort. He came from work yesterday and he was in his usual state of old where he was at home talking to his when he started experiencing discomfort in the middle of the chest as a dull kind of discomfort radiating to his neck as well as to his left arm. No associated symptoms of shortness of breath or sweating or dizziness or lightheadedness or any presyncope or syncope. He underwent further in vestigation including an EKG which showed sinus rhythm with no significant ST or T-wave abnormalities and he also underwent cardiac enzymes came in to be unremarkable with a chest x-ray did not show any acute abnormalities. In 2019 he underwent further investigation with a stress test and echocardiogram and both came to be unremarkable. Currently he is chest pain-free but is quite concerned about every artery disease. Past Medical History Past Medical History: Asthma, Hyperlipidemia Additional Past Medical History / Comment(s): asthma (child), RLS, back pain, cysts on kidneys History of Any Multi-Drug Resistant Organisms: None Reported Past Surgical History: Joint Replacement, Orthopedic Surgery Additional Past Surgical History / Comment(s): rotator cuff/bicep muscle cyst removed, left knee- partial knee replacement Past Anesthesia/Blood Transfusion Reactions: Previous Problems w/ Anesthesia Additional Past Anesthesia/Blood Transfusion Reaction / Comment(s): slow to wake Past Psychological History: No Psychological Hx Reported Smoking Status: Never smoker Past Alcohol Use History: Occasional Past Drug Use History: None Reported - Past Family History Mother Family Medical History: Cancer Additional Family Medical History / Comment(s): lung cancer mets to brain. Father Family Medical History: CVA/TIA Medications and Allergies Home Medications Medication Instructions Recorded Confirmed Type No Known Home Medications 03/30/22 03/30/22 History Allergies Allergy/AdvReac Type Severity Reaction Status Date / Time metoclopramide [From Reglan] AdvReac Dyspnea/anx Verified 03/30/22 10:28 iety Physical Exam Vitals: Vital Signs Temp Pulse Pulse Resp BP BP Pulse Ox 03/31/22 02:47 98.0 F 60 16 109/64 98 03/30/22 19:46 97.7 F 61 17 118/67 98 03/30/22 15:00 97.9 F 65 18 139/86 99 03/30/22 12:51 80 16 145/85 99 03/30/22 11:32 77 20 144/97 97 03/30/22 10:28 97.6 F 58 L 16 164/89 97 Intake and Output 03/30/22 03/31/22 03/31/22 22:59 06:59 14:59 Intake Total 120 Balance 120 Intake: Oral 120 Other: # Voids 1 1 - Constitutional General appearance: no acute distress - Respiratory Respiratory: bilateral: CTA - Cardiovascular Rhythm: regular Heart sounds: normal: S1, S2 Abnormal Heart Sounds: systolic murmur Results 03/30/22 10:45 03/30/22 10:45 Cardiac Enzymes 03/30/22 03/30/22 03/30/22 Range/Units 10:45 10:45 14:19 AST 39 (17-59) U/L Troponin I <0.012 <0.012 (0.000-0.034) ng/mL 03/30/22 Range/Units 16:57 AST (17-59) U/L Troponin I <0.012 (0.000-0.034) ng/mL Coagulation 03/30/22 Range/Units 10:45 PT 10.6 (9.0-12.0) sec APTT 25.8 (22.0-30.0) sec CBC 03/30/22 Range/Units 10:45 WBC 9.5 (3.8-10.6) k/uL RBC 5.04 (4.30-5.90) m/uL Hgb 14.8 (13.0-17.5) gm/dL Hct 42.9 (39.0-53.0) % Plt Count 256 (150-450) k/uL Comprehensive Metabolic Panel 03/30/22 Range/Units 10:45 Sodium 136 L (137-145) mmol/L Potassium 3.8 (3.5-5.1) mmol/L Chloride 103 (98-107) mmol/L Carbon Dioxide 20 L (22-30) mmol/L BUN 18 (9-20) mg/dL Creatinine 0.94 (0.66-1.25) mg/dL Glucose 119 H (74-99) mg/dL Calcium 9.7 (8.4-10.2) mg/dL AST 39 (17-59) U/L ALT 47 (4-49) U/L Alkaline Phosphatase 55 (38-126) U/L Total Protein 6.9 (6.3-8.2) g/dL Albumin 4.6 (3.5-5.0) g/dL Current Medications Generic Name Dose Route Start Last Admin Trade Name Freq PRN Reason Stop Dose Admin Aspirin 325 mg 03/31/22 09:00 03/31/22 08:31 Aspirin 325 Mg Tab PO 325 mg DAILY JAYDEN Administration Nitroglycerin 0.4 mg 03/30/22 12:11 Nitroglycerin Sl Tabs 0.4 Mg Tab SUBLINGUAL Q5M PRN Chest Pain Intake and Output 03/30/22 03/31/22 03/31/22 22:59 06:59 14:59 Intake Total 120 Balance 120 Intake: Oral 120 Other: # Voids 1 1 03/30/22 10:45 03/30/22 10:45 Assessment and Plan Assessment: Assessment Chest discomfort appeared to be atypical Dyslipidemia Significant family history of CAD Plan Acute coronary event was ruled out Rule out severe CAD. Obtain a stress test Follow-up on the echocardiogram Follow-up with the patient
[2022-03-31] MEDS ORDERED: ASPIRIN 325 MG TAB PO SCH (09:00)
[2022-03-31 12:21] LABS: Chol/HDL Ratio 4.86 Ratio; LDL Cholesterol,Calculated 167.1 mg/dL (0.0-131.0); VLDL Calculation 17.16 mg/dL (5.00-40.00)
[2022-03-31 14:21] VITALS: RESP 18
--- NOTE | 2022-03-31 19:34 | P.HPIM ---
History of Present Illness H&P Date: 03/30/22 Chief Complaint: Chest pain 56-year-old male presents emergency Department with chief complaint of chest pain. Patient states thatstarted having some minimal symptoms last night worse this morning last 2 hours. Patient states left-sided radiates up towards of his neck. Patient states his been told that he has high cholesterol, patient has strong family history denies being a smoker. Patient denies leg pain, Swelling, history DVT or PE. EKG which showed sinus rhythm with no significant ST or T-wave abnormalities and he also underwent cardiac enzymes came in to be unremarkable with a chest x-ray did not show any acute abnormalities. In 2019 he underwent further in vestigation with a stress test and echocardiogram and both came to be unremarkable. Currently he is chest pain-free but is quite concerned about every artery disease. Patient is admitted to the hospital for further cardiac evaluation Review of Systems REVIEW OF SYSTEMS: CONSTITUTIONAL: No fever, no malaise, no fatigue. HEENT: No recent visual problems or hearing problems. Denied any sore throat. CARDIOVASCULAR: No chest pain, orthopnea, PND, no palpitations, no syncope. PULMONARY: No shortness of breath, no cough, no hemoptysis. GASTROINTESTINAL: No diarrhea, no nausea, no vomiting, no abdominal pain. NEUROLOGICAL: No headaches, no weakness, no numbness. HEMATOLOGICAL: Denies any bleeding or petechiae. GENITOURINARY: Denies any burning micturition, frequency, or urgency. MUSCULOSKELETAL/RHEUMATOLOGICAL: Denies any joint pain, swelling, or any muscle pain. ENDOCRINE: Denies any polyuria or polydipsia. The rest of the 14-point review of systems is negative. Past Medical History Past Medical History: Asthma, Hyperlipidemia Additional Past Medical History / Comment(s): asthma (child), RLS, back pain, cysts on kidneys History of Any Multi-Drug Resistant Organisms: None Reported Past Surgical History: Joint Replacement, Orthopedic Surgery Additional Past Surgical History / Comment(s): rotator cuff/bicep muscle cyst removed, left knee- partial knee replacement Past Anesthesia/Blood Transfusion Reactions: Previous Problems w/ Anesthesia Additional Past Anesthesia/Blood Transfusion Reaction / Comment(s): slow to wake Past Psychological History: No Psychological Hx Reported Smoking Status: Never smoker Past Alcohol Use History: Occasional Past Drug Use History: None Reported - Past Family History Mother Family Medical History: Cancer Additional Family Medical History / Comment(s): lung cancer mets to brain. Father Family Medical History: CVA/TIA Medications and Allergies Home Medications Medication Instructions Recorded Confirmed Type No Known Home Medications 03/30/22 03/30/22 History Allergies Allergy/AdvReac Type Severity Reaction Status Date / Time metoclopramide [From Reglan] AdvReac Dyspnea/anx Verified 03/30/22 10:28 iety Physical Exam Vitals: Vital Signs Temp Pulse Resp BP Pulse Ox 03/30/22 11:32 77 20 144/97 97 03/30/22 10:28 97.6 F 58 L 16 164/89 97 Intake and Output 03/29/22 03/30/22 03/30/22 22:59 06:59 14:59 Other: Weight 99.79 kg PHYSICAL EXAMINATION: GENERAL: The patient is alert and oriented x3, not in any acute distress. Well developed, well nourished. HEENT: Pupils are round and equally reacting to light. EOMI. No scleral icterus. No conjunctival pallor. Normocephalic, atraumatic. No pharyngeal erythema. No thyromegaly. CARDIOVASCULAR: S1 and S2 present. No murmurs, rubs, or gallops. PULMONARY: Chest is clear to auscultation, no wheezing or crackles. ABDOMEN: Soft, nontender, nondistended, normoactive bowel sounds. No palpable o rganomegaly. MUSCULOSKELETAL: No joint swelling or deformity. EXTREMITIES: No cyanosis, clubbing, or pedal edema. NEUROLOGICAL: Gross neurological examination did not reveal any focal deficits. SKIN: No rashes. Results CBC & Chem 7: 03/30/22 10:45 03/30/22 10:45 Labs: Abnormal Lab Results - Last 24 Hours (Table) 03/30/22 Range/Units 10:45 Sodium 136 L (137-145) mmol/L Carbon Dioxide 20 L (22-30) mmol/L Glucose 119 H (74-99) mg/dL Assessment and Plan Assessment: 1. Chest pain; rule out acute coronary syndrome - We will admit patient to telemetry and monitor EKG; trend troponin - Patient will be placed on aspirin and sublingual nitroglycerin to be used when necessary - 2-D echo is ordered Consult cardiology for further recommendations 2. Hyperlipidemia; patient is not on any statin therapy 3. Obesity; counseling done for need for weight reduction 4. Family history of coronary artery disease DVT prophylaxis; SCDs CODE STATUS; full code
--- NOTE | 2022-03-31 19:35 | P.PN ---
Subjective Progress Note Date: 03/31/22 Principal diagnosis: Chest pain/ unstable angina 56-year-old male presents emergency Department with chief complaint of chest pain. Patient states thatstarted having some minimal symptoms last night worse this morning last 2 hours. Patient states left-sided radiates up towards of his neck. Patient states his been told that he has high cholesterol, patient has strong family history denies being a smoker. Patient denies leg pain, Swelling, history DVT or PE. EKG which showed sinus rhythm with no significant ST or T-wave abnormalities and he also underwent cardiac enzymes came in to be unremarkable with a chest x-ray did not show any acute abnormalities. In 2019 he underwent further investigation with a stress test and echocardiogram and both came to be unremarkable. Currently he is chest pain-free but is quite concerned about every artery disease. Patient is admitted to the hospital for further cardiac evaluation Patient has been evaluated by cardiology and is recommended a nuclear stress test and 2-D echocardiogram to rule out severe coronary artery disease. Strong family history, obesity, hyperlipidemia Objective - Vital Signs Vital signs: Vital Signs Temp 97.4 F L 03/31/22 07:00 Pulse 60 03/31/22 08:00 Resp 16 03/31/22 08:00 BP 116/68 03/31/22 07:00 Pulse Ox 98 03/31/22 07:00 FiO2 Intake & Output 03/30/22 03/31/22 03/31/22 18:59 06:59 18:59 Intake Total 170 Balance 170 Weight 99.79 kg Intake: Oral 170 Other: Voiding Method Toilet # Voids 1 1 1 - Exam PHYSICAL EXAMINATION: GENERAL: The patient is alert and oriented x3, not in any acute distress. Well developed, well nourished. HEENT: Pupils are round and equally reacting to light. EOMI. No scleral icterus. No conjunctival pallor. Normocephalic, atraumatic. No pharyngeal erythema. No thyromegaly. CARDIOVASCULAR: S1 and S2 present. No murmurs, rubs, or gallops. PULMONARY: Chest is clear to auscultation, no wheezing or crackles. ABDOMEN: Soft, nontender, nondistended, normoactive bowel sounds. No palpable organomegaly. MUSCULOSKELETAL: No joint swelling or deformity. EXTREMITIES: No cyanosis, clubbing, or pedal edema. NEUROLOGICAL: Gross neurological examination did not reveal any focal deficits. SKIN: No rashes. - Labs CBC & Chem 7: 03/30/22 10:45 03/30/22 10:45 Labs: Abnormal Lab Results - Last 24 Hours (Table) 03/31/22 Range/Units 07:39 Cholesterol 232.00 H (0.00-200.00) mg/dL LDL Cholesterol, Calc 167.1 H (0.0-131.0) mg/dL Assessment and Plan Assessment: 1. Chest pain; rule out acute coronary syndrome - We will admit patient to telemetry and monitor EKG; trend troponin - Patient will be placed on aspirin and sublingual nitroglycerin to be used when necessary - 2-D echo is ordered Consult cardiology for further recommendations 2. Hyperlipidemia; patient is not on any statin therapy 3. Obesity; counseling done for need for weight reduction 4. Family history of coronary artery disease DVT prophylaxis; SCDs CODE STATUS; full code
[2022-04-01 08:21] VITALS: BP 127/70; PULSE 66; TEMP 97.9
[2022-04-01] MEDS ORDERED: ASPIRIN 81 MG PO SCH (09:00)
--- NOTE | 2022-04-01 09:40 | P.PN ---
Subjective This is a 56-year-old gentleman with a past medical history significant for dyslipidemia, currently not on any lipid medication as well as significant family history of coronary artery disease involving multiple family members. 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 He presented to the hospital complaining of chest discomfort. He came from work yesterday and he was in his usual state of old where he was at home talking to his when he started experiencing discomfort in the middle of the chest as a dull kind of discomfort radiating to his neck as well as to his left arm. No associated symptoms of shortness of breath or sweating or dizziness or lightheadedness or any presyncope or syncope. He underwent further investigation including an EKG which showed sinus rhythm with no significant ST or T-wave abnormalities and he also underwent cardiac enzymes came in to be unremarkable with a chest x-ray did not show any acute abnormalities. In 2019 he underwent further investigation with a stress test and echocardiogram and both came to be unremarkable. 04/01 Patient seen and examined at bedside, no acute distress. Denies any further chest pain. Denies any shortness of breath. Blood pressure 127/70, heart rate 66, afebrile, saturation 99% on room air. Acute coronary syndrome has ruled out. Plan for stress echo test today. GENERAL: Well-appearing, well-nourished and in no acute distress. NECK: Supple without JVD LUNGS: Breath sounds clear to auscultation bilaterally. Respiration equal and unlabored. No wheezes, rales or rhonchi. HEART: Regular rate and rhythm without murmurs, rubs or gallops. S1 and S2 heard. EXTREMITIES: Normal range of motion, no edema. No clubbing or cyanosis. Peripheral pulses intact. ASSESSMENT Chest pain, acute coronary syndrome has been ruled out History of dyslipidemia Family history of coronary artery disease PLAN Plan for stress echo test today. Obtain 2-D echocardiogram If no stress-induced ischemia reported on stress test, no further inpatient workup from a cardiology perspective. Nurse Practitioner note has been reviewed, I agree with a documented findings and plan of care. Patient was seen and examined. Objective - Vital Signs Vital signs: Vital Signs Temp 97.9 F 04/01/22 07:30 Pulse 66 04/01/22 07:30 Resp 18 04/01/22 07:30 BP 127/70 04/01/22 07:30 Pulse Ox 99 04/01/22 07:30 FiO2 Intake & Output 03/31/22 04/01/22 04/01/22 18:59 06:59 18:59 Intake Total 780 Balance 780 Intake: Oral 780 Other: Voiding Method Toilet Toilet # Voids 2 1 - Labs CBC & Chem 7: 03/30/22 10:45 03/30/22 10:45 Labs: Abnormal Lab Results - Last 24 Hours (Table) 03/31/22 Range/Units 07:39 Cholesterol 232.00 H (0.00-200.00) mg/dL LDL Cholesterol, Calc 167.1 H (0.0-131.0) mg/dL
--- NOTE | 2022-04-01 10:43 | CA ---
Transthoracic Echo Report Name: Primo Gleason Age: 56 Gender: M : 1965 Exam Date: 04/01/2022 09:23 Exam Location: [facility] Ht (in): 66 Wt (lb): 220 Ordering Physician: Ra Gonzales Attending/Referring Phys: [id number], Janet Traffic Checker Cherelle Cespedes RDCS Procedure CPT: Indications: Chest Pain Cardiac Hx: Technical Quality: Good Contrast 1: Total Dose (mL): Contrast 2: Total Dose (mL): MEASUREMENTS (Male / Female) Normal Values 2D ECHO LV Diastolic Diameter PLAX 4.2 cm 4.2 - 5.9 / 3.9 - 5.3 cm LV Systolic Diameter PLAX 2.9 cm IVS Diastolic Thickness 1.1 cm 0.6 - 1.0 / 0.6 - 0.9 cm LVPW Diastolic Thickness 1.1 cm 0.6 - 1.0 / 0.6 - 0.9 cm LV Relative Wall Thickness 0.5 RV Internal Dim ED PLAX 3.2 cm LA Systolic Diameter LX 3.1 cm 3.0 - 4.0 / 2.7 - 3.8 cm LA Volume 37.6 cm??? 18 - 58 / 22 - 52 cm??? M-MODE Aortic Root Diameter MM 3.3 cm MV E Point Septal Separation 0.4 cm AV Cusp Separation MM 1.9 cm DOPPLER AV Peak Velocity 129.3 cm/s AV Peak Gradient 6.7 mmHg MV Area PHT 2.7 cm??? Mitral E Point Velocity 56.7 cm/s Mitral A Point Velocity 61.0 cm/s Mitral E to A Ratio 0.9 MV Deceleration Time 285.0 ms MV E' Velocity 7.7 cm/s Mitral E to MV E' Ratio 7.4 FINDINGS Left Ventricle Left ventricular ejection fraction is estimated at 60-65 %. Left ventricular cavity size normal. Borderline left ventricular hypertrophy. Right Ventricle Normal right ventricular size and function. Unable to estimate the right ventricular systolic pressure. Right Atrium Normal right atrial size. Left Atrium Normal left atrial size. No evidence for an atrial septal defect. Mitral Valve Structurally normal mitral valve. No mitral stenosis, regurgitation or prolapse. Aortic Valve Trileaflet aortic valve. No aortic valve stenosis or regurgitation. Tricuspid Valve Structurally normal tricuspid valve. Pulmonic Valve Structurally normal pulmonic valve. Pericardium Normal pericardium. No pericardial effusion. Aorta Normal size aortic root and proximal ascending aorta. CONCLUSIONS Normal LV function Previewed by: Dr. Cayetano Arboleda MD (Electronically Signed) Final Date: 01 April 2022 10:43
--- NOTE | 2022-04-01 10:50 | CA ---
Stress Echo Report Primo Gleason Age: 56 Gender: M : 1965 Exam Date: 04/01/2022 09:07 Exam Location: [facility] Ht (in): 66 Wt (lb): 220 Ordering Physician: Bairon Valentine MD ([id number]) Referring Physician: MARIE, Manager System: Chang Abarca Technologist Procedure CPT: Indication: CP ICD-9 Codes: Rhythm: Patient History: Chest Pain Cardiac Medications: Medications in past 24 hours: Contrast: Stress Results Protocol: [place] Total dose(mL): Exercise Duration (min:sec): Max ST Depression (mm): Angina Score: Sears Score: METS: 11.3 Resting HR: 75 Resting BP: 136 / 102 Peak HR: 149 Peak BP: 192 / 87 Max Predicted HR: 166 90 % Max Predicted HR Target HR: 141 Double Product: [id number] Stress Summary: BP Response: Reason for Termination: Reached target heart rate or work-load Cardiac Symptoms: Dyspnea ECG Analysis Resting ECG: Normal sinus rhythm normal axis normal intervals Stress ECG: No evidence of ST segment depression Arrhythmia: No significant cardiac arrhythmia Echo Analysis Resting Echo: Normal left ventricular size wall motion systolic function Peak Echo Analysis: Normal hyperdynamic response of all segments of myocardium noted MEASUREMENTS (Male/Female) Normal Values CONCLUSIONS Excellent exercise tolerance Negative stress test by EKG criteria Negative stress echo Dr. Cayetano Arboleda MD (Electronically Signed) Final Date: 01 April 2022 10:49
--- NOTE | 2022-04-01 11:51 | P.DS ---
Providers Date of admission: 03/30/22 12:28 Expected date of discharge: 04/01/22 Attending physician: Marcos Engle MD Consults: 03/30/22 12:11 Consult Physician Urgent Consulting Provider: Bairon Valentine Consult Reason/Comments: chest pain Do you want consulting provider notified?: Yes Primary care physician: Marcos Engle MD Hospital Course: Final Diagnoses: Chest pain, acute coronary syndrome ruled out, stress test pending Family history of CAD Hyperlipidemia Obesity, BMI 35.5 Hospital course: This a 56-year-old gentleman admitted with complaints of chest pain, unremarkable cardiac enzymes, evaluated by cardiology. Scheduled for a stress test this morning. Significant clinical improvement. Reports throughout the weekend has had fluctuating mild left chest pressure. This morning denies chest pain, palpitations or shortness of breath. Patient will be discharged home today in a stable condition with guarded prognosis pending stress test, final DC recommendations and clearance per cardiology. The impression and plan of care has been dictated as directed. : I performed a history and examination of this patient, discussed the same with the dictator. I agree with the dictator's note ,documented as a scribe. Any additional findings or plans will be noted. Patient Condition at Discharge: Stable Plan - Discharge Summary New Discharge Prescriptions: No Action No Known Home Medications Discharge Medication List No Known Home Medications 03/30/22 [History] Follow up Appointment(s)/Referral(s): Marcos Engle MD [Primary Care Provider] - 3 Days
== END 2022-04-01 12:43 | disposition home or self-care (01) ==
LOC: EC 10:25 → 6NMEDSUR 12:28
PROVIDERS: ADMIT Family Medicine; ATTEND Family Medicine
DX: R07.89 Other chest pain (principal); E78.00 Pure hypercholesterolemia, unspecified; J45.909 Unspecified asthma, uncomplicated; G25.81 Restless legs syndrome; E66.9 Obesity, unspecified; I51.7 Cardiomegaly; Z96.652 Presence of left artificial knee joint; Z80.1 Family history of malignant neoplasm of trachea, bronchus and lung; Z82.3 Family history of stroke; Z80.8 Family history of malignant neoplasm of other organs or systems; Z88.8 Allergy status to other drugs, medicaments and biological substances; Z68.35 Body mass index [BMI] 35.0-35.9, adult; Z82.49 Family history of ischemic heart disease and other diseases of the circulatory system
CPT/HCPCS: 99285; 36415; 93005; 93306; 93351; 85379; 83880; 80061; 80053; 83735; 84484; 85025; 85610; 85730; 71046; G0378 ×3

== ENCOUNTER 2023-05-05 20:02 | Emergency (ER) | payer BC ==
--- NOTE | 2023-05-05 20:14 | ED ---
Back Pain HPI - General Source: patient Limitations: no limitations <Kaitlin Can - Last Filed: 05/05/23 20:13> - General Source: patient, family, RN notes reviewed Limitations: no limitations <Jarett Delaney - Last Filed: 05/05/23 23:56> - General Chief Complaint: Back Pain/Injury Stated Complaint: abd/back pain Time Seen by Provider: 05/05/23 20:13 - History of Present Illness Initial Comments: 58-year-old male presenting with chief complaint of right flank pain. He was recently diagnosed with a kidney stone is unsure if it has passed. He is having worsening pain and nausea (Kaitlin Can) Patient is a pleasant 58-year-old male presenting to the emergency department with right flank pain. Onset of symptoms was several days ago. Patient was previously diagnosed with a 1.2 cm kidney stone. A jeffrey has had nausea. Discomfort worsens over the past several hours. Patient has had some sweats associated with this. (Jarett Delaney) - Related Data Previous Rx's Medication Instructions Recorded Cephalexin [Keflex] 500 mg PO TID #21 cap 05/05/23 Ketorolac [Toradol] 10 mg PO Q6HR PRN #15 tab 05/05/23 Ondansetron Odt [Zofran Odt] 4 mg PO Q8HR PRN #10 tab 05/05/23 Allergies Allergy/AdvReac Type Severity Reaction Status Date / Time metoclopramide [From Reglan] AdvReac Dyspnea/anx Verified 03/30/22 10:28 iety Review of Systems ROS Other: All systems not noted in ROS Statement are negative. <Kaitlin Can - Last Filed: 05/05/23 20:13> ROS Other: All systems not noted in ROS Statement are negative. Constitutional: Denies: fever Eyes: Denies: eye pain Respiratory: Denies: dyspnea Cardiovascular: Denies: chest pain Gastrointestinal: Reports: as per HPI, abdominal pain, nausea, vomiting Genitourinary: Denies: dysuria Skin: Denies: rash <Jarett Delaney - Last Filed: 05/05/23 23:56> ROS Statement: Those systems with pertinent positive or pertinent negative responses have been documented in the HPI. Past Medical History Past Medical History: Asthma, Hyperlipidemia Additional Past Medical History / Comment(s): asthma (child), RLS, back pain, cysts on kidneys History of Any Multi-Drug Resistant Organisms: None Reported Past Surgical History: Joint Replacement, Orthopedic Surgery Additional Past Surgical History / Comment(s): rotator cuff/bicep muscle cyst removed, left knee- partial knee replacement Past Anesthesia/Blood Transfusion Reactions: Previous Problems w/ Anesthesia Additional Past Anesthesia/Blood Transfusion Reaction / Comment(s): slow to wake Past Psychological History: No Psychological Hx Reported Smoking Status: Never smoker Past Alcohol Use History: Occasional Past Drug Use History: None Reported - Past Family History Mother Family Medical History: Cancer Additional Family Medical History / Comment(s): lung cancer mets to brain. Father Family Medical History: CVA/TIA <Kaitlin Can - Last Filed: 05/05/23 20:13> General Exam Limitations: no limitations <Kaitlin Can - Last Filed: 05/05/23 20:13> Limitations: no limitations General appearance: alert, in no apparent distress Head exam: Present: normocephalic Eye exam: Present: normal appearance Neck exam: Present: normal inspection Respiratory exam: Present: normal lung sounds bilaterally Cardiovascular Exam: Present: regular rate, normal rhythm Expanded Peripheral pulses: 2+: Dorsalis Pedis (R), Dorsalis Pedis (L) GI/Abdominal exam: Present: soft, tenderness (Mild tenderness right flank) Extremities exam: Present: normal inspection Neurological exam: Present: alert Psychiatric exam: Present: normal affect, normal mood Skin exam: Present: normal color <Jarett Delaney - Last Filed: 05/05/23 23:56> - General Exam Comments Initial Comments: Visual Physical Exam Vital signs reviewed General: Well-appearing, nontoxic, no acute distress. Head: Normocephalic, atraumatic Eyes: PERRLA, EOMI ENT: Airway patent Chest: Nonlabored breathing Skin: No visual rash, normal skin tone Neuro: Alert and oriented 3 Musculoskeletal: No gross abnormalities (Kaitlin Can) Course Vital Signs 05/05/23 20:07 Temperature 98.8 F Pulse Rate 76 Respiratory 18 Rate Blood Pressure 131/93 O2 Sat by Pulse 95 Oximetry Medical Decision Making <Jarett Delaney - Last Filed: 05/05/23 23:56> - Medical Decision Making Was pt. sent in by a medical professional or institution (Dr., PA, [facility], urgent care, hospital, or long term...) When possible be specific @ -No Did you speak to anyone other than the patient for history (EMS, parent, family, police, friend...)? What history was obtained from this source @ -Family is present and helps right history including recent diagnosis of kidney stone however they believed it was 1.2 cm Did you review nursing and triage notes (agree or disagree)? Why? @ -I reviewed and agree with nursing and triage notes Were old charts reviewed (outside hosp., previous admission, EMS record, old EKG, old radiological studies, urgent care reports/EKG's, long term records)? Report findings @ -No old charts were reviewed Differential Diagnosis (chest pain, altered mental status, abdominal pain women, abdominal pain men, vaginal bleeding, weakness, fever, dyspnea, syncope, headache, dizziness, GI bleed, back pain, seizure, CVA, palpatations, mental health, musculoskeletal)? @ -Differential Abdominal Pain Men: Appendicitis, cholecystitis, diverticulosis, ischemic bowel, pancreatitis, hepatitis, UTI, gastroenteritis, AAA, incarcerated hernia, bowel obstruction, constipation, inflammatory bowel, hepatitis, peptic ulcer disease, splenic infarction, perforated viscus, testicular torsion, this is not meant to be an all-inclusive list EKG interpreted by me (3pts min.). @ -As above X-rays interpreted by me (1pt min.). @ -None done CT interpreted by me (1pt min.). @ -Computed tomography scan of the abdomen pelvis shows mild right [place]. There is also probable 4 mm stone just proximal to the bladder at the right UVJ U/S interpreted by me (1pt. min.). @ -None done What testing was considered but not performed or refused? (CT, X-rays, U/S, labs)? Why? @ -None What meds were considered but not given or refused? Why? @ -None Did you discuss the management of the patient with other professionals (pr ofessionals i.e. JOHANA Landa, [facility], lab, RT, psych nurse, social media specialist, gasoline attendant, teacher, parachute/combatant diver officer, case managers)? Give summary @ -No Was smoking cessation discussed for >3mins.? @ -No Was critical care preformed (if so, how long)? @ -No Were there social determinants of health that impacted care today? How? (Homelessness, low income, unemployed, alcoholism, drug addiction, transportation, low edu. Level, literacy, decrease access to med. care, usp, rehab)? @ -No Was there de-escalation of care discussed even if they declined (Discuss DNR or withdrawal of care, Hospice)? DNR status @ -No What co-morbidities impacted this encounter? (DM, HTN, Smoking, COPD, CAD, Cancer, CVA, ARF, Chemo, Hep., AIDS, mental health diagnosis, sleep apnea, morbid obesity)? @ -None Was patient admitted / discharged? Hospital course, mention meds given and route, prescriptions, significant lab abnormalities, going to OR and other pertinent info. @ -Patient reevaluated and improved. Patient states discomfort is tolerable. Patient and family updated on results and need for follow-up. Patient will be started with antibiotics secondary to potential urinary tract infection. Additional medications prescribed. Patient will need follow-up with urology. Undiagnosed new problem with uncertain prognosis? @ -No Drug Therapy requiring intensive monitoring for toxicity (Heparin, Nitro, Insulin, Cardizem)? @ -No Were any procedures done? @ -No Diagnosis/symptom? @ -Ureterolithiasis Acute, or Chronic, or Acute on Chronic? @ -Acute Uncomplicated (without systemic symptoms) or Complicated (systemic symptoms)? @ -default Side effects of treatment? @ -No Exacerbation, Progression, or Severe Exacerbation? @ -No Poses a threat to life or bodily function? How? (Chest pain, [place], [place], pneumonia, PE, COPD, DKA, ARF, appy, cholecystitis, CVA, Diverticulitis, Homicidal, Suicidal, threat to staff... and all critical care pts) @ -No (Jarett Delaney) - Lab Data Lab Results 05/05/23 Range/Units 22:39 Urine Color Green Urine Appearance Slightly Cloudy (Clear) Urine pH 5.5 (5.0-8.0) Ur Specific [place] 1.022 (1.001-1.035) Urine Protein Trace H (Negative) Urine Glucose (UA) Negative (Negative) Urine Ketones Negative (Negative) Urine Blood Trace (Negative) Urine Nitrite Negative (Negative) Urine Bilirubin Negative (Negative) Urine Urobilinogen 2.0 (<2.0) mg/dL Ur Leukocyte Esterase Small (Negative) Urine RBC 17 H (0-5) /hpf Urine WBC 11 H (0-5) /hpf Urine Bacteria Rare H (None) /hpf Urine Mucus Many H (None) /hpf Disposition <Kaitlin Can - Last Filed: 05/05/23 20:13> Is patient prescribed a controlled substance at d/c from ED?: No Time of Disposition: 23:53 <Jarett Delaney - Last Filed: 05/05/23 23:56> Clinical Impression: Ureterolithiasis Disposition: HOME SELF-CARE Condition: Stable Instructions (If sedation given, give patient instructions): Kidney Stones (ED) Additional Instructions: Prescriptions have been sent to pharmacy. Please do follow-up with primary care physician in the next couple days for recheck. Also follow-up with urology, number provided. Return for fevers, increased pain, vomiting, worsening or changing symptoms or other concerns. Prescriptions: Cephalexin [Keflex] 500 mg PO TID #21 cap Ketorolac [Toradol] 10 mg PO Q6HR PRN #15 tab PRN Reason: Pain Ondansetron Odt [Zofran Odt] 4 mg PO Q8HR PRN #10 tab PRN Reason: Nausea Referrals: Marcos Engle MD [Primary Care Provider] - 1-2 days Duncan Joyner MD [STAFF PHYSICIAN] - 1-2 days
[2023-05-05 20:28] VITALS: TEMP 98.8
--- NOTE | 2023-05-05 21:18 | CT ---
EXAMINATION TYPE: CT abdomen pelvis wo con CT DLP: 828.7 mGycm, Automated exposure control for dose reduction was used. DATE OF EXAM: 05/05/2023 8:51 PM COMPARISON: CT abdomen pelvis most recent from 02/21/2021. CLINICAL INDICATION:Male, 58 years old with history of R flank pain; Recently diagnosed with a renal stone and diverticulitis. Increased Rt side flank pain and nausea. TECHNIQUE: Axial CT of the ;CT abdomen pelvis wo con;Sagittal and coronal reformats were created on a separate workstation. Contrast used: mL of , (none if empty) Oral contrast used: without Oral Contrast (none if empty) FINDINGS: LOWER CHEST: Unremarkable ABDOMEN LIVER: Unremarkable GALLBLADDER AND BILE DUCTS: Unremarkable. PANCREAS: Unremarkable. SPLEEN: Unremarkable. ADRENAL GLANDS: Unremarkable. KIDNEYS AND URETERS: Mild right hydroureteronephrosis secondary obstructing 4 mm calculus at the uret erovesicular junction. No evidence for left obstructive uropathy. No left renal calculi. No additiona l right renal calculi. PELVIS BLADDER: Unremarkable REPRODUCTIVE: Unremarkable. ABDOMEN & PELVIS STOMACH AND BOWEL: No evidence of bowel obstruction. Scattered colonic diverticula. The appendix is n ormal. PERITONEUM/RETROPERITONEUM: No evidence of pneumoperitoneum or free fluid. VASCULATURE: No evidence of aortic aneurysm. MUSCULOSKELETAL: No acute osseous abnormalities LYMPH NODES: No gross evidence for lymphadenopathy. SOFT TISSUE/ABDOMINAL WALL: Fat-containing inguinal hernia. IMPRESSION: Mild right hydroureteronephrosis secondary obstructing 4 mm calculus at the ureterovesicular junction .
[2023-05-05 22:54] LABS: Appearance,Urine Slightly Cloudy (Clear); Bilirubin,Urine Negative (Negative); Glucose,Urine (UA) Negative (Negative); Ketones,Urine Negative (Negative); PH, Urine 5.5 (5.0-8.0); Protein,Urine Trace (Negative)
[2023-05-05 22:55] LABS: Blood,Urine Trace (Negative); Leukocyte Esterase,Urine Small (Negative); Nitrite,Urine Negative (Negative)
[2023-05-05 22:56] LABS: Bacteria,Urine Rare /hpf; Mucus,Urine Many /hpf; RBC,Urine 17 /hpf (0-5); WBC,Urine 11 /hpf (0-5)
[2023-05-05 22:57] LABS: Specific Gravity,Urine 1.022 (1.001-1.035)
[2023-05-05] MEDS ORDERED: KETOROLAC 15 MG/ML 1 ML VIAL IM STA (22:59)
[2023-05-05] MEDS ORDERED: HYDROmorphone 1 MG/ML 1 ML SYRINGE IM STA (22:59)
[2023-05-05] MEDS ORDERED: ACET/COD 300 MG/30 MG STARTER PACK 6 TAB BTL PO STA (23:56)
[2023-05-06 00:29] VITALS: BP 123/77; PULSE 56; RESP 16
== END 2023-05-06 00:04 | disposition home or self-care (01) ==
LOC: EC 20:02
DX: N13.2 Hydronephrosis with renal and ureteral calculous obstruction (principal); J45.909 Unspecified asthma, uncomplicated; Z88.8 Allergy status to other drugs, medicaments and biological substances
CPT/HCPCS: 81001; 87086; 74176; 99284; 96372 ×2; J1170; J1885

== ENCOUNTER 2023-08-13 19:56 | Emergency (ER) | payer BC ==
[2023-08-13 20:28] VITALS: RESP 18; TEMP 98.6
--- NOTE | 2023-08-13 20:32 | ED ---
General Adult HPI - General Source: patient, RN notes reviewed Mode of arrival: ambulatory Limitations: no limitations <Vilma Gamino - Last Filed: 08/13/23 20:31> <Jonathan Mejia - Last Filed: 08/13/23 22:45> - General Chief complaint: Upper Respiratory Infection Stated complaint: flu like symptoms/BETO Time Seen by Provider: 08/13/23 20:31 - History of Present Illness Initial comments: Patient is a 58-year-old male presented to the ER with a chief complaint of cough and shortness of breath. He states he was seen at the [facility] urgent care on Friday and has not gotten any better. He is endorsing cough, congestion, chest discomfort, diarrhea. (Vilma Gamino) 58-year-old male presenting to the ED with a chief complaint of URI symptoms. Patient states 6 days ago started to experience URI symptoms including cough, congestion. Also notes body aches, nausea, diarrhea. Over the last 2 days has developed pain across his entire chest which is worse with coughing and deep breath. Reports that he was initially seen at an urgent care 6 days ago and tested negative for influenza and COVID. Was provided cough medications and was told that symptoms were likely viral in nature. Due to symptoms still ongoing presenting to the ED for further evaluation. Notes some chills however denies fever. No other complaints at this time. (Jonathan Mejia) - Related Data Previous Rx's Medication Instructions Recorded Cephalexin [Keflex] 500 mg PO TID #21 cap 05/05/23 Ondansetron Odt [Zofran Odt] 4 mg PO Q8HR PRN #10 tab 05/05/23 Ibuprofen [Motrin] 600 mg PO Q8HR PRN #24 tab 05/06/23 Allergies Allergy/AdvReac Type Severity Reaction Status Date / Time metoclopramide [From Reglan] AdvReac Dyspnea/anx Verified 03/30/22 10:28 iety Review of Systems ROS Other: All systems not noted in ROS Statement are negative. <Vilma Gamino - Last Filed: 08/13/23 20:31> ROS Other: All systems not noted in ROS Statement are negative. <Jonathan Mejia - Last Filed: 08/13/23 22:45> ROS Statement: Those systems with pertinent positive or pertinent negative responses have been documented in the HPI. Past Medical History Past Medical History: Asthma, Hyperlipidemia Additional Past Medical History / Comment(s): asthma (child), RLS, back pain, cysts on kidneys History of Any Multi-Drug Resistant Organisms: None Reported Past Surgical History: Joint Replacement, Orthopedic Surgery Additional Past Surgical History / Comment(s): rotator cuff/bicep muscle cyst removed, left knee- partial knee replacement Past Anesthesia/Blood Transfusion Reactions: Previous Problems w/ Anesthesia Additional Past Anesthesia/Blood Transfusion Reaction / Comment(s): slow to wake Past Psychological History: No Psychological Hx Reported Smoking Status: Never smoker Past Alcohol Use History: Occasional Past Drug Use History: None Reported - Past Family History Mother Family Medical History: Cancer Additional Family Medical History / Comment(s): lung cancer mets to brain. Father Family Medical History: CVA/TIA <Vilma Gamino - Last Filed: 08/13/23 20:31> General Exam Limitations: no limitations <Vilma Gamino - Last Filed: 08/13/23 20:31> General appearance: alert, in no apparent distress Eye exam: Present: normal appearance ENT exam: Present: normal exam Neck exam: Present: normal inspection Respiratory exam: Present: normal lung sounds bilaterally, other (Reproducible chest wall tenderness to palpation.). Absent: respiratory distress, accessory muscle use Cardiovascular Exam: Present: regular rate, normal rhythm GI/Abdominal exam: Present: soft Neurological exam: Present: alert, oriented X3 Skin exam: Present: warm, dry <Jonathan Mejia - Last Filed: 08/13/23 22:45> - General Exam Comments Initial Comments: Visual Physical Exam Vital signs reviewed General: Well-appearing, nontoxic, no acute distress. Head: Normocephalic, atraumatic Eyes: PERRLA, EOMI ENT: Airway patent Chest: Nonlabored breathing Skin: No visual rash, normal skin tone Neuro: Alert and oriented 3 Musculoskeletal: No gross abnormalities (Vilma Gamino) Course Vital Signs 08/13/23 08/13/23 08/13/23 20:08 21:12 21:33 Temperature 98.6 F Pulse Rate 84 83 Pulse Rate [ 82 Bilateral Radial] Respiratory 18 18 Rate Blood Pressure 121/76 139/92 O2 Sat by Pulse 97 96 Oximetry Medical Decision Making <Vilma Gamino - Last Filed: 08/13/23 20:31> - Lab Data Result diagrams: 08/13/23 20:52 08/13/23 20:52 <Jonathan Mejia - Last Filed: 08/13/23 22:45> - Medical Decision Making I performed the quick note portion of this chart. Electronically signed by Vilma Gamino PA-C (Vilma Gamino) Was pt. sent in by a medical professional or institution (JOHANA Landa, STATION INSTALLATION SUPERVISOR, urgent care, hospital, or detention...) When possible be specific @ -No Did you speak to anyone other than the patient for history (EMS, parent, family, police, friend...)? What history was obtained from this source @ -No Did you review nursing and triage notes (agree or disagree)? Why? @ -I reviewed and agree with nursing and triage notes Were old charts reviewed (outside hosp., previous admission, EMS record, old EKG, old radiological studies, urgent care reports/EKG's, detention records)? Report findings @ -No old charts were reviewed Differential Diagnosis (chest pain, altered mental status, abdominal pain women, abdominal pain men, vaginal bleeding, weakness, fever, dyspnea, syncope, headache, dizziness, GI bleed, back pain, seizure, CVA, palpatations, mental health, musculoskeletal)? @ -Differential Chest Pain: Stable Angina, Unstable Angina, STEMI, NSTEMI Aortic Dissection, Pneumothorax, Musculoskeletal, Esophageal Spasm GERD, Cholecystitis, Pancreatitis, Zoster, this is not meant to be an all-inclusive list. Differential Fever: Pneumonia, viral URI, endocarditis, myocarditis, pericarditis, otitis, sinusitis, peritonsillar Abscess, retropharyngeal Abscess, epiglottitis, peritonitis, appendicitis, Opal cystitis, diverticulitis, hepatitis, colitis, UTI, PID, TOA, pyelonephritis, prostatitis, epididymitis, meningitis, encephalitis, pulmonary embolism, CVA, thyroid storm, pancreatitis, adrenal crisis, cavernous sinus thrombosis, this is not meant to be an all-inclusive list. EKG interpreted by me (3pts min.). @ -EKG interpreted me showing a sinus rhythm with nonspecific findings. Rate of 73 bpm. VT 144, QRS 92, QT/QTc 389/364. X-rays interpreted by me (1pt min.). @ -Chest x-ray interpreted me which revealed no evidence of acute finding. CT interpreted by me (1pt min.). @ -None done U/S interpreted by me (1pt. min.). @ -None done What testing was considered but not performed or refused? (CT, X-rays, U/S, labs)? Why? @ -None What meds were considered but not given or refused? Why? @ -None Did you discuss the management of the patient with other professionals (professionals i.e. , PA, STATION INSTALLATION SUPERVISOR, lab, RT, psych nurse, high school social studies teacher, sheet manager, teacher, hazard mitigation officer, outsole caser)? Give summary @ -No Was smoking cessation discussed for >3mins.? @ -No Was critical care preformed (if so, how long)? @ -No Were there social determinants of health that impacted care today? How? (Homelessness, low income, unemployed, alcoholism, drug addiction, transportation, low edu. Level, literacy, decrease access to med. care, assisted, rehab)? @ -No Was there de-escalation of care discussed even if they declined (Discuss DNR or withdrawal of care, Hospice)? DNR status @ -No What co-morbidities impacted this encounter? (DM, HTN, Smoking, COPD, CAD, Cancer, CVA, ARF, Chemo, Hep., AIDS, mental health diagnosis, sleep apnea, morbid obesity)? @ -None Was patient admitted / discharged? Hospital course, mention meds given and route, prescriptions, significant lab abnormalities, going to OR and other pertinent info. @ -Discharge 58-year-old male presenting to the ED with complaints of continued URI symptoms for the past 6 days. Also notes that he started to develop some chest pain across his entire chest worse with cough and deep breath over the last two days. On exam reproducible chest wall tenderness to palpation. Lungs are clear with no evidence of respiratory distress. Patient presented as she was concerned as symptoms are still ongoing. Laboratory studies reviewed. CBC, CMP, UA unremarkable. Troponin undetectable. Serology panel positive for influenza A. Chest x-ray revealed no evidence of acute process. At this time symptoms likely viral in nature. Advised continued supportive care. Discharged home in stable condition. At discharge vital signs stable afebrile. Discussed return precauti ons with patient who verbalized agreement. Undiagnosed new problem with uncertain prognosis? @ -No Drug Therapy requiring intensive monitoring for toxicity (Heparin, Nitro, Insulin, Cardizem)? @ -No Were any procedures done? @ -No Diagnosis/symptom? @ -Influenza A Acute, or Chronic, or Acute on Chronic? @ -Acute Uncomplicated (without systemic symptoms) or Complicated (systemic symptoms)? @ -Uncomplicated Side effects of treatment? @ -No Exacerbation, Progression, or Severe Exacerbation? @ -No Poses a threat to life or bodily function? How? (Chest pain, [place], [place], pneumonia, PE, COPD, DKA, ARF, appy, cholecystitis, CVA, Diverticulitis, Homicidal, Suicidal, threat to staff... and all critical care pts) @ -Unlikely (Jonathan Mejia) - Lab Data Lab Results 08/13/23 08/13/23 08/13/23 Range/Units 20:15 20:52 20:52 WBC 6.0 (3.8-10.6) k/uL RBC 5.40 (4.30-5.90) m/uL Hgb 16.1 (13.0-17.5) gm/dL Hct 46.6 (39.0-53.0) % MCV 86.4 (80.0-100.0) fL MCH 29.7 (25.0-35.0) pg MCHC 34.4 (31.0-37.0) g/dL RDW 13.0 (11.5-15.5) % Plt Count 239 (150-450) k/uL MPV 7.8 Neutrophils % 62 % Lymphocytes % 24 % Monocytes % 9 % Eosinophils % 2 % Basophils % 1 % Neutrophils # 3.7 (1.3-7.7) k/uL Lymphocytes # 1.4 (1.0-4.8) k/uL Monocytes # 0.5 (0-1.0) k/uL Eosinophils # 0.1 (0-0.7) k/uL Basophils # 0.1 (0-0.2) k/uL PT 10.8 (10.0-12.5) sec INR 1.0 (<1.2) APTT 27.9 (22.0-30.0) sec Sodium (137-145) mmol/L Potassium (3.5-5.1) mmol/L Chloride (98-107) mmol/L Carbon Dioxide (22-30) mmol/L Anion Gap mmol/L BUN (9-20) mg/dL Creatinine (0.66-1.25) mg/dL Est GFR (CKD-EPI)AfAm (>60 ml/min/1.73 sqM) Est GFR (CKD-EPI)NonAf (>60 ml/min/1.73 sqM) Glucose (74-99) mg/dL Calcium (8.4-10.2) mg/dL Magnesium (1.6-2.3) mg/dL Total Bilirubin (0.2-1.3) mg/dL AST (17-59) U/L ALT (4-49) U/L Alkaline Phosphatase (38-126) U/L Troponin I (0.000-0.034) ng/mL Total Protein (6.3-8.2) g/dL Albumin (3.5-5.0) g/dL Influenza Type A (PCR) Detected A (Not Detectd) Influenza Type B (PCR) Not Detected (Not Detectd) RSV (PCR) Not Detected (Not Detectd) SARS-CoV-2 (PCR) Not Detected (Not Detectd) 08/13/23 08/13/23 Range/Units 20:52 20:52 WBC (3.8-10.6) k/uL RBC (4.30-5.90) m/uL Hgb (13.0-17.5) gm/dL Hct (39.0-53.0) % MCV (80.0-100.0) fL MCH (25.0-35.0) pg MCHC (31.0-37.0) g/dL RDW (11.5-15.5) % Plt Count (150-450) k/uL MPV Neutrophils % % Lymphocytes % % Monocytes % % Eosinophils % % Basophils % % Neutrophils # (1.3-7.7) k/uL Lymphocytes # (1.0-4.8) k/uL Monocytes # (0-1.0) k/uL Eosinophils # (0-0.7) k/uL Basophils # (0-0.2) k/uL PT (10.0-12.5) sec INR (<1.2) APTT (22.0-30.0) sec Sodium 136 L (137-145) mmol/L Potassium 4.4 (3.5-5.1) mmol/L Chloride 104 (98-107) mmol/L Carbon Dioxide 21 L (22-30) mmol/L Anion Gap 11 mmol/L BUN 20 (9-20) mg/dL Creatinine 0.85 (0.66-1.25) mg/dL Est GFR (CKD-EPI)AfAm >90 (>60 ml/min/1.73 sqM) Est GFR (CKD-EPI)NonAf >90 (>60 ml/min/1.73 sqM) Glucose 95 (74-99) mg/dL Calcium 9.2 (8.4-10.2) mg/dL Magnesium 2.2 (1.6-2.3) mg/dL Total Bilirubin 0.7 (0.2-1.3) mg/dL AST 42 (17-59) U/L ALT 43 (4-49) U/L Alkaline Phosphatase 63 (38-126) U/L Troponin I <0.012 (0.000-0.034) ng/mL Total Protein 7.3 (6.3-8.2) g/dL Albumin 4.4 (3.5-5.0) g/dL Influenza Type A (PCR) (Not Detectd) Influenza Type B (PCR) (Not Detectd) RSV (PCR) (Not Detectd) SARS-CoV-2 (PCR) (Not Detectd) Disposition <Vilma Gamino - Last Filed: 08/13/23 20:31> Is patient prescribed a controlled substance at d/c from ED?: No Time of Disposition: 22:45 <Jonathan Mejia - Last Filed: 08/13/23 22:45> Clinical Impression: Influenza Disposition: HOME SELF-CARE Condition: Good Instructions (If sedation given, give patient instructions): Influenza (ED), Costochondritis (ED) Additional Instructions: Please return to the Emergency Department if symptoms worsen or any other concerns. Please follow-up with your PCP. Referrals: Marcos Engle MD [Primary Care Provider] - 1-2 days
[2023-08-13 21:07] LABS: Basophils # (A) 0.1 k/uL (0-0.2); Basophils % (A) 1 %; Eosinophils # (A) 0.1 k/uL (0-0.7); Eosinophils % (A) 2 %; HCT 46.6 % (39.0-53.0); HGB 16.1 gm/dL (13.0-17.5); Lymphocytes # (A) 1.4 k/uL (1.0-4.8); Lymphocytes % (A) 24 %; MCH 29.7 pg (25.0-35.0); MCHC 34.4 g/dL (31.0-37.0); MCV 86.4 fL (80.0-100.0); Mean Platelet Volume 7.8; Monocytes # (A) 0.5 k/uL (0-1.0); Monocytes % (A) 9 %; Neutrophils # (A) 3.7 k/uL (1.3-7.7); Neutrophils % (A) 62 %; Platelet Count 239 k/uL (150-450)
[2023-08-13 21:21] LABS: Partial Thromboplastin Time 27.9 sec (22.0-30.0); Prothrombin Time 10.8 sec (10.0-12.5)
[2023-08-13 21:29] LABS: ALT 43 U/L (4-49); AST 42 U/L (17-59); African American GFR (CKD) >90 (>60 ml/min/1.73 sqM); Albumin 4.4 g/dL (3.5-5.0); Alkaline Phosphatase 63 U/L (38-126); Anion Gap 11 mmol/L; Blood Urea Nitrogen 20 mg/dL (9-20); Calcium 9.2 mg/dL (8.4-10.2); Carbon Dioxide 21 mmol/L (22-30); Chloride 104 mmol/L (98-107); Glucose 95 mg/dL (74-99); Magnesium 2.2 mg/dL (1.6-2.3); Non-African American GFR(CKD) >90 (>60 ml/min/1.73 sqM); Potassium 4.4 mmol/L (3.5-5.1); Sodium 136 mmol/L (137-145); Total Bilirubin 0.7 mg/dL (0.2-1.3); Total Protein 7.3 g/dL (6.3-8.2)
[2023-08-13] MEDS: KETOROLAC 15 MG/ML 1 ML VIAL IVP STA (21:58)
[2023-08-13] MEDS: SODIUM CHLORIDE 0.9% 1,000 ML IV STA (21:59)
[2023-08-13 22:04] VITALS: BP 139/92; PULSE 83
--- NOTE | 2023-08-13 22:17 | XR ---
EXAMINATION TYPE: XR chest 2V DATE OF EXAM: 08/13/2023 9:10 PM CLINICAL INDICATION:Male, 58 years old with history of Chest Pain; [facility] COMPARISON: Chest radiographs from 03/30/2022 TECHNIQUE: XR chest 2V Frontal and lateral views of the chest. FINDINGS: Lungs/Pleura: There is no evidence of pleural effusion, focal consolidation, or pneumothorax. Pulmonary vascularity: Unremarkable. Heart/mediastinum: Cardiomediastinal silhouette is unremarkable. Musculoskeletal: No acute osseous pathology. IMPRESSION: No acute cardiopulmonary disease/process.
== END 2023-08-13 22:58 | disposition home or self-care (01) ==
LOC: EC 19:56
DX: J10.1 Influenza due to other identified influenza virus with other respiratory manifestations (principal); J45.909 Unspecified asthma, uncomplicated; Z88.8 Allergy status to other drugs, medicaments and biological substances; Z20.822 Contact with and (suspected) exposure to COVID-19
CPT/HCPCS: 36415; 93005; 80053; 83735; 84484; 85025; 85610; 85730; 87636; 71046; 99285; 96374; 96361; J1885

== ENCOUNTER 2023-11-09 17:25 | Emergency (ER) | payer BC ==
[2023-11-09 18:03] VITALS: TEMP 98.6
--- NOTE | 2023-11-09 18:32 | ED ---
General Adult HPI - General Source: patient, RN notes reviewed Mode of arrival: ambulatory Limitations: no limitations <Lucila Long - Last Filed: 11/09/23 23:06> <Indu Appiah - Last Filed: 11/10/23 16:16> - General Chief complaint: Abdominal Pain Stated complaint: nausea Time Seen by Provider: 11/09/23 18:06 - History of Present Illness Initial comments: 58-year-old male with no significant past medical history presents to the emergency department for evaluation of left flank pain radiating to his abdomen. Patient states that the symptoms started mostly today that he has had similar pain on and off for the past couple months. He reports that it has never been this painful. He admits to diarrhea, nausea, vomiting. Denies fever but admits to chills. Denies any urinary symptoms. (Lucila Long) - Related Data Previous Rx's Medication Instructions Recorded Cephalexin [Keflex] 500 mg PO TID #21 cap 05/05/23 Ondansetron Odt [Zofran Odt] 4 mg PO Q8HR PRN #10 tab 05/05/23 Ibuprofen [Motrin] 600 mg PO Q8HR PRN #24 tab 05/06/23 Amoxic-Pot Clav 875-125Mg 1 tab PO Q12HR 10 Days #20 tab 11/10/23 [Augmentin 875-125] HYDROcodone/APAP 5-325MG [[place] 1 tab PO Q6HR PRN 3 Days #12 tab 11/10/23 5-325] Allergies Allergy/AdvReac Type Severity Reaction Status Date / Time metoclopramide [From Reglan] AdvReac Dyspnea/anx Verified 11/09/23 18:03 iety Review of Systems ROS Other: All systems not noted in ROS Statement are negative. <Lucila Long - Last Filed: 11/09/23 23:06> ROS Other: All systems not noted in ROS Statement are negative. <Indu Appiah - Last Filed: 11/10/23 16:16> ROS Statement: Those systems with pertinent positive or pertinent negative responses have been documented in the HPI. Past Medical History Past Medical History: Asthma, Hyperlipidemia Additional Past Medical History / Comment(s): asthma (child), RLS, back pain, cysts on kidneys History of Any Multi-Drug Resistant Organisms: None Reported Past Surgical History: Joint Replacement, Orthopedic Surgery Additional Past Surgical History / Comment(s): rotator cuff/bicep muscle cyst removed, left knee- partial knee replacement Past Anesthesia/Blood Transfusion Reactions: Previous Problems w/ Anesthesia Additional Past Anesthesia/Blood Transfusion Reaction / Comment(s): slow to wake Past Psychological History: No Psychological Hx Reported Smoking Status: Never smoker Past Alcohol Use History: Occasional Past Drug Use History: None Reported - Past Family History Mother Family Medical History: Cancer Additional Family Medical History / Comment(s): lung cancer mets to brain. Father Family Medical History: CVA/TIA <Lucila Long - Last Filed: 11/09/23 23:06> General Exam Limitations: no limitations General appearance: alert, in no apparent distress Head exam: Present: atraumatic, normocephalic, normal inspection Eye exam: Present: normal appearance, PERRL, EOMI. Absent: scleral icterus, conjunctival injection, periorbital swelling ENT exam: Present: normal exam, mucous membranes moist Neck exam: Present: normal inspection. Absent: tenderness, meningismus, lymphadenopathy Respiratory exam: Present: normal lung sounds bilaterally. Absent: respiratory distress, wheezes, rales, rhonchi, stridor Cardiovascular Exam: Present: regular rate, normal rhythm, normal heart sounds. Absent: systolic murmur, diastolic murmur, rubs, gallop, clicks GI/Abdominal exam: Present: soft, tenderness, normal bowel sounds. Absent: distended, guarding, rebound, rigid Extremities exam: Present: normal inspection, full ROM, normal capillary refill. Absent: tenderness, pedal edema, joint swelling, calf tenderness Back exam: Present: tenderness (left flank) Neurological exam: Present: alert, oriented X3 Psychiatric exam: Present: normal affect, normal mood Skin exam: Present: warm, dry, intact, normal color. Absent: rash <Lucila Long - Last Filed: 11/09/23 23:06> Course Vital Signs 11/09/23 11/10/23 18:01 00:32 Temperature 98.6 F Pulse Rate 64 58 L Respiratory 16 18 Rate Blood Pressure 157/92 127/75 O2 Sat by Pulse 98 97 Oximetry Medical Decision Making - Lab Data Result diagrams: 11/09/23 18:31 11/09/23 18:31 <Lucila Long - Last Filed: 11/09/23 23:06> - Lab Data Result diagrams: 11/09/23 18:31 11/09/23 18:31 <BijalIndu Leno - Last Filed: 11/10/23 16:16> - Medical Decision Making Was pt. sent in by a medical professional or institution (, [facility], RISK INTERN, urgent care, hospital, or [facility]...) When possible be specific @ -[No] Did you speak to anyone other than the patient for history (EMS, parent, family, police, friend...)? What history was obtained from this source @ -[No] Did you review nursing and triage notes (agree or disagree)? Why? @ -[I reviewed and agree with nursing and triage notes] Were old charts reviewed (outside hosp., previous admission, EMS record, old EKG, old radiological studies, urgent care reports/EKG's, [facility] records)? Report findings @ -[No old charts were reviewed] Differential Diagnosis (chest pain, altered mental status, abdominal pain women, abdominal pain men, vaginal bleeding, weakness, fever, dyspnea, syncope, headache, dizziness, GI bleed, back pain, seizure, CVA, palpatations, mental health, musculoskeletal)? @ -[Differential Abdominal Pain Men: Appendicitis, cholecystitis, diverticulosis, ischemic bowel, pancreatitis, hepatitis, UTI, gastroenteritis, AAA, incarcerated hernia, bowel obstruction, constipation, inflammatory bowel, hepatitis, peptic ulcer disease, splenic infarction, perforated viscus, testicular torsion, this is not meant to be an all-inclusive list ] EKG interpreted by me (3pts min.). @ -[none] X-rays interpreted by me (1pt min.). @ -[None done] CT interpreted by me (1pt min.). @ -[None done] U/S interpreted by me (1pt. min.). @ -[None done] What testing was considered but not performed or refused? (CT, X-rays, U/S, labs)? Why? @ -[None] What meds were considered but not given or refused? Why? @ -[None] Did you discuss the management of the patient with other professionals (vladimir briceno i.eDen Landa, J[facility], R[facility]K INTERN, lab, RT, psych nurse, social media community manager, roughing mill operator, teacher, forest fire management officer, director of casework department)? Give summary @ -[No] Was smoking cessation discussed for >3mins.? @ -[No] Was critical care preformed (if so, how long)? @ -[No] Were there social determinants of health that impacted care today? How? (Homelessness, low income, unemployed, alcoholism, drug addiction, transportation, low edu. Level, literacy, decrease access to med. care, detention, rehab)? @ -[No] Was there de-escalation of care discussed even if they declined (Discuss DNR or withdrawal of care, Hospice)? DNR status @ -[No] What co-morbidities impacted this encounter? (DM, HTN, Smoking, COPD, CAD, Cancer, CVA, ARF, Chemo, Hep., AIDS, mental health diagnosis, sleep apnea, morbid obesity)? @ -[None] Was patient admitted / discharged? Hospital course, mention meds given and route, prescriptions, significant lab abnormalities, going to OR and other pertinent info. @ -[hospital course] Undiagnosed new problem with uncertain prognosis? @ -[No] Drug Therapy requiring intensive monitoring for toxicity (Heparin, Nitro, Insulin, Cardizem)? @ -[No] Were any procedures done? @ -[No] Diagnosis/symptom? @ -[default] Acute, or Chronic, or Acute on Chronic? @ -[default] Uncomplicated (without systemic symptoms) or Complicated (systemic symptoms)? @ -[default] Side effects of treatment? @ -[No] Exacerbation, Progression, or Severe Exacerbation? @ -[No] Poses a threat to life or bodily function? How? (Chest pain, USA, MT, pneumonia, PE, COPD, DKA, ARF, appy, cholecystitis, CVA, Diverticulitis, Homicidal, S uicidal, threat to staff... and all critical care pts) @ -[No] (Lucila Long) Patient signed out to me pending CT read. Patient has had improvement in his symptoms with pain control. CT demonstrates mild diverticulitis. Back pain is likely due to musculoskeletal strain versus back disease. At this time patient will be discharged home on antibiotics and pain medications. He is to follow-up with his primary care doctor for possible imaging of his back. Return for any new or worsening symptoms. Patient agreeable to plan he was discharged in stable condition (Indu Appiah) - Lab Data Lab Results 11/09/23 11/09/23 11/09/23 Range/Units 18:31 18:31 18:31 WBC 6.8 (3.8-10.6) k/uL RBC 5.37 (4.30-5.90) m/uL Hgb 15.5 (13.0-17.5) gm/dL Hct 46.9 (39.0-53.0) % MCV 87.2 (80.0-100.0) fL MCH 28.8 (25.0-35.0) pg MCHC 33.1 (31.0-37.0) g/dL RDW 12.8 (11.5-15.5) % Plt Count 259 (150-450) k/uL MPV 7.9 Neutrophils % 49 % Lymphocytes % 32 % Monocytes % 11 % Eosinophils % 3 % Basophils % 1 % Neutrophils # 3.3 (1.3-7.7) k/uL Lymphocytes # 2.2 (1.0-4.8) k/uL Monocytes # 0.7 (0-1.0) k/uL Eosinophils # 0.2 (0-0.7) k/uL Basophils # 0.1 (0-0.2) k/uL Sodium 136 L (137-145) mmol/L Potassium 4.2 (3.5-5.1) mmol/L Chloride 106 (98-107) mmol/L Carbon Dioxide 27 (22-30) mmol/L Anion Gap 3 mmol/L BUN 19 (9-20) mg/dL Creatinine 0.88 (0.66-1.25) mg/dL Est GFR (CKD-EPI)AfAm >90 (>60 ml/min/1.73 sqM) Est GFR (CKD-EPI)NonAf >90 (>60 ml/min/1.73 sqM) Glucose 86 (74-99) mg/dL Plasma Lactic Acid J Luis (0.7-2.0) mmol/L Calcium 9.1 (8.4-10.2) mg/dL Total Bilirubin 0.9 (0.2-1.3) mg/dL AST 40 (17-59) U/L ALT 45 (4-49) U/L Alkaline Phosphatase 51 (38-126) U/L Total Protein 7.0 (6.3-8.2) g/dL Albumin 4.5 (3.5-5.0) g/dL Amylase 39 (30-110) U/L Lipase 75 (23-300) U/L Urine Color Yellow Urine Appearance Clear (Clear) Urine pH 6.0 (5.0-8.0) Ur Specific [place] 1.019 (1.001-1.035) Urine Protein Negative (Negative) Urine Glucose (UA) Negative (Negative) Urine Ketones Negative (Negative) Urine Blood Trace H (Negative) Urine Nitrite Negative (Negative) Urine Bilirubin Negative (Negative) Urine Urobilinogen <2.0 (<2.0) mg/dL Ur Leukocyte Esterase Negative (Negative) Urine RBC 1 (0-5) /hpf Urine WBC <1 (0-5) /hpf Urine Mucus Few H (None) /hpf 11/09/23 Range/Units 18:31 WBC (3.8-10.6) k/uL RBC (4.30-5.90) m/uL Hgb (13.0-17.5) gm/dL Hct (39.0-53.0) % MCV (80.0-100.0) fL MCH (25.0-35.0) pg MCHC (31.0-37.0) g/dL RDW (11.5-15.5) % Plt Count (150-450) k/uL MPV Neutrophils % % Lymphocytes % % Monocytes % % Eosinophils % % Basophils % % Neutrophils # (1.3-7.7) k/uL Lymphocytes # (1.0-4.8) k/uL Monocytes # (0-1.0) k/uL Eosinophils # (0-0.7) k/uL Basophils # (0-0.2) k/uL Sodium (137-145) mmol/L Potassium (3.5-5.1) mmol/L Chloride (98-107) mmol/L Carbon Dioxide (22-30) mmol/L Anion Gap mmol/L BUN (9-20) mg/dL Creatinine (0.66-1.25) mg/dL Est GFR (CKD-EPI)AfAm (>60 ml/min/1.73 sqM) Est GFR (CKD-EPI)NonAf (>60 ml/min/1.73 sqM) Glucose (74-99) mg/dL Plasma Lactic Acid J Luis 1.0 (0.7-2.0) mmol/L Calcium (8.4-10.2) mg/dL Total Bilirubin (0.2-1.3) mg/dL AST (17-59) U/L ALT (4-49) U/L Alkaline Phosphatase (38-126) U/L Total Protein (6.3-8.2) g/dL Albumin (3.5-5.0) g/dL Amylase (30-110) U/L Lipase (23-300) U/L Urine Color Urine Appearance (Clear) Urine pH (5.0-8.0) Ur Specific [place] (1.001-1.035) Urine Protein (Negative) Urine Glucose (UA) (Negative) Urine Ketones (Negative) Urine Blood (Negative) Urine Nitrite (Negative) Urine Bilirubin (Negative) Urine Urobilinogen (<2.0) mg/dL Ur Leukocyte Esterase (Negative) Urine RBC (0-5) /hpf Urine WBC (0-5) /hpf Urine Mucus (None) /hpf Disposition <Lucila Long - Last Filed: 11/09/23 23:06> Is patient prescribed a controlled substance at d/c from ED?: Yes When asked, does pt state using other controlled substances?: No If prescribed controlled substance>3 days was MAPS reviewed?: Prescribed <3 Days If opioid is for acute pain is fill amount 7 days or less?: Yes Time of Disposition: 00:11 <Indu Appiah - Last Filed: 11/10/23 16:16> Clinical Impression: Diverticulitis, Abdominal pain, Back pain Disposition: HOME SELF-CARE Condition: Stable Instructions (If sedation given, give patient instructions): Diverticulitis (ED) Additional Instructions: Take the antibiotics as directed. Use the pain medications as needed. Follow- up with your doctor. You may need imaging of your back. Return for any new or worsening symptoms Prescriptions: Amoxic-Pot Clav 875-125Mg [Augmentin 875-125] 1 tab PO Q12HR 10 Days #20 tab HYDROcodone/APAP 5-325MG [[place] 5-325] 1 tab PO Q6HR PRN 3 Days #12 tab PRN Reason: Severe Breakthrough Pain Referrals: Marcos Engle MD [Primary Care Provider] - 1-2 days
[2023-11-09] MEDS: SODIUM CHLORIDE 0.9% 1,000 ML IV STA (18:44)
[2023-11-09] MEDS: KETOROLAC 15 MG/ML 1 ML VIAL IVP STA (18:48)
[2023-11-09] MEDS: ONDANSETRON 4 MG/2 ML VIAL IVP STA (18:49)
[2023-11-09 19:01] LABS: Appearance,Urine Clear (Clear); Basophils # (A) 0.1 k/uL (0-0.2); Basophils % (A) 1 %; Bilirubin,Urine Negative (Negative); Blood,Urine Trace (Negative); Color,Urine Yellow; Eosinophils # (A) 0.2 k/uL (0-0.7); Eosinophils % (A) 3 %; Glucose,Urine (UA) Negative (Negative); HCT 46.9 % (39.0-53.0); HGB 15.5 gm/dL (13.0-17.5); Ketones,Urine Negative (Negative); Leukocyte Esterase,Urine Negative (Negative); Lymphocytes # (A) 2.2 k/uL (1.0-4.8); Lymphocytes % (A) 32 %; MCH 28.8 pg (25.0-35.0); MCHC 33.1 g/dL (31.0-37.0); MCV 87.2 fL (80.0-100.0); Mean Platelet Volume 7.9; Monocytes # (A) 0.7 k/uL (0-1.0); Monocytes % (A) 11 %; Mucus,Urine Few /hpf; Neutrophils # (A) 3.3 k/uL (1.3-7.7); Neutrophils % (A) 49 %; Nitrite,Urine Negative (Negative); Platelet Count 259 k/uL (150-450); Protein,Urine Negative (Negative); RBC 5.37 m/uL (4.30-5.90); RBC,Urine 1 /hpf (0-5); RDW 12.8 % (11.5-15.5); Specific Gravity,Urine 1.019 (1.001-1.035); Urobilinogen,Urine <2.0 mg/dL (<2.0); WBC 6.8 k/uL (3.8-10.6); WBC,Urine <1 /hpf (0-5)
[2023-11-09 19:20] LABS: ALT 45 U/L (4-49); African American GFR (CKD) >90 (>60 ml/min/1.73 sqM); Albumin 4.5 g/dL (3.5-5.0); Amylase 39 U/L (30-110); Anion Gap 3 mmol/L; Blood Urea Nitrogen 19 mg/dL (9-20); Calcium 9.1 mg/dL (8.4-10.2); Carbon Dioxide 27 mmol/L (22-30); Chloride 106 mmol/L (98-107); Glucose 86 mg/dL (74-99); Lipase 75 U/L (23-300); Non-African American GFR(CKD) >90 (>60 ml/min/1.73 sqM); Sodium 136 mmol/L (137-145); Total Bilirubin 0.9 mg/dL (0.2-1.3)
[2023-11-09 19:24] LABS: AST 40 U/L (17-59); Alkaline Phosphatase 51 U/L (38-126); Potassium 4.2 mmol/L (3.5-5.1)
[2023-11-09] MEDS: HYDROmorphone 1 MG/ML 1 ML SYRINGE IVP STA (21:30)
--- NOTE | 2023-11-09 23:43 | CT ---
EXAMINATION TYPE: CT abdomen pelvis w con CT DLP: 1350 mGycm, Automated exposure control for dose reduction was used. DATE OF EXAM: 11/09/2023 8:08 PM COMPARISON: None. CLINICAL INDICATION:Male, 58 years old with history of abdominal pain; abdominal pain TECHNIQUE: Axial CT of the abdomen and pelvis. Sagittal and coronal reformats were created on a [employer] workstation. Contrast used:100 ml mL of Isovue 300 with IV Contrast, (none if empty) Oral contrast used: without Oral Contrast (none if empty) FINDINGS: LOWER CHEST: Unremarkable ABDOMEN LIVER: Mild hepatic steatosis, otherwise unremarkable. GALLBLADDER AND BILE DUCTS: Gallbladder, if present appears contracted. There is no biliary tree dila tation. PANCREAS: Unremarkable. SPLEEN: Unremarkable. ADRENAL GLANDS: Unremarkable. KIDNEYS AND URETERS: Kidneys enhance symmetrically. There is a 1.9 cm exophytic cyst from the anterio r left kidney. No visible calculi or hydronephrosis. PELVIS BLADDER: Almost empty, grossly unremarkable otherwise. REPRODUCTIVE: Prostate mildly prominent measuring 40mm transverse. ABDOMEN & PELVIS STOMACH AND BOWEL: Stomach and small bowel are nondistended, no evidence of obstruction. The append ix appears within normal limits. Also the proximal colon without abnormality seen. There are several diverticula in the mid to distal descending and sigmoid colon. Involvement of the recurrent inflamma tion is seen, there is mild haziness in the region of the proximal sigmoid, and a mild diverticulitis is considered. PERITONEUM/RETROPERITONEUM: No evidence of pneumoperitoneum or free fluid. VASCULATURE: Mild atherosclerotic calcifications are present throughout the abdominal aorta and its b ranches. No evidence of aortic aneurysm. LYMPH NODES: No enlarged nodes by CT size criteria. SOFT TISSUE/ABDOMINAL WALL: Mild laxity along the anterior abdominal wall between the abdominal rectu s muscles, with superimposed small fat-containing umbilical hernia. MUSCULOSKELETAL: No acute osseous abnormalities. IMPRESSION: 1. Colonic diverticular disease, with possible mild inflammation in the proximal sigmoid region whic h could indicate a mild uncomplicated diverticulitis. 2. Otherwise, no acute abnormality demonstrated.
[2023-11-10] MEDS: metroNIDAZOLE 500 MG TAB PO STA (00:17)
[2023-11-10] MEDS: cefTRIAXone IN SWFI 1,000 MG/10 ML SYRINGE IVP STA (00:18)
[2023-11-10 00:33] VITALS: BP 127/75; PULSE 58; RESP 18
== END 2023-11-10 00:33 | disposition home or self-care (01) ==
LOC: EC 17:25
DX: K57.32 Diverticulitis of large intestine without perforation or abscess without bleeding (principal); Z88.8 Allergy status to other drugs, medicaments and biological substances
CPT/HCPCS: 99284; 96374; 96375 ×3; 96361; 36415; 80053; 82150; 83605; 83690; 85025; 81001; 74177; J2405; J0696; J1170; J1885; Q9967; 99285

== ENCOUNTER 2024-12-26 16:55 | Emergency (ER) | payer BC ==
[2024-12-26 18:19] LABS: Basophils % (A) 1.2 %; Eosinophils % (A) 3.6 %; HCT 42.7 % (39.6-50.0); HGB 14.5 g/dL (13.0-17.0); Lymphocytes # (A) 3.41 10*3/uL (0.90-5.00); Lymphocytes % (A) 37.5 %; MCH 29.0 pg (27.0-32.0); MCHC 34.0 g/dL (32.0-37.0); MCV 85.4 fL (80.0-97.0); Monocytes % (A) 9.7 %; Neutrophils # (A) 4.32 10*3/uL (1.80-7.70); Neutrophils % (A) 47.5 %; Platelet Count 291 10*3/uL (140-440); RBC 5.00 10*6/uL (4.40-5.60); RDW 12.8 % (11.5-14.5); WBC 9.10 10*3/uL (4.50-10.00)
[2024-12-26 18:20] LABS: Basophils # (A) 0.11 10*3/uL (0.00-0.10); Eosinophils # (A) 0.33 10*3/uL (0.04-0.35); Monocytes # (A) 0.88 10*3/uL (0.20-1.00)
[2024-12-26] MEDS: SODIUM CHLORIDE 0.9% 1,000 ML IV ONE (18:21)
[2024-12-26] MEDS: KETOROLAC 15 MG/ML 1 ML VIAL IVP STA (18:22)
[2024-12-26] MEDS: ONDANSETRON 4 MG/2 ML VIAL IVP STA (18:23)
[2024-12-26] MEDS: MORPHINE SULFATE 4 MG/ML SYRINGE IVP STA ×2 (18:27→19:47)
[2024-12-26 18:29] LABS: Bilirubin,Urine Negative (Negative); Blood,Urine Negative (Negative); Color,Urine Light Yellow; Glucose,Urine (UA) Negative (Negative); Ketones,Urine Negative (Negative); Leukocyte Esterase,Urine Negative (Negative); Nitrite,Urine Negative (Negative); PH, Urine 6.0 (5.0-8.0); Protein,Urine Negative (Negative); Specific Gravity,Urine 1.023 (1.001-1.035); Urobilinogen,Urine <2.0 mg/dL (<2.0)
[2024-12-26] MEDS: PANTOPRAZOLE 40 MG/10 ML VIAL IVP STA (18:29)
[2024-12-26 18:31] LABS: INR 1.0 (<1.2); Partial Thromboplastin Time 25.6 sec (22.0-30.0); Prothrombin Time 10.8 sec (10.0-12.5)
[2024-12-26 18:35] LABS: ALT 46 U/L (4-49); AST 39 U/L (17-59); African American GFR (CKD) >90 (>60 ml/min/1.73 sqM); Albumin 4.4 g/dL (3.5-5.0); Alkaline Phosphatase 53 U/L (38-126); Amylase 40 U/L (30-110); Anion Gap 7 mmol/L; Blood Urea Nitrogen 20 mg/dL (9-20); Calcium 9.5 mg/dL (8.4-10.2); Carbon Dioxide 25 mmol/L (22-30); Chloride 105 mmol/L (98-107); Glucose 97 mg/dL (74-99); Lipase 52 U/L (23-300); Non-African American GFR(CKD) >90 (>60 ml/min/1.73 sqM); Potassium 4.3 mmol/L (3.5-5.1); Sodium 137 mmol/L (137-145); Total Protein 6.9 g/dL (6.3-8.2)
--- NOTE | 2024-12-26 19:05 | CT ---
EXAMINATION TYPE: CT abdomen pelvis w con DATE OF EXAM: 12/26/2024 6:59 PM COMPARISON: CT abdomen/pelvis study 11/09/2023. CLINICAL INDICATION: Male, 59 years old with history of abdominal pain. LLQ and Left mid quad.; llq a bdominal pain TECHNIQUE: Axial CT abdomen pelvis w con;Sagittal and coronal reformats were created on a separate w orkstation. Contrast used:100 mL of Isovue 300 with IV Contrast, (none if empty) Oral contrast used: without Oral Contrast (none if empty) CT DLP: 1597.3 mGycm, Automated exposure control for dose reduction was used. FINDINGS: LOWER CHEST: Unremarkable ABDOMEN LIVER: Diffusely hypoattenuating parenchyma. GALLBLADDER AND BILE DUCTS: The gallbladder is surgically absent. PANCREAS: Unremarkable. SPLEEN: Unremarkable. ADRENAL GLANDS: Unremarkable. KIDNEYS AND URETERS: No evidence of hydronephrosis or renal calculus. The ureters are unremarkable. Indeterminate hypodense lesion in the left kidney measuring 13 mm, suboptimally evaluated on this sin gle phase study, consider correlation with outpatient renal ultrasound or MRI if clinically warranted . PELVIS BLADDER: No evidence for wall thickening or mass given limitations of exam. REPRODUCTIVE: Unremarkable. ABDOMEN & PELVIS STOMACH AND BOWEL: Stomach and duodenum are unremarkable. Colonic diverticulosis and short segment wa ll thickening of the descending colon with adjacent mesenteric fat stenting/acute inflammation. No dr tanika. Colonic abscess/fluid collection. No evidence of bowel obstruction. PERITONEUM/RETROPERITONEUM: No evidence of pneumoperitoneum or free fluid. VASCULATURE: No evidence of aortic aneurysm. MUSCULOSKELETAL: No acute osseous abnormalities LYMPH NODES: No gross evidence for lymphadenopathy. SOFT TISSUE/ABDOMINAL WALL: Unremarkable IMPRESSION: Findings compatible with acute uncomplicated diverticulitis of the descending colon. [facility], , 12/26/2024 7:03 PM
[2024-12-26 19:31] VITALS: PULSE 52; RESP 17
--- NOTE | 2024-12-26 19:39 | ED ---
General Adult HPI - General Chief complaint: Abdominal Pain Stated complaint: Pain in left side Time Seen by Provider: 12/26/24 17:55 Source: patient, RN notes reviewed, old records reviewed Mode of arrival: ambulatory Limitations: no limitations - History of Present Illness Initial comments: 59-year-old male who presents emergency department complaining of left lower quadrant abdominal pain. Has been ongoing for the last 3 days. Presents today for continued pain. No diarrhea, constipation. No change in flatus. No nausea or vomiting. He notes that located over the left lower and left mid quadrants. No radiation. No dysuria or hematuria. No urinary complaints. Has a history of asthma, abdominal hernia repair with mesh, diverticulitis. Presents for further evaluation at this time. - Related Data Previous Rx's Medication Instructions Recorded Cephalexin [Keflex] 500 mg PO TID #21 cap 05/05/23 Ondansetron Odt [Zofran Odt] 4 mg PO Q8HR PRN #10 tab 05/05/23 Ibuprofen [Motrin] 600 mg PO Q8HR PRN #24 tab 05/06/23 Amoxic-Pot Clav 875-125Mg 1 tab PO Q12HR 10 Days #20 tab 11/10/23 [Augmentin 875-125] HYDROcodone/APAP 5-325MG [[place] 1 tab PO Q6HR PRN 3 Days #12 tab 11/10/23 5-325] Amoxic-Pot Clav 875-125Mg 1 tab PO Q12HR 10 Days #20 tab 12/26/24 [Augmentin 875-125] Allergies Allergy/AdvReac Type Severity Reaction Status Date / Time metoclopramide [From Reglan] AdvReac Dyspnea/anx Verified 12/26/24 16:59 iety Review of Systems ROS Statement: Those systems with pertinent positive or pertinent negative responses have been documented in the HPI. Review of Systems: CONST: Denies fever EYES: Denies blurry vision ENT: Denies nasal congestion C/V: Denies Chest pain RESP: Denies shortness of breath GI: Endorses left lower quadrant abdominal pain : Denies dysuria SKIN: Denies rash. MSK: Denies joint pain. NEURO: Denies headache ROS Other: All systems not noted in ROS Statement are negative. Past Medical History Past Medical History: Asthma, Hyperlipidemia Additional Past Medical History / Comment(s): asthma (child), RLS, back pain, cysts on kidneys History of Any Multi-Drug Resistant Organisms: None Reported Past Surgical History: Joint Replacement, Orthopedic Surgery Additional Past Surgical History / Comment(s): rotator cuff/bicep muscle cyst removed, left knee- partial knee replacement Past Anesthesia/Blood Transfusion Reactions: Previous Problems w/ Anesthesia Additional Past Anesthesia/Blood Transfusion Reaction / Comment(s): slow to wake Past Psychological History: No Psychological Hx Reported Smoking Status: Never smoker Past Alcohol Use History: Occasional Past Drug Use History: None Reported - Past Family History Mother Family Medical History: Cancer Additional Family Medical History / Comment(s): lung cancer mets to brain. Father Family Medical History: CVA/TIA General Exam - General Exam Comments Initial Comments: General: Appears in mild distress secondary to pain HEAD: Normal with no signs of head trauma. EYES: EOMI ENT: Hearing grossly intact, normal oropharynx. RESPIRATORY: Clear breath sounds bilaterally. No wheezes, rales, or rhonchi. C/V: Regular rate and rhythm. S1 and S2 auscultated, no edema, peripheral pulses 2+ and intact throughout ABD: Abdomen soft, nondistended. Tender to palpation in the left mid and lower quadrants. No guarding. No rebound tenderness. No peritoneal signs. No CVA tenderness to percussion bilaterally. EXT: No obvious deformity. SKIN: No rashes or lesions observed on exposed skin. NEURO: Alert and oriented x 4. Limitations: no limitations Course Vital Signs 12/26/24 12/26/24 12/26/24 16:57 18:28 19:30 Temperature 97.5 F L Pulse Rate 63 53 L 52 L Respiratory 20 20 17 Rate Blood Pressure 144/90 151/97 144/85 O2 Sat by Pulse 99 98 99 Oximetry Medical Decision Making - Medical Decision Making Was pt. sent in by a medical professional or institution (, PA, ACTUARIAL DIRECTOR, urgent care, hospital, or correction...) When possible be specific @ -No Did you speak to anyone other than the patient for history (EMS, parent, family, police, friend...)? What history was obtained from this source @ -No Did you review nursing and triage notes (agree or disagree)? Why? @ -I reviewed and agree with nursing and triage notes Were old charts reviewed (outside hosp., previous admission, EMS record, old EKG, old radiological studies, urgent care reports/EKG's, correction records)? Report findings @ -No old charts were reviewed Differential Diagnosis (chest pain, altered mental status, abdominal pain women, abdominal pain men, vaginal bleeding, weakness, fever, dyspnea, syncope, headache, dizziness, GI bleed, back pain, seizure, CVA, palpatations, mental health, musculoskeletal)? @ -Differential Abdominal Pain Men: Appendicitis, cholecystitis, diverticulosis, ischemic bowel, pancreatitis, hepatitis, UTI, gastroenteritis, AAA, incarcerated hernia, bowel obstruction, constipation, inflammatory bowel, hepatitis, peptic ulcer disease, splenic infarction, perforated viscus, testicular torsion, this is not meant to be an all-inclusive list EKG interpreted by me (3pts min.). @ -As above X-rays interpreted by me (1pt min.). @ -None done CT interpreted by me (1pt min.). @ -CT imaging shows uncomplicated diverticulitis U/S interpreted by me (1pt. min.). @ -None done What testing was considered but not performed or refused? (CT, X-rays, U/S, labs)? Why? @ -None What meds were considered but not given or refused? Why? @ -None Did you discuss the management of the patient with other professionals (professionals i.e. , PA, ACTUARIAL DIRECTOR, lab, RT, psych nurse, director social welfare, shock absorption floor layer, teacher, chief nursing officer, renal case manager)? Give summary @ -No Was smoking cessation discussed for >3mins.? @ -No Was critical care preformed (if so, how long)? @ -No Were there social determinants of health that impacted care today? How? (Homelessness, low income, unemployed, alcoholism, drug addiction, transportation, low edu. Level, literacy, decrease access to med. care, skilled nursing, rehab)? @ -No Was there de-escalation of care discussed even if they declined (Discuss DNR or withdrawal of care, Hospice)? DNR status @ -No What co-morbidities impacted this encounter? (DM, HTN, Smoking, COPD, CAD, Cancer, CVA, ARF, Chemo, Hep., AIDS, mental health diagnosis, sleep apnea, morbid obesity)? @ -None Was patient admitted / discharged? Hospital course, mention meds given and route, prescriptions, significant lab abnormalities, going to OR and other pertinent info. @ -Patient presents for left-sided abdominal pain. We will obtain abdominal labs as well as CT imaging. Patient in agreement this plan. Vitals within acceptable limits. Ministered IV morphine, Zofran, Protonix, fluids. Also given IV Toradol. Laboratory studies are all within acceptable limits. Screening EKG shows no signs of acute ischemia. CT of the abdomen pelvis reveals uncomplicated diverticulitis. I update the patient. He will be discharged home at this time with starter pack of Tylenol 3 and Zofran as well as started on Augmentin and given a prescription for it. He was in agreement this plan. He follows with Dr. Saavedra and instructed follow-up with Dr. Saavedra if this has not improved. Strict return precautions discussed. I instructed the patient to follow up with their PCP in the next 1-3 days. I explained that the patient should return to the emergency department if they experience any worsening symptoms. Strict return precautions were discussed with the patient. The patient expressed understanding of these instructions. I answered all questions that the patient had. The patient was discharged home in good condition with their prescriptions and follow up information. Undiagnosed new problem with uncertain prognosis? @ -No Drug Therapy requiring intensive monitoring for toxicity (Heparin, Nitro, Insulin, Cardizem)? @ -No Were any procedures done? @ -No Diagnosis/symptom? @ -Diverticulitis Acute, or Chronic, or Acute on Chronic? @ -Acute Uncomplicated (without systemic symptoms) or Complicated (systemic symptoms)? @ -Uncomplicated Side effects of treatment? @ -No Exacerbation, Progression, or Severe Exacerbation? @ -No Poses a threat to life or bodily function? How? (Chest pain, [place], [place], pneumonia, PE, COPD, DKA, ARF, appy, cholecystitis, CVA, Diverticulitis, Homicidal, Suicidal, threat to staff... and all critical care pts) @ -Unlikely at this time - Lab Data Result diagrams: 12/26/24 18:14 12/26/24 18:14 Lab Results 12/26/24 12/26/24 12/26/24 Range/Units 18:14 18:14 18:14 WBC 9.10 (4.50-10.00) 10*3/uL RBC 5.00 (4.40-5.60) 10*6/uL Hgb 14.5 (13.0-17.0) g/dL Hct 42.7 (39.6-50.0) % MCV 85.4 (80.0-97.0) fL MCH 29.0 (27.0-32.0) pg MCHC 34.0 (32.0-37.0) g/dL Plt Count 291 (140-440) 10*3/uL MPV 9.9 (9.5-12.2) fL Immature Gran % (Auto) 0.5 % Neutrophils % 47.5 % Lymphocytes % 37.5 % Monocytes % 9.7 % Eosinophils % 3.6 % Basophils % 1.2 % Immature Gran # 0.05 H (0.00-0.04) 10*3/uL Neutrophils # 4.32 (1.80-7.70) 10*3/uL Lymphocytes # 3.41 (0.90-5.00) 10*3/uL Monocytes # 0.88 (0.20-1.00) 10*3/uL Eosinophils # 0.33 (0.04-0.35) 10*3/uL Basophils # 0.11 H (0.00-0.10) 10*3/uL PT 10.8 (10.0-12.5) sec INR 1.0 (<1.2) APTT 25.6 (22.0-30.0) sec Sodium (137-145) mmol/L Potassium (3.5-5.1) mmol/L Chloride (98-107) mmol/L Carbon Dioxide (22-30) mmol/L Anion Gap mmol/L BUN (9-20) mg/dL Creatinine (0.66-1.25) mg/dL Est GFR (CKD-EPI)AfAm (>60 ml/min/1.73 sqM) Est GFR (CKD-EPI)NonAf (>60 ml/min/1.73 sqM) Glucose (74-99) mg/dL Plasma Lactic Acid J Luis (0.7-2.0) mmol/L Calcium (8.4-10.2) mg/dL Total Bilirubin (0.2-1.3) mg/dL AST (17-59) U/L ALT (4-49) U/L Alkaline Phosphatase (38-126) U/L Total Protein (6.3-8.2) g/dL Albumin (3.5-5.0) g/dL Amylase (30-110) U/L Lipase (23-300) U/L Urine Color Light Yellow Urine Appearance Clear (Clear) Urine pH 6.0 (5.0-8.0) Ur Specific [place] 1.023 (1.001-1.035) Urine Protein Negative (Negative) Urine Glucose (UA) Negative (Negative) Urine Ketones Negative (Negative) Urine Blood Negative (Negative) Urine Nitrite Negative (Negative) Urine Bilirubin Negative (Negative) Urine Urobilinogen <2.0 (<2.0) mg/dL Ur Leukocyte Esterase Negative (Negative) 12/26/24 12/26/24 Range/Units 18:14 18:14 WBC (4.50-10.00) 10*3/uL RBC (4.40-5.60) 10*6/uL Hgb (13.0-17.0) g/dL Hct (39.6-50.0) % MCV (80.0-97.0) fL MCH (27.0-32.0) pg MCHC (32.0-37.0) g/dL Plt Count (140-440) 10*3/uL MPV (9.5-12.2) fL Immature Gran % (Auto) % Neutrophils % % Lymphocytes % % Monocytes % % Eosinophils % % Basophils % % Immature Gran # (0.00-0.04) 10*3/uL Neutrophils # (1.80-7.70) 10*3/uL Lymphocytes # (0.90-5.00) 10*3/uL Monocytes # (0.20-1.00) 10*3/uL Eosinophils # (0.04-0.35) 10*3/uL Basophils # (0.00-0.10) 10*3/uL PT (10.0-12.5) sec INR (<1.2) APTT (22.0-30.0) sec Sodium 137 (137-145) mmol/L Potassium 4.3 (3.5-5.1) mmol/L Chloride 105 (98-107) mmol/L Carbon Dioxide 25 (22-30) mmol/L Anion Gap 7 mmol/L BUN 20 (9-20) mg/dL Creatinine 0.92 (0.66-1.25) mg/dL Est GFR (CKD-EPI)AfAm >90 (>60 ml/min/1.73 sqM) Est GFR (CKD-EPI)NonAf >90 (>60 ml/min/1.73 sqM) Glucose 97 (74-99) mg/dL Plasma Lactic Acid J Luis 0.8 (0.7-2.0) mmol/L Calcium 9.5 (8.4-10.2) mg/dL Total Bilirubin 0.6 (0.2-1.3) mg/dL AST 39 (17-59) U/L ALT 46 (4-49) U/L Alkaline Phosphatase 53 (38-126) U/L Total Protein 6.9 (6.3-8.2) g/dL Albumin 4.4 (3.5-5.0) g/dL Amylase 40 (30-110) U/L Lipase 52 (23-300) U/L Urine Color Urine Appearance (Clear) Urine pH (5.0-8.0) Ur Specific Moran (1.001-1.035) Urine Protein (Negative) Urine Glucose (UA) (Negative) Urine Ketones (Negative) Urine Blood (Negative) Urine Nitrite (Negative) Urine Bilirubin (Negative) Urine Urobilinogen (<2.0) mg/dL Ur Leukocyte Esterase (Negative) - EKG Data -: EKG Interpreted by Me EKG Comments: 12-lead Electrocardiogram Interpretation Note EKG was reviewed and interpreted by myself. 12-lead ECG performed at 1820 is interpreted by me as revealing sinus bradycardia at a rate of 53 beats per jessica te. [place] is normal. [place] interval is 160 ms, QRS durations 102 ms, QTc is 375 ms.. There were no ST or T wave abnormalities to suggest myocardial ischemia or injury. R wave progression across the precordium was satisfactory. By my interpretation this EKG is non-diagnostic for acute ischemia. Disposition Clinical Impression: Diverticulitis Disposition: HOME SELF-CARE Condition: Good Instructions (If sedation given, give patient instructions): Diverticulitis (ED) Prescriptions: Amoxic-Pot Clav 875-125Mg [Augmentin 875-125] 1 tab PO Q12HR 10 Days #20 tab Is patient prescribed a controlled substance at d/c from ED?: No Referrals: Marcos Engle MD [Primary Care Provider] - 1-2 days Rosey Arboleda MD [STAFF PHYSICIAN] - 1-2 days Time of Disposition: 19:35
[2024-12-26] MEDS: ONDANSETRON 4 MG ODT STARTER PACK TAB BTL PO STA (19:45)
[2024-12-26] MEDS: ACET/COD 300 MG/30 MG STARTER PACK TAB BTL PO STA (19:45)
[2024-12-26] MEDS: AMOXIC-POT CLAV 875-125MG 1 EACH TAB PO STA (19:46)
[2024-12-26 20:10] VITALS: BP 154/98; TEMP 97.7
== END 2024-12-26 20:10 | disposition home or self-care (01) ==
LOC: EC 16:55
DX: K57.32 Diverticulitis of large intestine without perforation or abscess without bleeding (principal); Z88.8 Allergy status to other drugs, medicaments and biological substances
CPT/HCPCS: 36415; 93005; 80053; 82150; 83605; 83690; 85025; 85610; 85730; 81003; 74177; 99285; 96374; 96375; 96376; 96361; J2270; J2405; J1885; S0119; Q9967; J2470